=== PATIENT | female | born 1930 | race Caucasian/White ===

== ENCOUNTER 2017-05-24 12:07 | Inpatient (IN) | payer OTHER ==
--- NOTE | 2017-05-24 12:56 | PDOC ---
History of Present Illness - General Chief Complaint: Diarrhea Stated Complaint: Diarrhea Time Seen by Provider: 05/24/17 12:20 - History of Present Illness Initial Comments: 05/24/17 12:54 The patient is an 86 yo f w/ PMH Myesthenia gravis, HTN, DM, HLD who comes into the ER c/o diarrhea for the past 2 weeks. Patient states that the diarrhea started out as loose stool, but eventually progressed to watery stool which started to turn green. The patient states that she uses the bathroom 3 times per day on average. The diarrhea is associated with mild abdominal cramping, decreased appetite and weakness. Patient had a similar episode of these symptoms in late october which resolved after treatment which the patient could not remember. The patient was recently seen at [facility] ER on saturday for these complaints. The patient was diagnosed with a UTI and discharged on cipro which was later changed to amoxicillin/clavulinate as Cipro is contraindicated in myasthenia gravis. Patient denies fevers, chills, sick contacts, recent travel, nausea, vomiting, constipation, chest pain, SOB, chest tightness, blood in stool. Past History - Travel Traveled outside of the country in the last 30 days: No Close contact w/someone who was outside of country & ill: No - Past Medical History Allergies/Adverse Reactions: Allergies Allergy/AdvReac Type Severity Reaction Status Date / Time No Known Allergies Allergy Verified 05/24/17 12:13 Home Medications: Ambulatory Orders Amlodipine Besylate/Benazepril [Lotrel 10-20 mg Capsule] 1 cap PO BID 05/24/17 Amoxicillin/Potassium Clav [Augmentin 875-125 Tablet] 1 each PO DAILY 05/24/17 Fluoxetine HCl 10 mg PO DAILY 05/24/17 Hydralazine HCl 10 mg PO BID 05/24/17 Metformin HCl [Glucophage] 500 mg PO BID 05/24/17 Pantoprazole Sodium 40 mg PO DAILY 05/24/17 Potassium Chloride 10 meq PO DAILY 05/24/17 Pyridostigmine [Mestinon] 60 mg PO TID 05/24/17 Rosuvastatin [Crestor -] 10 mg PO DAILY 05/24/17 COPD: No Diabetes: Yes HTN: Yes Hypercholesterolemia: Yes Other medical history: myesthenia gravis - Surgical History Appendectomy: Yes Cholecystectomy: Yes - Suicide/Smoking/Psychosocial Hx Smoking History: Never smoked Abd/GI Specific PMHX - Complaint Specific PMHX Diverticulitis: No Gall Bladder Disease: Yes Review of Systems - Review of Systems Able to Perform ROS?: Yes Is the patient limited Omani proficient: No Constitutional: Yes: Loss of Appetite, Weakness. No: Chills, Diaphoresis, Fever , Malaise, Night Sweats HEENTM: No: Blurred Vision, Recent change in vision, Double Vision Respiratory: No: Cough, Shortness of Breath Cardiac (ROS): No: Chest Pain, Edema, Lightheadedness, Palpitations, Chest Tightness ABD/GI: Yes: Diarrhea, Poor Fluid Intake, Abdominal cramping. No: Abdominal Distended, Blood Streaked Bowels, Constipated, Rectal Bleeding, Vomiting : Yes: Incontinence (patient incontinent of urine at baseline). No: Burning, Dysuria Integumentary: Yes: Dryness, Pallor. No: Erythema Neurological: No: Headache, Numbness, Tingling Endocrine: No: Excessive Sweating, Intolerance to Cold, Intolerance to Heat *Physical Exam - Vital Signs Last Vital Signs Temp Pulse Resp BP Pulse Ox 97.8 F 76 20 145/69 94 L 05/24/17 12:28 05/24/17 12:28 05/24/17 12:28 05/24/17 12:28 05/24/17 12:28 - Physical Exam General Appearance: Yes: Appropriately Dressed. No: Apparent Distress HEENT: positive: EOMI, BEBE. negative: Scleral Icterus (R), Scleral Icterus (L) Neck: positive: Trachea midline. negative: Tender Respiratory/Chest: positive: Lungs Clear, Normal Breath Sounds. negative: Respiratory Distress, Accessory Muscle Use Cardiovascular: positive: Regular Rhythm, Regular Rate, S1, S2, Murmur ( systolic ejection murmur), Systolic Murmur. negative: Edema, JVD, Gallop/S3, Gallop/S4 Gastrointestinal/Abdominal: positive: Flat, Soft, Increased Bowel Sounds. negative: Tender Musculoskeletal: positive: Normal Inspection Extremity: positive: Normal Inspection Integumentary: positive: Dry, Warm, Pale Neurologic: positive: head of store operations II-XII NML intact, Fully Oriented, Alert, Normal Mood/ Affect, Normal Response, Motor Strength /5 ED Treatment Course - LABORATORY CBC & Chemistry Diagram: 05/24/17 13:12 05/24/17 13:12 Medical Decision Making - Medical Decision Making 05/24/17 13:45 The patient is an 86 yo f w/ PMH Myasthenia gravis, HTN, DM, HLD who comes into the ED c/o watery diarrhea and decreased appetite for the past 2 weeks. Patient was recently seen at [facility], diagnosed with a UTI and sent home on PO ABX which did not help. Patient has also had similar episodes of this diarrhea in the past. -CBC, CMP -Magnesium, Phosphorus -Stool for c.diff, Stool culture, stool for WBCs -IVF 05/24/17 14:11 -patient magnesium 1.1, repleted with 2g iv magnesium -potassium 3.1, repleted with 40meq potassium PO 05/24/17 16:20 -Patient became short of breath shortly after receiving IVF -CXR ordered; read as negative for infiltrate -patient saturating 93% on room air; was saturating 94% on arrival -placed on 2L NC -Patient improved after reassessment 05/24/17 18:45 -patient's SOB continues to improve, though she started to develop nausea; gave reglan -patient and her family member are concerned of her going home as she lives alone and will have difficulty ambulating due to her weakness. -patient's development of SOB and nausea is also concerning; will admit the patient for observation. hospitalist team contacted. 05/24/17 19:16 -hospitalist team aware and will accept the patient *DC/Admit/Observation/Transfer Diagnosis at time of Disposition: Hypokalemia, Shortness of breath Diarrhea Qualifiers: Diarrhea type: unspecified type Qualified Code(s): R19.7 - Diarrhea, unspecified; R19.7 - Diarrhea, unspecified - Discharge Dispostion Condition at time of disposition: Improved Admit: Yes
[2017-05-24 13:28] LABS: BASOPHIL 1.3 % (0-2.0); EOSINOPHIL 1.5 % (0-4.5); MCH 29.7 pg (25.7-33.7); MEAN PLT VOLUME 8.8 fl (7.5-11.1); NEUTROPHILS 58.6 % (42.8-82.8); PLATELET COUNT 296 K/MM3 (134-434); WHITE BLOOD COUNT 11.6 K/mm3 (4.0-10.0)
[2017-05-24] MEDS ORDERED: SODIUM CHLORIDE 500 ML IV STA (13:42)
[2017-05-24 13:57] LABS: ALBUMIN 3.5 g/dl (3.4-5.0); ALK PHOS 94 U/L (45-117); ANION GAP 14 (8-16); BILIRUBIN,TOTAL 0.3 mg/dL (0.2-1.0); CALCIUM 8.9 mg/dL (8.5-10.1); CO2 25 mmol/L (21-32); CREATININE 0.7 mg/dL (0.55-1.02); GLUCOSE,RANDOM 95 mg/dL (74-106); MAGNESIUM 1.1 mg/dL (1.8-2.4); SGOT/AST 26 U/L (15-37); SGPT/ALT 26 U/L (12-78); TOT PROT 6.5 g/dl (6.4-8.2)
--- NOTE | 2017-05-24 14:01 | PDOC ---
Attending Attestation - Resident Resident Name: Hemanth Leyva - ED Attending Attestation I have performed the following: I have examined & evaluated the patient, The case was reviewed & discussed with the resident, I agree w/resident's findings & plan, Exceptions are as noted - HPI HPI: 05/24/17 13:55 86y F hx of myasthemia gravis presens with diarrhea x 2 weeks, w/o associated fever/chills, abd pain, n/v, no complaints of weakness, diplopia, sob, difficulty swallowing or with speech +recent abx usage due to UTI, but the diarrhea precedes the abx usage no recen ttravel on exam the pt appears well abd soft mucus membranes moist cardiac/pulm exam normal - Physicial Exam PE: 05/26/17 14:59 see above - Medical Decision Making 05/24/17 17:24 pts labs revirewed and is unremarkable pt had a epsidoe of sob - after she got some fluids when returning from the bathroom. there was no associated cp, diaphoersis, n/v suspect may possible be due to receiving the fluids too quickly. her lungs were clear w/o and edema cxr shows no pulmonary edema will ambulate the pt, if pt is sob, will observe the pt for her sob and diuresis if she is feeling better, will dc with pm dfu 05/24/17 17:38 pt a bit tachpyneic and hypoxic will obseve the pt will also send a trop/bnp - she did not have any cp pt states she felt naueus and sob when this originally ocurred
[2017-05-24] MEDS ORDERED: MAGNESIUM SULF 50% (8.12 MEQ/2 ML-1 GM VIAL) IVPB ONE (14:06)
[2017-05-24] MEDS ORDERED: POTASSIUM CHLORIDE 20 MEQ PREMIX IVPB 100 ML IVPB ONE (14:06)
[2017-05-24] MEDS ORDERED: POTASSIUM CHLORIDE TABS 20 MEQ TABLET.ER (FP) PO ONE ×2 (14:07→15:12)
[2017-05-24] MEDS ORDERED: MAGNESIUM SULF 50% (8.12 MEQ/2 ML-1 GM VIAL) ONE (15:12)
[2017-05-24] MEDS ORDERED: METOCLOPRAMIDE HCL INJECTION 10 MG/2 ML VIAL IVPUSH ONE (17:20)
[2017-05-24 19:23] LABS: TROPONIN I 0.03 ng/ml (0.00-0.05)
--- NOTE | 2017-05-24 19:32 | HP ---
CHIEF COMPLAINT: Diarrhea PCP: Dr. Micky Perez HISTORY OF PRESENT ILLNESS: Ms. Delacruz is a pleasant 86yo F with PMHx of Myasthenia Gravis (diagnosed 1 yr ago), HTN, HLD who presented w/ diarrhea for 2 weeks. Started off as soft, brown but has changed into a watery green consistency recently. Has had diarrhea in past, seen at [facility] in October 2016, and was given antibiotics (unable to remember name) and improved. 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 She denies abdominal pain, ever having abd pain. Denies intermittent constipation. No fevers, chills, sick contacts, dietary changes. Recently has been on antibiotics for UTI, but diarrhea started prior to abx usage. Denies melena or hematemesis. Denies travel. Diagnosed with almost 1 year ago. Has had 2 crises since then. ER course was notable for: (1) Hemodynamically stable. Given 500cc bolus, caused pt to have SOB and BP 201/ 99 with nausea. CXR negative. Fluids stopped, Zofran given (2) Leukocytosis, Afebrile (3) Trop neg x1 Recent Travel: Denies PAST MEDICAL HISTORY: Myasthenia Gravis, HTN, HLD, NIDDM, MDD PAST SURGICAL HISTORY: Appendectomy, Cholecystectomy Social History: Lives alone, takes medications by herself Smoking: Denies Alcohol: Denies Drugs: Denies Allergies: No Known Allergies Allergy (Verified 05/24/17 12:13) HOME MEDICATIONS: Home Medications Medication Instructions Recorded Amlodipine Besylate/Benazepril 1 cap PO BID 05/24/17 [Lotrel 10-20 mg Capsule] Amoxicillin/Potassium Clav 1 each PO DAILY 05/24/17 [Augmentin 875-125 Tablet] Fluoxetine HCl 10 mg PO DAILY 05/24/17 Hydralazine HCl 10 mg PO BID 05/24/17 Metformin HCl [Glucophage] 500 mg PO BID 05/24/17 Pantoprazole Sodium 40 mg PO DAILY 05/24/17 Potassium Chloride 10 meq PO DAILY 05/24/17 Pyridostigmine [Mestinon] 60 mg PO TID 05/24/17 Rosuvastatin [Crestor -] 10 mg PO DAILY 05/24/17 REVIEW OF SYSTEMS CONSTITUTIONAL: Absent: fever, chills, diaphoresis, generalized weakness, malaise, loss of appetite, weight change HEENT: Absent: rhinorrhea, nasal congestion, throat pain, throat swelling, difficulty swallowing, mouth swelling, ear pain, eye pain, visual changes CARDIOVASCULAR: Absent: chest pain, syncope, palpitations, irregular heart rate, lightheadedness , peripheral edema RESPIRATORY: Absent: cough, shortness of breath, dyspnea with exertion, orthopnea, wheezing, stridor, hemoptysis GASTROINTESTINAL: Absent: abdominal pain, abdominal distension, nausea, vomiting, diarrhea, constipation, melena, hematochezia Present: diarrhea GENITOURINARY: Absent: dysuria, frequency, urgency, hesitancy, hematuria, flank pain, genital pain MUSCULOSKELETAL: Absent: myalgia, arthralgia, joint swelling, back pain, neck pain SKIN: Absent: rash, itching, pallor HEMATOLOGIC/IMMUNOLOGIC: Absent: easy bleeding, easy bruising, lymphadenopathy, frequent infections ENDOCRINE: Absent: unexplained weight gain, unexplained weight loss, heat intolerance, cold intolerance NEUROLOGIC: Absent: headache, focal weakness or paresthesias, dizziness, unsteady gait, seizure, mental status changes, bladder or bowel incontinence PSYCHIATRIC: Absent: anxiety, depression, suicidal or homicidal ideation, hallucinations. PHYSICAL EXAMINATION Vital Signs Temperature 97.8 F 05/24/17 12:28 Pulse Rate 76 05/24/17 16:28 Respiratory Rate 30 H 05/24/17 16:28 Blood Pressure 189/85 05/24/17 16:28 O2 Sat by Pulse Oximetry (%) 97 05/24/17 16:28 GEN: AAOx3, NAD HEENT: PERRLA, EOMi, no ptosis, no cervical LAD CV: S1, S2, RRR, 4/6 systolic murmur LUNG: CTABL ABD: Soft, mildly distended, nontender, hyperactive BS MSK: No edema, no erythema NEURO: Normal sensation, 5/5 strength throughout Laboratory Last Values WBC 11.6 K/mm3 (4.0-10.0) H 05/24/17 13:12 RBC 4.64 M/mm3 (3.60-5.2) 05/24/17 13:12 Hgb 13.8 GM/dL (10.7-15.3) 05/24/17 13:12 Hct 41.7 % (32.4-45.2) 05/24/17 13:12 MCV 90.0 fl (80-96) 05/24/17 13:12 MCH 29.7 pg (25.7-33.7) 05/24/17 13:12 MCHC 33.0 g/dl (32.0-36.0) 05/24/17 13:12 RDW 13.0 % (11.6-15.6) 05/24/17 13:12 Plt Count 296 K/MM3 (134-434) 05/24/17 13:12 MPV 8.8 fl (7.5-11.1) 05/24/17 13:12 Neutrophils % 58.6 % (42.8-82.8) 05/24/17 13:12 Lymphocytes % 30.0 % (8-40) 05/24/17 13:12 Monocytes % 8.6 % (3.8-10.2) 05/24/17 13:12 Eosinophils % 1.5 % (0-4.5) 05/24/17 13:12 Basophils % 1.3 % (0-2.0) 05/24/17 13:12 Sodium 139 mmol/L (136-145) 05/24/17 13:12 Potassium 3.1 mmol/L (3.5-5.1) L 05/24/17 13:12 Chloride 100 mmol/L (98-107) 05/24/17 13:12 Carbon Dioxide 25 mmol/L (21-32) 05/24/17 13:12 Anion Gap 14 (8-16) 05/24/17 13:12 BUN 7 mg/dL (7-18) 05/24/17 13:12 Creatinine 0.7 mg/dL (0.55-1.02) 05/24/17 13:12 Creat Clearance w eGFR > 60 (>60) 05/24/17 13:12 Random Glucose 95 mg/dL (74-106) 05/24/17 13:12 Calcium 8.9 mg/dL (8.5-10.1) 05/24/17 13:12 Phosphorus 3.0 mg/dL (2.5-4.9) 05/24/17 13:12 Magnesium 1.1 mg/dL (1.8-2.4) L 05/24/17 13:12 Total Bilirubin 0.3 mg/dL (0.2-1.0) 05/24/17 13:12 AST 26 U/L (15-37) 05/24/17 13:12 ALT 26 U/L (12-78) 05/24/17 13:12 Alkaline Phosphatase 94 U/L (45-117) 05/24/17 13:12 Creatine Kinase 108 IU/L (26-192) 05/24/17 18:37 Troponin I 0.03 ng/ml (0.00-0.05) 05/24/17 18:37 B-Natriuretic Peptide 655.96 pg/ml (5-450) H 05/24/17 18:37 Total Protein 6.5 g/dl (6.4-8.2) 05/24/17 13:12 Albumin 3.5 g/dl (3.4-5.0) 05/24/17 13:12 Active Medications Generic Name Dose Route Start Last Admin Trade Name Freq PRN Reason Stop Dose Admin Fluoxetine HCl 10 mg 05/25/17 10:00 Prozac - PO DAILY [facility] Heparin Sodium (Porcine) 5,000 unit 05/24/17 22:00 Heparin - SQ BID [facility] Hydralazine HCl 10 mg 05/24/17 23:00 Apresoline - PO BID [facility] Insulin Aspart 1 vial 05/24/17 22:00 Novolog Vial Sliding Scale - SQ ACHS [facility] Protocol Non-Formulary Medication 1 cap 05/24/17 23:00 Amlodipine Besylate/Benazepril [Lotrel 10-20 Mg Capsule] PO BID [facility] Pyridostigmine [place] 60 mg 05/24/17 23:00 Mestinon - PO TID [facility] Rosuvastatin Calcium 10 mg 05/25/17 10:00 Crestor - PO DAILY [facility] ASSESSMENT/PLAN: # Diarrhea - 2 weeks, leukocytosis, prior episodes relieved w/ abx, could be 2/ 2 infection vs sfx of Myasthenia - Start Flagyl/Ceftriaxone (quinolones exacerbate MG), C.diff Ag & Tox, stool studies, contact precautions - Will hold off on imaging due to no abd pain - Pt presented to [facility] in October 2016 w/ diarrhea, had abd CT w/ PO contrast and was given abx, should obtain records in AM - Recheck BP, if SBP >180 will hold fluids, otherwise will start 42cc/hr + clear liquid diet # Hypertensive Urgency - BP increased due to SOB episode in ER, improved w/ home meds, continue Amlodipine/Benazepril + Hydralazine # Hypokalemia/Hypomagnesemia - Replaced w/ IV Mg and PO KCl, likely 2/2 diarrhea , repeat BMP w/ Mg tmrw # NIDDM - ISS + BGMs ACHS, hold oral hypoglycemic agents # MDD - Continue Fluoxetine # HLD - Continue Statin # UTI - Diagnosed w/ UTI recently, was on Augmentin, will be treated with abx given here # FEN - Will recheck BP, if more controlled, will start IVF @ 75cc/hr, clear liquid diet, ADAT # PPx - HSQ BID, no GI ppx needed # Dispo - Admit to observation d/w Dr. Deborah Arteaga MD - PGY1 Internal Medicine Visit type - Emergency Visit Emergency Visit: Yes ED Registration Date: 05/24/17 Care time: The patient presented to the Emergency Department on the above date and was hospitalized for further evaluation of their emergent condition. - New Patient This patient is new to me today: Yes Date on this admission: 05/24/17 - Critical Care Critical Care patient: No
--- NOTE | 2017-05-24 21:30 | PN ---
Teaching Attending Note Name of Resident: Geovany Arteaga ATTENDING PHYSICIAN STATEMENT I saw and evaluated the patient. I reviewed the resident's note and discussed the case with the resident. I agree with the resident's findings and plan as documented. SUBJECTIVE: this is an 86 y/o female with mysthenia gravis, MDD, hypertension and dyslipidemia presented to the hospital with complaints of diarrhea, according to the patient she has had diarrhea for the past 2 wks, she stated that she recently has been on an antibiotic for the management of urinary tract infection. the patient state that she had a change in the color of stools to be green in color. she stated that the patient that she had diarrhea in the past but the color was usually brown. but it is watery as it is today. she has been losing weight, patient stated that is has been due to the lack of eating. she has similar admissions in the past to different hospital where according to the patient she has had a CT abdomen and they found an adrenal mass , she has been following up with an machine welder for the mass which was diagnosed 10/2016. she has no abdominal symptoms at the time of exam. she denied any food intake for outside cv OBJECTIVE: patient is laying comfortably in bed without any issues s1 and S2 RRR, with a systolic murmur heard over the aortic valve lungs CTA bowel sounds hyperactive, distended without any tenderness noted no ext edema patient was noted to be hypertensive at the time of exam she received bolus of fluid in the ER ASSESSMENT AND PLAN: admit this patient for colitis vs c. diff start the patient on metronidazole 500mg BID avoid quinolones due to QT prolongation and possible exacerbation of MS ceftriaxone for urinary symptoms place the patient on contact isolation send stool studies obtain records for abdominal CT scan repeat abdominal CT scan with contrast IV/PO if the patient is having symptoms. electrolyte abnormalities replenishment of Mg replenishment of K+ c/w home medication
[2017-05-24] MEDS: HEPARIN NA (PORCINE) 5,000 UNITS/ML 1ML VIAL SQ SCH (22:37)
[2017-05-24] MEDS ORDERED: PATIENT'S OWN MEDICATION (NON-FORMULARY) (Amlodipine Besylate/Benazepril [Lotrel 10-20 Mg PO SCH (23:00)
[2017-05-24] MEDS: PYRIDOSTIGMINE BROMIDE 60 MG TABLET PO SCH (23:37)
[2017-05-24] MEDS: hydrALAZINE HCL 10 MG TABLET PO SCH (23:37)
[2017-05-24] MEDS: amLODIPine BESYLATE 10 MG TABLET (FP) PO SCH (23:37)
[2017-05-24] MEDS: LISINOPRIL 20 MG TABLET (FP) PO SCH (23:37)
[2017-05-24] MEDS: INSULIN SLIDING SCALE (NOVOLOG) 1 VIAL SQ SCH (23:41)
[2017-05-25 03:51] VITALS: BMI 27.1
[2017-05-25] MEDS: PYRIDOSTIGMINE BROMIDE 60 MG TABLET PO SCH ×3 (06:43→22:50)
[2017-05-25] MEDS: INSULIN SLIDING SCALE (NOVOLOG) 1 VIAL SQ SCH ×4 (06:44→22:50)
[2017-05-25 07:47] LABS: ANION GAP 13 (8-16); CALCIUM 8.4 mg/dL (8.5-10.1); CO2 24 mmol/L (21-32); CREATININE 0.6 mg/dL (0.55-1.02); GLUCOSE,RANDOM 130 mg/dL (74-106); MAGNESIUM 1.4 mg/dL (1.8-2.4)
[2017-05-25 08:11] LABS: MCH 30.2 pg (25.7-33.7); MCHC 33.7 g/dl (32.0-36.0); MEAN CELL VOLUME 89.6 fl (80-96); MEAN PLT VOLUME 9.6 fl (7.5-11.1); PLATELET COUNT 287 K/MM3 (134-434); RDW 13.2 % (11.6-15.6)
[2017-05-25] MEDS: LISINOPRIL 20 MG TABLET (FP) PO SCH (10:28)
[2017-05-25] MEDS: ROSUVASTATIN CA 10 MG TABLET (FP) PO SCH (10:28)
[2017-05-25] MEDS: hydrALAZINE HCL 10 MG TABLET PO SCH ×2 (10:28→22:50)
[2017-05-25] MEDS: FLUoxetine HCL 10 MG CAPSULE (FP) PO SCH (10:28)
[2017-05-25] MEDS: amLODIPine BESYLATE 10 MG TABLET (FP) PO SCH (10:28)
[2017-05-25] MEDS: HEPARIN NA (PORCINE) 5,000 UNITS/ML 1ML VIAL SQ SCH ×2 (10:29→22:50)
[2017-05-25] MEDS ORDERED: POTASSIUM CHLORIDE TABS 20 MEQ TABLET.ER (FP) PO SCH ×2 (11:15→13:00)
[2017-05-25] MEDS ORDERED: MAGNESIUM SULF 50% (8.12 MEQ/2 ML-1 GM VIAL) IVPB ONE (12:00)
[2017-05-25] MEDS: POTASSIUM CHLORIDE ORAL LIQUID 20 MEQ/15 ML PO SCH ×2 (12:38→22:50)
[2017-05-25] MEDS: metroNIDAZOLE 250 MG TABLET PO SCH ×2 (15:08→22:50)
--- NOTE | 2017-05-25 16:11 | PN ---
Physical Exam: SUBJECTIVE: Patient seen and examined oob to chair. Nephew who is HCP present. Difficulty swallowing, choked on some liquid earlier, still coughing. HPI additional history: Patient was in [facility] a week ago for a UTI. She was discharged on antibiotics but only took 2 out of 7 doses because she could not swallow the pills. She has had difficulty swallowing x 2 weeks. Patient's neurologist, Dr. Urrutia, at [facility], has been planning on starting patient on IVIG. Her last acute exacerbation of myasthenia gravis was in August 2016 exhibited as difficulty swallowing. OBJECTIVE: Vital Signs Period Temp Pulse Resp BP Sys/Coulter Pulse Ox Last 24 Hr 97.2 F-98.2 F 66-90 18-20 141-160/59-79 96-97 GENERAL: The patient is awake, alert, and fully oriented, in mild distress secondary to coughing LUNGS: Weak inspiratory effort, no wheezes, no crackles, no accessory muscle use. Weak cough, not clearing secretions. HEART: Regular rate and rhythm, S1, S2, + murmur ABDOMEN: Soft, nontender, nondistended EXTREMITIES: 2+ pulses, warm, well-perfused, no edema. NEUROLOGICAL: Bilateral lid drooping Laboratory Results - last 24 hr 05/24/17 05/25/17 05/25/17 23:40 06:20 06:20 WBC 10.0 RBC 4.55 Hgb 13.7 Hct 40.7 MCV 89.6 MCH 30.2 MCHC 33.7 RDW 13.2 Plt Count 287 MPV 9.6 Puncture Site ABG pH ABG pCO2 at Pt Temp ABG pO2 at Pt Temp ABG HCO3 ABG O2 Sat (Measured) ABG O2 Content ABG Base Excess Vasyl Test O2 Delivery Device Oxygen Flow Rate PEEP Sodium 139 Potassium 3.2 L Chloride 102 Carbon Dioxide 24 Anion Gap 13 BUN 8 Creatinine 0.6 POC Glucometer 118 Random Glucose 130 H D Calcium 8.4 L Magnesium 1.4 L D 05/25/17 05/25/17 05/25/17 06:42 11:18 16:35 WBC RBC Hgb Hct MCV MCH MCHC RDW Plt Count MPV Puncture Site Left radial ABG pH 7.35 ABG pCO2 at Pt Temp 48.0 H ABG pO2 at Pt Temp 127.0 H ABG HCO3 25.8 ABG O2 Sat (Measured) 98.3 ABG O2 Content 19.3 ABG Base Excess 0.1 Vasyl Test Positive O2 Delivery Device Nasal Oxygen Flow Rate 2 PEEP 0.0 Sodium Potassium Chloride Carbon Dioxide Anion Gap BUN Creatinine POC Glucometer 132 130 Random Glucose Calcium Magnesium 05/25/17 17:07 WBC RBC Hgb Hct MCV MCH MCHC RDW Plt Count MPV Puncture Site ABG pH ABG pCO2 at Pt Temp ABG pO2 at Pt Temp ABG HCO3 ABG O2 Sat (Measured) ABG O2 Content ABG Base Excess Vasyl Test O2 Delivery Device Oxygen Flow Rate PEEP Sodium Potassium Chloride Carbon Dioxide Anion Gap BUN Creatinine POC Glucometer 165 Random Glucose Calcium Magnesium Active Medications Generic Name Dose Route Start Last Admin Trade Name Freq PRN Reason Stop Dose Admin Amlodipine Besylate 10 mg 05/24/17 23:30 05/25/17 10:28 Norvasc - PO 10 mg DAILY THANH Administration Fluoxetine HCl 10 mg 05/25/17 10:00 05/25/17 10:28 Prozac - PO 10 mg DAILY [facility] Administration Heparin Sodium (Porcine) 5,000 unit 05/24/17 22:00 05/25/17 10:29 Heparin - SQ Not Given BID [facility] Hydralazine HCl 10 mg 05/24/17 23:00 05/25/17 10:28 Apresoline - PO 10 mg BID [facility]AN[facility] Administration Insulin Aspart 1 vial 05/24/17 22:00 05/25/17 11:20 Novolog Vial Sliding Scale - SQ Not Given ACHS [facility] Protocol Lisinopril 20 mg 05/24/17 23:30 05/25/17 10:28 Prinivil PO 20 mg DAILY THANH Administration Metronidazole 500 mg 05/25/17 14:00 05/25/17 15:08 Flagyl - PO Not Given TID THANH Potassium Chloride 40 meq 05/25/17 12:30 05/25/17 12:38 Potassium Chloride Oral Liquid PO 05/25/17 22:01 40 meq BID THANH Administration Pyridostigmine [place] 60 mg 05/24/17 23:00 05/25/17 15:09 Mestinon - PO Not Given TID [facility]ANH Rosuvastatin Calcium 10 mg 05/25/17 10:00 05/25/17 10:28 Crestor - PO 10 mg DAILY THANH Administration ASSESSMENT/PLAN 86 year-old female with a PMH significant for HTN, HLD, NIDDM, and myasthenia gravis x 1 year. Presented with primary complaint of diarrhea x 2 weeks. Exhibits signs and symptoms of myasthenia gravis exacerbation with hypercapnic respiratory distress. Converted to inpatient status. Myasthenia gravis exacerbation Hypercapnic respiratory distress --inability to swallow, keep NPO --bulbar symptoms: lid lag --PaCO2 48 --per patient and HCP, neurologist has been planning on starting IVIG --neuro consult requested Systolic heart murmur possibly secondary to aortic stenosis --murmur on exam, together with spike in BP following 500cc bolus of IV fluids in ED, concern for aortic stenosis --echo ordered --very gentle IV fluids while NPO Diarrhea --monitor and correct electrolytes --no fever, no leukocytosis, c.diff neg; stop metronidazole F/E/N Fluids: NS @ 42mL/hr Electrolytes: replete as indicated Nutrition: NPO; swallow evaluation DVT prophylaxis: subq heparin Dispo: requires inpatient care. Full Code. Visit type - Emergency Visit Emergency Visit: Yes ED Registration Date: 05/24/17 Care time: The patient presented to the Emergency Department on the above date and was hospitalized for further evaluation of their emergent condition. - New Patient This patient is new to me today: Yes Date on this admission: 05/25/17 - Critical Care Critical Care patient: No
[2017-05-25 17:41] LABS: ARTERIAL BLD GAS O2 SATURATION 98.3 % (90-98.9); ARTERIAL BLOOD GAS BASE EXCESS 0.1 meq/l (-2-2); ARTERIAL BLOOD GAS HCO3 25.8 meq/L (22-26); ARTERIAL BLOOD GAS pH 7.35 (7.35-7.45)
[2017-05-25 17:43] LABS: ALLENS TEST POSITIVE; ART PUNCT SITE LEFT RADIAL; LPM/O2% 2; PT. ON O2? YES; TYPE OF O2 NASAL
[2017-05-25] MEDS ORDERED: PT OWN MED DRAWER 7, Y5N ONE (21:33)
[2017-05-25] MEDS ORDERED: SODIUM CHLORIDE 1,000 ML IV SCH (22:15)
[2017-05-26 01:47] LABS: URINE APPEARANCE CLEAR; URINE BILIRUBIN NEGATIVE (NEGATIVE); URINE BLOOD NEGATIVE (NEGATIVE); URINE COLOR YELLOW; URINE GLUCOSE (UA) 1+ (NEGATIVE); URINE KETONE 1+ (NEGATIVE); URINE NITRITE NEGATIVE (NEGATIVE); URINE UROBILINOGEN NEGATIVE mg/dL (0.2-1.0)
[2017-05-26 01:48] LABS: URINE PROTEIN 1+ (NEGATIVE)
[2017-05-26 01:50] LABS: URINE HYALINE CAST 12 /lpf; URINE MUCUS RARE; URINE RBC 4; URINE WBC 15
[2017-05-26] MEDS: PYRIDOSTIGMINE BROMIDE 60 MG TABLET PO SCH ×3 (06:41→22:05)
[2017-05-26] MEDS: INSULIN SLIDING SCALE (NOVOLOG) 1 VIAL SQ SCH ×4 (06:41→21:33)
[2017-05-26] MEDS ORDERED: METOPROLOL TARTRATE 5 MG/5 ML VIAL ONE (09:16)
[2017-05-26] MEDS ORDERED: METOPROLOL TARTRATE 5 MG/5 ML VIAL IVPUSH ONE (09:32)
[2017-05-26] MEDS ORDERED: dilTIAZem HCL 50 MG/10 ML - 10 ML VIAL IVPUSH ONE (09:33)
--- NOTE | 2017-05-26 09:40 | PN ---
Progress Note (short form) - Note Progress Note: Subjective: feels palpitations , has no CP , has no fever or chills. slightly short of breath . no cough . Objective: Vital Signs: Last Vital Signs Temp Pulse Resp BP Pulse Ox 97.6 F 109 H 20 156/80 96 05/26/17 06:00 05/26/17 06:00 05/26/17 06:00 05/26/17 06:00 05/25/17 21:00 Laboratory Results - last 24 hr 05/25/17 05/25/17 05/25/17 11:18 16:35 17:07 Puncture Site Left radial ABG pH 7.35 ABG pCO2 at Pt Temp 48.0 H ABG pO2 at Pt Temp 127.0 H ABG HCO3 25.8 ABG O2 Sat (Measured) 98.3 ABG O2 Content 19.3 ABG Base Excess 0.1 Vasyl Test Positive O2 Delivery Device Nasal Oxygen Flow Rate 2 PEEP 0.0 POC Glucometer 130 165 Urine Color Urine Appearance Urine pH Ur Specific [place] Urine Protein Urine Glucose (UA) Urine Ketones Urine Blood Urine Nitrite Urine Bilirubin Urine Urobilinogen Urine RBC Urine WBC Ur Epithelial Cells Hyaline Casts Urine Mucus 05/25/17 05/25/17 05/26/17 19:15 22:48 06:52 Puncture Site ABG pH ABG pCO2 at Pt Temp ABG pO2 at Pt Temp ABG HCO3 ABG O2 Sat (Measured) ABG O2 Content ABG Base Excess Vasyl Test O2 Delivery Device Oxygen Flow Rate PEEP POC Glucometer 125 200 Urine Color Yellow Urine Appearance Clear Urine pH 5.0 Ur Specific [place] 1.015 Urine Protein 1+ H Urine Glucose (UA) 1+ H Urine Ketones 1+ H Urine Blood Negative Urine Nitrite Negative Urine Bilirubin Negative Urine Urobilinogen Negative Urine RBC 4 Urine WBC 15 Ur Epithelial Cells Rare Hyaline Casts 12 Urine Mucus Rare Physical Exam: AN ,awake , alert and cooperative. CV: irreg irreg , 3/6 SM at base and LLSB,also heard fainter in apex. no radiation to carotids Lungs : CTAB , decreased breath sounds at bases Abd: soft, NT, ND , NL BS Ext: no edema . feet with no signs of fugal infection . DP 2+ b/l neuro: EOMI, round equal pupils, no facial droop, tongue at mid line . strength 55 in upper and lower extremities proximallya nd distally. sensation tolight touch NL. relfexes 2+ knee jerk and biceps bl Assessment/Plan: 86 y/o lady with h/o HTN, DM , recent diagnosis of MG, and hyperlipidemia who presented with difficulty swallowing and SOB . Now with irregular heart rate 1- New onset AFib : no clear trigger. has no signs of infection , ( asympromatic pyuria, urine cx pending ) . a murmur heard on exam ? aortic steossi and possible MS. PE is unlikely , sat O2 97 %, no CP - Gave 5 mg of lopressor IV, Hr improved form 157 to 130 . BP 119/70 - Will give 5 of cardisem - Transfer to tele and place on cardizem gtt if needed. - CHADSVASC score of 5. High risk for stroke. Risk of stroke without AC and the risk of bleed with AC were d/w her nephew Erickson ( she elected to defer to him). She had hematuria with sq heparin in a NH before,but no other bleed. Nephew decided to accept the risk of bleed with heparin gtt . - will start heparin gtt. if she bleeds will stop - decision on long term acute care registered nurse AC agent is to be determined if she does not bleed - Echo - follow urine cx - nO signs of heart failure now, will stop IVF while in RVR - consult card 2- Difficulty swallowing with h/o MG: need to r/o MG flare - follow neurology recs. will call - NPO - speech eval 3- h/o HTN: hold off PO meds due to difficulty swallowing pills. -PRN BB if needed 4- h/o HLP: resume statin when able to take PO DVT PX : heaprin gtt Code status d/w her , deferred to nephew. DNR. and will decide on DNI later today CCT 45 min tx to tele Visit type - Emergency Visit Emergency Visit: Yes ED Registration Date: 05/24/17 Care time: The patient presented to the Emergency Department on the above date and was hospitalized for further evaluation of their emergent condition. - New Patient This patient is new to me today: Yes Date on this admission: 05/26/17 - Critical Care Critical Care patient: No
[2017-05-26] MEDS: HEPARIN NA (PORCINE) 5,000 UNITS/ML 1ML VIAL SQ SCH (09:51)
[2017-05-26] MEDS: ROSUVASTATIN CA 10 MG TABLET (FP) PO SCH (09:51)
[2017-05-26] MEDS: FLUoxetine HCL 10 MG CAPSULE (FP) PO SCH (09:51)
[2017-05-26] MEDS ORDERED: HEPARIN NA (PORCINE) 5,000 UNITS/ML 1ML VIAL IVPUSH PRN ×4 (10:04→10:30)
[2017-05-26] MEDS ORDERED: dilTIAZem HCL 50 MG/10 ML - 10 ML VIAL ONE (10:15)
[2017-05-26] MEDS ORDERED: HEPARIN - 25,000 UNIT in SODIUM CHLORIDE 495 ML IV SCH (10:15)
[2017-05-26 10:59] LABS: BASOPHIL 0.5 % (0-2.0); MCH 29.4 pg (25.7-33.7); MCHC 32.4 g/dl (32.0-36.0); MEAN PLT VOLUME 8.7 fl (7.5-11.1); PLATELET COUNT 344 K/MM3 (134-434); RDW 13.1 % (11.6-15.6); WHITE BLOOD COUNT 14.2 K/mm3 (4.0-10.0)
[2017-05-26 11:15] LABS: INR 0.88 (0.82-1.09); PROTHROMBIN TIME (PATIENT) 9.9 SEC (9.98-11.88)
[2017-05-26] MEDS ORDERED: HEPARIN NA (PORCINE) 5,000 UNITS/ML 1ML VIAL IVPUSH ONE (11:15)
[2017-05-26] MEDS ORDERED: DILTIAZEM INJECTION 125 MG in DEXTROSE 5%-WATER - 100 ML IVPB SCH (11:15)
[2017-05-26 11:18] LABS: URINE LEUK ESTERASE Negative (NEGATIVE)
[2017-05-26 11:24] LABS: ANION GAP 10 (8-16); CO2 27 mmol/L (21-32); CREATININE 0.9 mg/dL (0.55-1.02); GLUCOSE,RANDOM 187 mg/dL (74-106); MAGNESIUM 1.9 mg/dL (1.8-2.4); PHOSPHOROUS 3.8 mg/dL (2.5-4.9)
[2017-05-26 11:26] LABS: CPK 70 IU/L (26-192); TROPONIN I 0.04 ng/ml (0.00-0.05)
[2017-05-26] MEDS: HEPARIN - 25,000 UNIT in SODIUM CHLORIDE 495 ML IV SCH (11:30)
--- NOTE | 2017-05-26 11:59 | CON.CARD ---
Consult Consult Specialty:: Cardiology Referred by:: francia Cabrera Reason for Consultation:: Afib - History of Present Illness Chief Complaint: SOB History of Present Illness: 86 year old female with myasthenia gravis, MDD, htn, and hld presented with diarrhea for 2 weeks. +weight loss. Reports adrenal mass on ct abd in past. Was transferred to MICU for sob and myasthenia. Noted to be in new afib with RVR. No chest pain or palpitations but does report sob. No signs of chf on exam. - History Source History Provided By: Patient, Medical Record - Smoking History Smoking history: Never smoked Home Medications - Allergies Allergies/Adverse Reactions: Allergies Allergy/AdvReac Type Severity Reaction Status Date / Time No Known Allergies Allergy Verified 05/24/17 12:13 - Home Medications Home Medications: Ambulatory Orders Amlodipine Besylate/Benazepril [Lotrel 10-20 mg Capsule] 1 cap PO BID 05/24/17 Amoxicillin/Potassium Clav [Augmentin 875-125 Tablet] 1 each PO DAILY 05/24/17 Fluoxetine HCl 10 mg PO DAILY 05/24/17 Hydralazine HCl 10 mg PO BID 05/24/17 Metformin HCl [Glucophage] 500 mg PO BID 05/24/17 Pantoprazole Sodium 40 mg PO DAILY 05/24/17 Potassium Chloride 10 meq PO DAILY 05/24/17 Pyridostigmine [Mestinon] 60 mg PO TID 05/24/17 Rosuvastatin [Crestor -] 10 mg PO DAILY 05/24/17 Vital Signs: Vital Signs Temperature 97.5 F L 05/26/17 10:49 Pulse Rate 134 H 05/26/17 10:49 Respiratory Rate 22 05/26/17 10:49 Blood Pressure 126/55 05/26/17 10:49 O2 Sat by Pulse Oximetry (%) 98 05/26/17 10:37 Constitutional: Yes: Mild Distress Neck: Yes: Trachea Midline Respiratory: Yes: CTA Bilaterally Gastrointestinal: Yes: Soft Cardiovascular: Yes: Tachycardia, Pulse Irregular JVD: No Carotid Bruit: No Heart Sounds: Yes: S1, S2 Murmur: No: Systolic Murmur Edema: No - Other Data Labs, Other Data: CBC, BMP 05/26/17 10:35 05/26/17 10:35 INR, PTT INR 0.88 (0.82-1.09) 05/26/17 10:35 Troponin, BNP 05/26/17 05/26/17 10:35 10:35 Troponin I 0.04 Cancelled Troponin, BNP 05/26/17 05/26/17 10:35 10:35 Troponin I 0.04 Cancelled Imaging - Results Chest X-ray: Report Reviewed Assessment/Plan 86 year old female with myasthenia gravis, MDD, htn, and hld presented with diarrhea for 2 weeks. +weight loss. Reports adrenal mass on ct abd in past. Was transferred to MICU for sob and myasthenia. Noted to be in new afib with RVR. No chest pain or palpitations but does report sob. No signs of chf on exam. 1) Afib Patient is npo and cannot tolerate PO Started on diltiazem. Would further uptitrate for better rate control. Meets criteria for anticoaglation if no contraindication Plan for echocardiogram to evaluate LVEF and valve anatomy and if no plan for interventions and no valve disease than can change to NOAC. Continue to monitor on crop picker samuel
--- NOTE | 2017-05-26 13:13 | CON.NEURO ---
Consult Consult Specialty:: NEUROLOGY-CLEMENTE TREVIÑO Reason for Consultation:: Myasthenia Gravis - History of Present Illness Chief Complaint: Hx. of MG History of Present Illness: Ms. Delacruz is a pleasant 86yo F with PMHx of Myasthenia Gravis (diagnosed 1 yr ago), HTN, HLD who presented w/ diarrhea for 2 weeks. Started off as soft, brown but has changed into a watery green consistency recently. Has had diarrhea in past, seen at [facility] in October 2016, and was given antibiotics (unable to remember name) and improved. 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 She denies abdominal pain, ever having abd pain. Denies intermittent constipation. No fevers, chills, sick contacts, dietary changes. Recently has been on antibiotics for UTI, but diarrhea started prior to abx usage. Denies melena or hematemesis. Denies travel. Diagnosed with almost 1 year ago. Has had 2 crises since then. ER course was notable for: (1) Hemodynamically stable. Given 500cc bolus, caused pt to have SOB and BP 201/ 99 with nausea. CXR negative. Fluids stopped, Zofran given (2) Leukocytosis, Afebrile (3) Trop neg x1 Hx. obtained from patients son- she was dx. with MG last year presenting with diplopia/ocular muscle palsies, was placed on Mestinon, is being treated by a neurologist at [facility]. She had a myasthenic crisis in 10/05 with again diplopia and in 02/04 with dysphagia, neck muscle weakness and both times was treated succesfully with IVIG, has been on current Mestinon dose x months and was doing well until 2 weeks ago when she began to have diarrhoea and anorexia-she was placed on Cipro which was switched to Amoxicillin at some point this past week. Pt. reports she does not have double vision nor peripheral muscle weakness, as per son she has some difficulty swallowing but is able to take her pills and soft foods. Pt. denies lacrimation and all other neurologic symptoms. She c/o shortness of breath and dizziness/lightheadedness. - History Source History Provided By: Patient, Family Member - Smoking History Smoking history: Never smoked Home Medications - Allergies Allergies/Adverse Reactions: Allergies Allergy/AdvReac Type Severity Reaction Status Date / Time No Known Allergies Allergy Verified 05/24/17 12:13 - Home Medications Home Medications: Ambulatory Orders Amlodipine Besylate/Benazepril [Lotrel 10-20 mg Capsule] 1 cap PO BID 05/24/17 Amoxicillin/Potassium Clav [Augmentin 875-125 Tablet] 1 each PO DAILY 05/24/17 Fluoxetine HCl 10 mg PO DAILY 05/24/17 Hydralazine HCl 10 mg PO BID 05/24/17 Metformin HCl [Glucophage] 500 mg PO BID 05/24/17 Pantoprazole Sodium 40 mg PO DAILY 05/24/17 Potassium Chloride 10 meq PO DAILY 05/24/17 Pyridostigmine [Mestinon] 60 mg PO TID 05/24/17 Rosuvastatin [Crestor -] 10 mg PO DAILY 05/24/17 Physical Exam-Neuro Vital Signs: Vital Signs Temperature 97.5 F L 05/26/17 10:49 Pulse Rate 123 H 05/26/17 12:05 Respiratory Rate 26 H 05/26/17 12:00 Blood Pressure 141/89 05/26/17 12:05 O2 Sat by Pulse Oximetry (%) 98 05/26/17 10:37 Labs: CBC, BMP 05/26/17 10:35 05/26/17 10:35 INR, PTT INR 0.88 (0.82-1.09) 05/26/17 10:35 - Neuro Exam Level Of Consciousness: Yes: Alert, Oriented to Person, Oriented to Place, Oriented to Time Eyes: Yes: BEBE (Somewhat hypophonic) Dominant Hand: Right Mini Mental Exam: Awake, alert, follows all commands, Cranial Nerves II-XII Intact: Yes (Nio facial muscle weakness noted.) Gag: Present DTR's: 0 Left Achilles, 0 Right Achilles, 1+ Left Bicep, 1+ Right Bicep, 1+ Left Tricep, 1+ Right Tricep, 1+ Left Brachioradialis, 1+ Right Brachioradialis Babinski: Absent Response to light touch: Normal Response to pain prick: Normal Response to vibration: Normal Motor Strength: 5/5: Left Arm, Right Arm, Left Leg, Right Leg ( No cervical muscle weakness noted.) Gait: Deferred Assessment/Plan Pt. with hx. of MG x1, stable on Mestinon 60mg tid since her last Myasthenic crisis in 02/04. She now presents with diarrhoea x 2 weeks. O2 sat-96%.She does not appear to be in a myasthenic crisis nor in a cholinergic crisis. Ms. Delacruz has new onset Afib, placed on diltiazem. The sob appears to be related to afib, she is thought not to be in cardiac failure as per cardiology. Suggest: 1) Cont. Mestinon 60mg tid. 2) Swallowing evaluation tomorrow. 3) Pls. ask resp. therapy to measure FEV1 and NIF-after she has received her dose of Lasix 4) If possible switch amoxicillin to another abx. and diltiazem to another anti arrhythmic-diltiazem/amoxicillin- can sometimes precipitate a myasthenic crisis particularly in the elderly. 5) Will monitor pt. closely. Thank you, Racquel Gilliam MD
[2017-05-26 13:22] LABS: ARTERIAL BLD GAS O2 SATURATION 95.9 % (90-98.9); ARTERIAL BLOOD GAS BASE EXCESS -3.5 meq/l (-2-2); ARTERIAL BLOOD GAS PO2 97.3 mmHg (68-100)
[2017-05-26 13:28] LABS: ARTERIAL BLOOD GAS pH 7.15 (7.35-7.45)
[2017-05-26 13:29] LABS: ALLENS TEST POSITIVE; ART PUNCT SITE RIGHT RADIAL; LPM/O2% 50; PT. ON O2? YES; TYPE OF O2 VENT
[2017-05-26] MEDS ORDERED: FUROSEMIDE 40 MG/4 ML INJECTABLE VIAL IVPUSH ONE (14:10)
--- NOTE | 2017-05-26 14:19 | HOSP ---
Subjective - Review of Symptoms Events since last encounter: called by RN, pt does not feel good. pt seen , feels tiered and sleepy. no cp cont to feel SOB on exam , HR 67, BP 139/70 , SAt 95 on face mask . lungs , poor air movement . minimal crackles at R base - AGB obtained indicating resp acidosis - will obtain cxray - give 20 of IV lasix - Decrease cardizem rate from 7 to 5 /hr , try to taper off - Not on any B lactams . will hold off abx until urine cx come back due to risk of worsening muscle weakness - will call Dr. Gilliam to discuss, whether IvIG needs to be given - NPO for now - code status d/w nephew again. she is DNR only. Can be intubated if needed CCT 30 min Physical Examination Vital Signs: Vital Signs Temperature 97.5 F L 05/26/17 10:49 Pulse Rate 123 H 05/26/17 12:05 Respiratory Rate 26 H 05/26/17 12:00 Blood Pressure 141/89 05/26/17 12:05 O2 Sat by Pulse Oximetry (%) 96 05/26/17 12:15 Labs: CBC, BMP 05/26/17 10:35 05/26/17 10:35
[2017-05-26] MEDS ORDERED: DIGOXIN 0.5 MG/2 ML AMPUL ONE (14:30)
--- NOTE | 2017-05-26 14:53 | PN ---
Progress Note, DRIER TAKE OFF TENDER - Note Progress Note: 86 y/o lady with h/o HTN, DM ,diagnosis of MG, and hyperlipidemia who presented with difficulty swallowing and SOB ,irregular heart rate,diarrhea, New onset AFib Chart reviewed. Case discussed with PMD/Nursing. Per neurology:Pt. with hx. of MG x1, stable on Mestinon 60mg tid since her last Myasthenic crisis in 02/04. She now presents with diarrhoea x 2 weeks. O2 sat-96% .She does not appear to be in a myasthenic crisis nor in a cholinergic crisis. Ms. Delacruz has new onset Afib, placed on diltiazem. The sob appears to be related to afib, she is thought not to be in cardiac failure as per cardiology. Speech/swallowing evaluation deferred per Dr. Abdullahi, as pt now on BIPAP. Pt NPO except for medication.
[2017-05-26] MEDS ORDERED: DIGOXIN 0.5 MG/2 ML AMPUL IVPUSH ONE (15:00)
[2017-05-26 16:54] LABS: TROPONIN I 0.06 ng/ml (0.00-0.05)
[2017-05-26] MEDS ORDERED: INSULIN (NOVOLOG) ASPART 100 UNITS/ML 10ML VIAL ONE (17:30)
[2017-05-26] MEDS ORDERED: ASPIRIN COATED 81 MG TABLET.EC PO ONE (18:16)
[2017-05-26 18:43] LABS: ARTERIAL BLD GAS O2 SATURATION 98.9 % (90-98.9); ARTERIAL BLOOD GAS BASE EXCESS 3.3 meq/l (-2-2); ARTERIAL BLOOD GAS HCO3 28.2 meq/L (22-26)
[2017-05-26 18:45] LABS: ALLENS TEST POSITIVE; ART PUNCT SITE RIGHT RADIAL; LPM/O2% 40; PT. ON O2? YES; TYPE OF O2 OTHER
[2017-05-26 18:46] LABS: VENT RATE 14
[2017-05-26] MEDS: DIGOXIN 0.5 MG/2 ML AMPUL IVPUSH SCH (21:10)
[2017-05-26 21:53] LABS: TROPONIN I 0.11 ng/ml (0.00-0.05)
[2017-05-26] MEDS ORDERED: ROSUVASTATIN CA 10 MG TABLET (FP) PO SCH (22:00)
--- NOTE | 2017-05-26 22:04 | CONSULT ---
Consult Consult Specialty:: PULM/CCM Referred by:: Dr. Marycruz Abdullahi Reason for Consultation:: HYPERCARBIC RESP INSUFF - History of Present Illness Chief Complaint: Lethargy History of Present Illness: Ms. Delacruz is an 86 y/o woman w/ Myesthenia gravis pt of Dr. Urrutia @ [facility] [Hx/o acute exacerb/o myasthenia gravis (last time was in August 2016 & it started w/ difficulty swallowing], HTN, DM, & HLD who originally presented to [facility] ER on Sunday 05/20 c/o fever/chills, abd pain , & N/V/D x 2 wks [employer]. The pt was wrkd up & D/c'ed --> home w/ Cipro for a UTI. Of note, the Cipro was later changed to amoxicillin/clavulinate (as Cipro is contraindicated in myasthenia gravis). The pt re-presents here to [facility] ED on 05/24 c/o of same. The pt denies sick contacts, recent travel, constipation, chest pain, SOB, chest tightness, or blood in stool. Initially, the pt was convalescing well on the floor. Soon the pt was noticed to be lethargic and the pt was moved to tele w/ c/f exacerb/o Myesthenia gravis. ABG = 7.15//97 on NC and so this PULM Consult was initiated. - History Source History Provided By: Patient, Family Member, Medical Record Limitations to Obtaining History: Physical Impairment - Past Medical History TOUCH UP CARVER: Yes: Other (MG) Cardio/Vascular: Yes: HTN Pulmonary: Yes: Other (MG) Hepatobiliary: No: Cirrhosis Renal/: Yes: UTI. No: Hematuria Heme/Onc: No: Cancer Psych: No: Addictions Musculoskeletal: Yes: Other (MG) Endocrine: Yes: Diabetes Mellitus - Smoking History Smoking history: Never smoked - Social History History of Recent Travel: No Home Medications - Allergies Allergies/Adverse Reactions: Allergies Allergy/AdvReac Type Severity Reaction Status Date / Time No Known Allergies Allergy Verified 05/24/17 12:13 - Home Medications Home Medications: Ambulatory Orders Amlodipine Besylate/Benazepril [Lotrel 10-20 mg Capsule] 1 cap PO BID 05/24/17 Amoxicillin/Potassium Clav [Augmentin 875-125 Tablet] 1 each PO DAILY 05/24/17 Fluoxetine HCl 10 mg PO DAILY 05/24/17 Hydralazine HCl 10 mg PO BID 05/24/17 Metformin HCl [Glucophage] 500 mg PO BID 05/24/17 Pantoprazole Sodium 40 mg PO DAILY 05/24/17 Potassium Chloride 10 meq PO DAILY 05/24/17 Pyridostigmine [Mestinon] 60 mg PO TID 05/24/17 Rosuvastatin [Crestor -] 10 mg PO DAILY 05/24/17 Family Disease History - Family Disease History Family History: Unremarkable Review of Systems - Review of Systems Constitutional: reports: Chills, Fever, Lethargy, Malaise, Weakness Eyes: reports: No Symptoms HENT: reports: No Symptoms Neck: reports: No Symptoms Cardiovascular: reports: No Symptoms Respiratory: reports: SOB on Exertion Gastrointestinal: reports: Dysphagia Genitourinary: reports: No Symptoms Breasts: reports: No Symptoms Reported Musculoskeletal: reports: Muscle Weakness Integumentary: reports: No Symptoms Neurological: reports: Weakness Endocrine: reports: No Symptoms Hematology/Lymphatic: reports: No Symptoms Psychiatric: reports: No Symptoms Pain Intensity: 0 Physical Exam Vital Signs: Vital Signs Temperature 98 F 05/26/17 19:00 Pulse Rate 69 05/26/17 21:10 Respiratory Rate 22 05/26/17 19:00 Blood Pressure 140/60 05/26/17 19:00 O2 Sat by Pulse Oximetry (%) 100 05/26/17 19:47 Constitutional: Yes: Well Nourished, No Distress, Calm Eyes: Yes: WNL, Conjunctiva Clear, EOM Intact HENT: Yes: WNL, Atraumatic, Normocephalic Neck: Yes: WNL, Supple, Trachea Midline Cardiovascular: Yes: WNL, Pulse Irregular, Murmur Respiratory: Yes: WNL, Regular, CTA Bilaterally, Diminished, Dullness Gastrointestinal: Yes: Hypoactive Bowel Sounds ...Rectal Exam: Yes: Deferred Renal/: Yes: WNL Breast(s): Yes: WNL Musculoskeletal: Yes: WNL Extremities: Yes: WNL Edema: No Peripheral Pulses WNL: Yes Neurological: Yes: WNL, Alert, Oriented ...Motor Strength: WNL Psychiatric: Yes: WNL, Alert, Oriented Labs: CBC, BMP 05/26/17 10:35 05/26/17 10:35 Imaging - Results X-ray: Image Reviewed (05/26: Poor Inspiration, otherwise clear (MY READ).) EKG: Image Reviewed (05/26: RSR in the 60's w/o ectopy, flipped T's in I, II, aVL , V5, & V6, qu'ed out in III, poor R-wave progression, LVH, QTc = 416ms, no acute processes (MY READ).) Problem List - Problems (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 PLAN: -Start Mestinon 60mg PO TID -Bi-Level 04/25 40% -Re-check ABG -Check FEV1 -Check NIFs -Start Steroids a/p NIFs -Consider IVIG -Dig for A-Fib w/ RVR NOT Cardizem -TTE -Statin -Gentle Diuresis -D/c Amox -S & S -NEURO consult -SQH -PPI -PULM will Follow Thank you for this interesting Consult RIGO MACIAS-BC [id number] PULM / CCM
[2017-05-27] MEDS: DIGOXIN 0.5 MG/2 ML AMPUL IVPUSH SCH ×2 (02:29→09:27)
[2017-05-27] MEDS: INSULIN SLIDING SCALE (NOVOLOG) 1 VIAL SQ SCH ×2 (02:45→18:34)
[2017-05-27 06:19] LABS: MCH 29.8 pg (25.7-33.7); MCHC 32.7 g/dl (32.0-36.0); MEAN CELL VOLUME 91.2 fl (80-96); MEAN PLT VOLUME 9.6 fl (7.5-11.1); PLATELET COUNT 274 K/MM3 (134-434); RDW 13.3 % (11.6-15.6); WHITE BLOOD COUNT 20.3 K/mm3 (4.0-10.0)
[2017-05-27] MEDS: PYRIDOSTIGMINE BROMIDE 60 MG TABLET PO SCH ×3 (06:27→21:15)
[2017-05-27 07:34] LABS: ANION GAP 14 (8-16); CALCIUM 9.1 mg/dL (8.5-10.1); CO2 25 mmol/L (21-32); CREATININE 1.2 mg/dL (0.55-1.02); GLUCOSE,RANDOM 121 mg/dL (74-106); MAGNESIUM 1.8 mg/dL (1.8-2.4); PHOSPHOROUS 2.3 mg/dL (2.5-4.9)
[2017-05-27 07:50] LABS: TROPONIN I 0.11 ng/ml (0.00-0.05)
[2017-05-27] MEDS ORDERED: NAPH,MB-DB/K PH,MBDB POWDER PACKET PO ONE (09:00)
[2017-05-27 09:03] LABS: PLATELET ESTIMATE ADEQUATE (NORMAL); TOTAL CELLS COUNTED 100
[2017-05-27] MEDS ORDERED: PROMETHAZINE HCL 25 MG/1 ML VIAL IVPB PRN ×2 (10:00→14:11)
[2017-05-27] MEDS: HEPARIN - 25,000 UNIT in SODIUM CHLORIDE 495 ML IV SCH (10:34)
--- NOTE | 2017-05-27 10:43 | PN ---
Progress Note, Physician History of Present Illness: pulmonary alert on bipap,-resp distress,+nausea,diarrhea - Current Medication List Current Medications: Active Medications Digoxin (Lanoxin Injection -) 0.25 mg IVPUSH Q6H-IV THANH Last Admin: 05/27/17 09:27 Dose: 0.25 mg Fluoxetine HCl (Prozac -) 10 mg PO DAILY THANH Heparin Sodium (Porcine) (Heparin -) 1,000 unit IVPUSH PRN PRN PRN Reason: Heparin Heparin Sodium (Porcine) (Heparin -) 3,500 unit IVPUSH PRN PRN PRN Reason: Heparin Heparin Sodium (Porcine) 25, (000 unit/ Sodium Chloride) 500 mls @ 16 mls/hr IV TITR THANH; 800 UNIT/HR PRN Reason: Protocol Last Titration: 05/26/17 19:15 Dose: 700 unit/hr Diltiazem HCl 125 mg/ Dextrose 125 mls @ 5 mls/hr IVPB TITR THANH; 5 MG/HR PRN Reason: Protocol Last Titration: 05/26/17 18:00 Dose: 0 mg/hr Insulin Aspart (Novolog Vial Sliding Scale -) 1 vial SQ Q6HPO THANH PRN Reason: Protocol Promethazine HCl (Phenergan Injection -) 12.5 mg IVPB Q6H PRN PRN Reason: NAUSEA AND/OR VOMITING Last Admin: 05/27/17 10:29 Dose: 12.5 mg Pyridostigmine [place] (Mestinon -) 60 mg PO TID [facility] Last Admin: 05/27/17 06:27 Dose: 60 mg Rosuvastatin Calcium (Crestor -) 10 mg PO HS [facility] Last Admin: 05/26/17 22:05 Dose: 10 mg - Objective Vital Signs: Vital Signs Temperature 98.8 F 05/27/17 10:25 Pulse Rate 60 05/27/17 10:25 Respiratory Rate 20 05/27/17 10:25 Blood Pressure 137/57 05/27/17 10:25 O2 Sat by Pulse Oximetry (%) 98 05/27/17 10:23 Constitutional: Yes: Calm, Thin Eyes: Yes: WNL HENT: Yes: WNL Neck: Yes: WNL Cardiovascular: Yes: Pulse Irregular, S1, S2 Respiratory: Yes: Diminished Gastrointestinal: Yes: Normal Bowel Sounds, Soft Extremities: Yes: WNL Edema: No Labs: CBC, BMP 05/27/17 06:10 05/27/17 06:10 INR, PTT INR 0.88 (0.82-1.09) 05/26/17 10:35 Assessment/Plan Problem List - Problems (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 - CONGENITAL AND DEVELOPMENTAL MYASTHENIA (2) Diarrhea Code(s): R19.7 - DIARRHEA, UNSPECIFIED Qualifiers: Diarrhea type: unspecified type Qualified Code(s): R19.7 - Diarrhea, unspecified; R19.7 - Diarrhea, unspecified Assessment/Plan Acute hypecapneic respiratory failure secondary to Myasthenia gravis improving Myesthenia gravis exacerbation likely secondary to viral illness Afib HTN DM, HLD PLAN: - Mestinon 60mg PO TID - continue Bi-Level 04/25 40% -f/u ABG -monitor FEV1,NIFs,VC -Start Steroids a/p NIFs -Consider IVIG -Dig for A-Fib w/ RVR NOT Cardizem -TTE -Statin -Gentle Diuresis -D/c Amox -S & S -SQH -PPI DR SCOTT
[2017-05-27 10:49] LABS: ARTERIAL BLD GAS O2 SATURATION 98.3 % (90-98.9); ARTERIAL BLOOD GAS BASE EXCESS -1.7 meq/l (-2-2); ARTERIAL BLOOD GAS pH 7.37 (7.35-7.45)
[2017-05-27 10:51] LABS: ALLENS TEST POSITIVE; ART PUNCT SITE RIGHT RADIAL; LPM/O2% 40%; PT. ON O2? YES; TYPE OF O2 BIPAP
[2017-05-27 10:52] LABS: VENT RATE 14
[2017-05-27] MEDS ORDERED: INSULIN SLIDING SCALE (NOVOLOG) 1 VIAL SQ SCH (12:00)
--- NOTE | 2017-05-27 12:42 | PN ---
Teaching Attending Note Name of Resident: Addie Caro ATTENDING PHYSICIAN STATEMENT I saw and evaluated the patient. I reviewed the resident's note and discussed the case with the resident. I agree with the resident's findings and plan as documented. SUBJECTIVE: Feels better , slightly nauseous . no abd pain. has no SOB , and no fever has palpitations OBJECTIVE: NAD ,awake , alert and cooperative. BIPAP mask on CV: irreg irreg , 3/6 SM at base and LLSB,also heard fainter in apex. no radiation to carotids Lungs: CTAB , decreased breath sounds at bases . improved air entry comopared to yesterday's evening Abd: soft, NT, ND, NL BS Ext: trace edema . DP 2+ b/l Assessment/Plan: 86 y/o lady with h/o HTN, DM , recent diagnosis of MG, and hyperlipidemia who presented with difficulty swallowing and SOB . Now with irregular heart rate 1- New onset AFib: responded to cardizem gtt then digoxin load. Hr is still above gall . had evidence of heart failure - will avoid continuation of digoxin due to age and renal function . - acvoid cardizem due to MG - will start po metoprolol 25 BID , might increase to TID. per my research, no effect on MG. Ok to use per dr. Simons - [id number] sore of 5, cont heparin gtrt - Echo pendinmg - Check TSH - follow cx 2- Acute heart failure : likely systolic in the setting of RVR. Lung exam is much better. received 20 of IV lasix yesterday. Cr increased. BNP elevated compared to before. - Echo - hold off diuresis today and follow renal function, if it worsens despite holding diuresis , will start lasix again 3- elevated trop: with new TWI in lateral leads. was tachy yesterday , possinle demand . trop with slight bump and stable now - repeat trop - repeat EKG with stable TWI - on heparin gtt any way. - Furhter Recs per card 4-ACute hypoxic hypercapnic resp failure could be due to CHF vs MG crisis. - cont BIPAP . - ABG with improved PH and CO2 - treat undelying condition 5- h/o MG , not clear if Crisis . - Await NIF and FEV1 - cont pyridostigmin - Furhter Recs per Neuro 6- HTN: hold off home meds pending control in her HR 7- leukocytosis : has a recent UTI which was partially treated. - check c diff - follow urine cx. - repeat CBC this evening. if increase will start ceftriaxon - send blood cx 8- HLOC . declined for ICU
[2017-05-27] MEDS ORDERED: INSULIN REGULAR HUMAN 100 UNITS/ML *VIAL SQ SCH (14:00)
[2017-05-27 14:03] LABS: MCH 29.1 pg (25.7-33.7); MCHC 32.2 g/dl (32.0-36.0); MEAN CELL VOLUME 90.4 fl (80-96); PLATELET COUNT 241 K/MM3 (134-434); RDW 13.1 % (11.6-15.6); WHITE BLOOD COUNT 23.8 K/mm3 (4.0-10.0)
[2017-05-27] MEDS ORDERED: PT OWN MED DRAWER 7, Y5N ONE (14:31)
[2017-05-27] MEDS: METOPROLOL TARTRATE 25 MG TABLET (FP) PO SCH ×2 (14:33→21:36)
[2017-05-27] MEDS: FLUoxetine HCL 10 MG CAPSULE (FP) PO SCH (14:33)
[2017-05-27 14:57] LABS: TROPONIN I 0.5 ng/ml (0.00-0.05)
[2017-05-27] MEDS ORDERED: METRONIDAZOLE 500 MG PREMIXED 100 ML IVPB SCH (15:00)
--- NOTE | 2017-05-27 16:03 | PN ---
Physical Exam: SUBJECTIVE: Patient seen and examined. Pt denies fever, chills, sob, abdominal pain. Pt with new onset afib overnight. OBJECTIVE: Vital Signs Period Temp Pulse Resp BP Sys/Coulter Pulse Ox Last 24 Hr 97.6 F-99.8 F 60-120 20-26 121-177/48-77 98-100 GENERAL: The patient is awake, alert, and fully oriented, in no acute distress. Bipap mask in place. HEAD: Normal with no signs of trauma. EYES: PERRL, extraocular movements intact, sclera anicteric, conjunctiva clear. No ptosis. NECK: Trachea midline, supple. LUNGS: Breath sounds equal, clear to auscultation bilaterally, no wheezes, no crackles, no accessory muscle use. HEART: irregularly irregular, 3/6 systolic murmur heard best at Left lower sternal border. ABDOMEN: Soft, nontender, nondistended, normoactive bowel sounds. EXTREMITIES: Warm, well-perfused, no edema. PSYCH: Normal mood, normal affect. SKIN: Warm, dry, normal turgor, no rashes or lesions noted Laboratory Results - last 24 hr 05/26/17 05/26/17 05/26/17 10:44 16:00 16:48 WBC RBC Hgb Hct MCV MCH MCHC RDW Plt Count MPV Total Counted Neutrophils % Neutrophils % (Manual) Lymphocytes % Lymphocytes % (Manual) Monocytes % (Manual) Platelet Estimate PTT (Actin FS) 89.4 H Puncture Site ABG pH ABG pCO2 at Pt Temp ABG pO2 at Pt Temp ABG HCO3 ABG O2 Sat (Measured) ABG O2 Content ABG Base Excess Vasyl Test O2 Delivery Device Oxygen Flow Rate Vent Mode Vent Rate Mechanical Rate PEEP Pressure Support Vent Sodium Potassium Chloride Carbon Dioxide Anion Gap BUN Creatinine POC Glucometer 192.66862 Random Glucose Calcium Phosphorus Magnesium Creatine Kinase 73 Troponin I 0.06 H B-Natriuretic Peptide TSH 05/26/17 05/26/17 05/26/17 16:52 17:14 21:10 WBC RBC Hgb Hct MCV MCH MCHC RDW Plt Count MPV Total Counted Neutrophils % Neutrophils % (Manual) Lymphocytes % Lymphocytes % (Manual) Monocytes % (Manual) Platelet Estimate PTT (Actin FS) Puncture Site Right radial ABG pH 7.40 D ABG pCO2 at Pt Temp 46.5 H D ABG pO2 at Pt Temp 106.0 H ABG HCO3 28.2 H ABG O2 Sat (Measured) 98.9 ABG O2 Content 17.5 ABG Base Excess 3.3 H Vasyl Test Positive O2 Delivery Device Other Oxygen Flow Rate 40 Vent Mode S/t Vent Rate 14 Mechanical Rate B. pap PEEP 0.0 Pressure Support Vent 10/5 Sodium Potassium Chloride Carbon Dioxide Anion Gap BUN Creatinine POC Glucometer 204.43368 Random Glucose Calcium Phosphorus Magnesium Creatine Kinase 55 Troponin I 0.11 H B-Natriuretic Peptide TSH 05/27/17 05/27/17 05/27/17 01:00 06:10 06:10 WBC 20.3 H D RBC 4.29 Hgb 12.8 Hct 39.1 MCV 91.2 MCH 29.8 MCHC 32.7 RDW 13.3 Plt Count 274 D MPV 9.6 D Total Counted 100 Neutrophils % No Result Required. Neutrophils % (Manual) 79 Lymphocytes % No Result Required. Lymphocytes % (Manual) 15 Monocytes % (Manual) 6 Platelet Estimate Adequate PTT (Actin FS) 62.0 H D Puncture Site ABG pH ABG pCO2 at Pt Temp ABG pO2 at Pt Temp ABG HCO3 ABG O2 Sat (Measured) ABG O2 Content ABG Base Excess Vasyl Test O2 Delivery Device Oxygen Flow Rate Vent Mode Vent Rate Mechanical Rate PEEP Pressure Support Vent Sodium 145 Potassium 3.7 Chloride 106 Carbon Dioxide 25 Anion Gap 14 BUN 20 H D Creatinine 1.2 H D POC Glucometer Random Glucose 121 H D Calcium 9.1 Phosphorus 2.3 L D Magnesium 1.8 Creatine Kinase Troponin I B-Natriuretic Peptide TSH 05/27/17 05/27/17 05/27/17 06:10 09:45 09:45 WBC RBC Hgb Hct MCV MCH MCHC RDW Plt Count MPV Total Counted Neutrophils % Neutrophils % (Manual) Lymphocytes % Lymphocytes % (Manual) Monocytes % (Manual) Platelet Estimate PTT (Actin FS) Puncture Site ABG pH ABG pCO2 at Pt Temp ABG pO2 at Pt Temp ABG HCO3 ABG O2 Sat (Measured) ABG O2 Content ABG Base Excess Vasyl Test O2 Delivery Device Oxygen Flow Rate Vent Mode Vent Rate Mechanical Rate PEEP Pressure Support Vent Sodium Potassium Chloride Carbon Dioxide Anion Gap BUN Creatinine POC Glucometer Random Glucose Calcium Phosphorus Magnesium Creatine Kinase 62 Troponin I 0.11 H B-Natriuretic Peptide 1445.67 H TSH 1.23 05/27/17 05/27/17 05/27/17 09:48 13:45 13:45 WBC 23.8 H RBC 4.43 Hgb 12.9 Hct 40.1 MCV 90.4 MCH 29.1 MCHC 32.2 RDW 13.1 Plt Count 241 MPV 9.0 Total Counted Neutrophils % Neutrophils % (Manual) Lymphocytes % Lymphocytes % (Manual) Monocytes % (Manual) Platelet Estimate PTT (Actin FS) Puncture Site Right radial ABG pH 7.37 ABG pCO2 at Pt Temp 41.1 ABG pO2 at Pt Temp 100.0 ABG HCO3 23.0 ABG O2 Sat (Measured) 98.3 ABG O2 Content 17.6 ABG Base Excess -1.7 Vasyl Test Positive O2 Delivery Device Bipap Oxygen Flow Rate 40% Vent Mode S/i Vent Rate 14 Mechanical Rate PEEP Pressure Support Vent 10/5 Sodium Potassium Chloride Carbon Dioxide Anion Gap BUN Creatinine POC Glucometer Random Glucose Calcium Phosphorus Magnesium Creatine Kinase 90 Troponin I 0.50 H B-Natriuretic Peptide TSH Active Medications Generic Name Dose Route Start Last Admin Trade Name Amy PRN Reason Stop Dose Admin Fluoxetine HCl 10 mg 05/27/17 10:00 05/27/17 14:33 Prozac - PO 10 mg DAILY THANH Administration Heparin Sodium (Porcine) 1,000 unit 05/26/17 10:04 Heparin - IVPUSH PRN PRN Heparin Heparin Sodium (Porcine) 3,500 unit 05/26/17 10:30 Heparin - IVPUSH PRN PRN Heparin Heparin Sodium (Porcine) 25, 500 mls @ 16 mls/hr 05/26/17 11:30 05/27/17 10:34 000 unit/ Sodium Chloride IV 14 mls/hr TITR THANH Administration Protocol 800 UNIT/HR CEFTRIAXONE 1 G/50 ML PREMIX 50 mls @ 100 mls/hr 05/27/17 15:00 Ceftriaxone 1 Gm-D5w Bag IVPB DAILY THANH Metronidazole 100 mls @ 100 mls/hr 05/27/17 15:00 Flagyl 500mg Premixed Ivpb - IVPB Q8H-IV THANH Insulin Aspart 1 vial 05/27/17 18:00 Novolog Vial Sliding Scale - SQ Q6HPO THANH Protocol Metoprolol Tartrate 25 mg 05/27/17 13:00 05/27/17 14:33 Lopressor - PO 25 mg BID THANH Administration Pyridostigmine [place] 60 mg 05/26/17 14:00 05/27/17 14:34 Mestinon - PO 60 mg TID THANH Administration Rosuvastatin Calcium 10 mg 05/26/17 22:00 05/26/17 22:05 Crestor - PO 10 mg HS THANH Administration ASSESSMENT/PLAN: 86yo F with PMH of myesthenia gravis, DM, htn, hld, presents with diarrhea x 2 weeks, found to have new onset afib. 1) new onset afib - pt received loading dose of Digoxin, now 0.125mg po daily ordered - heart rate now controlled - avoid Cardizem 2/2 myesthenia gravis - Metoprolol 25mg po BID added -> can increase to TID if needed - [id number] score: 6 - continue Heparin drip - TSH wnl - Cardiology following 2) acute heart failure, in the setting of afib with RVR - f/u echo - consider Lasix depending on renal function - elevated bnp noted 3) hypoxic hypercapnic respiratory failure - continue bipap prn - ABG reveals improved CO2 and bicarb 4) hypertroponinemia - possibly 2/2 demand ischemia related to tachycardia yesterday - trop trending up, 0.5 most recently up from 0.11 - continue to monitor 5) Myesthenia Gravis - continue Pyridostigmine - Neurology following - f/u NIF and FEV1 to assess if MG Crisis 6) leukocytosis - trending up - known recent partially treated UTI, although UA (-) here - stool cultures, c-diff, urine culture all (-) - f/u blood culture - Cetriaxone 1g IVPB daily initiated - Flagyl 500mg IVPB daily initiated 7) htn - consider continuing home med of Norvasc - continue to monitor 8) hld - continue Crestor 9) DM - Novolog SSI - BGMs 10) hypophosphatemia - repleted with Phos-NaK 1 packet po - continue to monitor 11) FEN - Fluids: D5W @ 83 ml/hr - Electrolytes: hypomagnesemia resolved, hypophosphatemia noted, continue to monitor - Nutrition: pending Speech Eval 12) DVT prophylaxis - Heparin drip Pt is DNR. Visit type - Emergency Visit Emergency Visit: Yes ED Registration Date: 05/24/17 Care time: The patient presented to the Emergency Department on the above date and was hospitalized for further evaluation of their emergent condition. - New Patient This patient is new to me today: Yes Date on this admission: 05/27/17 - Critical Care Critical Care patient: No
[2017-05-27] MEDS ORDERED: amLODIPine BESYLATE 10 MG TABLET (FP) PO ONE (16:49)
--- NOTE | 2017-05-27 17:44 | CONSULT ---
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 No: Hematuria Heme/Onc: No: Cancer Psych: No: Addictions Musculoskeletal: Yes: Other (MG) Endocrine: Yes: Diabetes Mellitus - Smoking History Smoking history: Never smoked - Social History History of Recent Travel: No History - Admission Reason For Visit: SOB, DIARRHEA, HYPOKALEMIA - Hearing Hearing: Normal Hearing Aide: No Speech Evaluation - Communication Communication: Yes: Within Normal Limits Oral Expression Ability: Yes: No Impairment - Speech Production Apraxia: No Able to Make Needs Known: Yes: WNL Intelligibility: Yes: WNL - Speech Characteristics Voice Loudness: Normal Voice Pitch: Yes: Normal Voice Phonatory-based Quality: Yes: Tremor Speech Pattern: Normal Nasal Resonance: Normal Articulation: Yes: Precise Dysfluency: Yes: Tonic Rate of Speech: Intact - Language/Auditory Comprehension Follows: Yes: 1 Stage Simple Commands, 2 Stage Simple Commands Observation: Able to respond to yes/no queries: Yes, Yes/No Confusion: No, Comprehends Conversational Speech: Yes, Benefits from Slow Speech: No, Benefits from Repetiton: No - Language/Verbal Expression Able to Respond to Simple Queries: Yes: WNL Able to Communicate Wants and Needs: Yes: WNL Functional Communication Status: Yes: WNL Aware of Errors: Yes Attempts to Correct Errors: Yes Use of Gestures: No Written Expression: Not examined Oral Expression: WFL Reading Comprehension: Not examined Calculations: Not examined Attention: Yes: Intact - Memory/Perception skilled nursing Memory: Yes: Mildly Impaired Short Term Memory: Yes: WNL - Swallow Evaluation/Bedside Assessment Current Nutritional Intake: NPO Oral Secretions: Yes: WFL Tracheostomy Present: No Patient on Ventilator: Yes Dentition: Yes: Adequate (condition:fair but within functional limits for speech and swallowing.) Facial Symmetry at Rest: Symmetrical Facial Symmetry on Retraction: Symmetrical Facial Movement: Controlled Sensation: Normal Facial Comment: QFL for speech and swallowing purposes. Pucker Lips: Normal Smile: Normal Lips, Comment: QFL for speech and swallowing purposes. Lingual Movement: Normal Lingual Speed of Movement: Normal Lingual Movement Strgth Against Opposition: Normal Lingual Movement Characteristics: Normal Lingual Comment: QFL for speech and swallowing purposes. Soft Palate Description: Normal Color Hard Palate Description: Normal Color Gag Reflex: Strong Bite Reflex: Present Velopharyngeal Movement: Normal Laryngeal Elevation: WFL Laryngeal Movement: Able to Palpate Needs Assistance: Yes Rate of Intake: WFL Bolus Size: WFL Labial Seal: WFL Chewing: WFL Oral Prep Time: WFL A-P Transit: WFL Timing of Swallow: WFL Coughing/Throat Clear: No Change in Voice: No Other Findings/Remarks: 86 yo female seen at bedside for swallow eval to r/o dysphagia. Pt is verbal, A &Ox3 cooperative. Pt presents with new onset A-fib and SOB, respiratory distress. Currently on BIPAP. PMHX includes Myesthenia Gravis, HTN,HLD,and DM. Adequate vocal quality and airway protection. Pt given po trials of puree with assistance revealed good acceptance, adequate bolus control and transport. Pharyngeal swallow appears timely with no cough or changes in voicing. Pt given po trials of thicken and thin liquids via cup with assistance revealed good acceptance, adequate bolus containment and transport. Pharyngeal swallow appears timely with occasional weak cough with thin liquids or changes in voicing. Recommendations - Speech Evaluation, Impression/Plan Impression: 86 yo female is able to tolerate purees and nectar thicken without s /s of aspiration at this time. Thin liquid trials via cup reveal occassional cough after pharyngeal swallow. Cover Seamer Goals: tolerate the least restrictive diet without s/s of aspiration. Short Term Goals: tolerate purees and nectar thicken liquids without s/s of aspiration. - Dysphagia Impressions/Plan Swallowing Skills: Impaired (secondary to cough with thin liquids.) Dysphagia Impressions: Mild Impairment, Risk of Aspiration *Silent aspiration: cannot be R/O at bedside Dysphagia Treatment Plan: Small Bites, Safe Rate, 1/2 tsp. at a time, Elevate HOB during feed Dysphagia Evaluation Summary: Trial purees, nectar thicken liquids and small ice chips for hydration as tolerated. Observe standard aspiration precautions. Crush meds in purees or applesauce. Results given verbally to extension service specialist in charge Beena and to pcp via chart. K 9 HANDLER/ DEPUTY to follow up for diet tolerance and possible upgrade if warranted. - Recommendations Diet Consistency: Dysphagia Pureed Medication Administration: Crushed with applesauce Liquids: [place] Thick
--- NOTE | 2017-05-27 17:55 | PN ---
Progress Note, Physician Chief Complaint: Patient is with BiPAP. She complains of weakness and fatigue. No palpitation or chest pain. No SOB while on BiPAP. Tele shows atrial fibrillation with improved VR control. History of Present Illness: 86 year old woman with a PMHx of myasthenia gravis, MDD, HTN, and hyperlipidemia presented with diarrhea for 2 weeks with weight loss. Reports adrenal mass on ct abd in past. Was transferred to MICU for dyspnea and myasthenia. Noted to be in new afib with RVR. No chest pain or palpitations but dyspnea worsening after receiving diltiazem. She received digoxin IV loading and metoprolol. VR control improved. Her troponin is trending up, likely secondary to demand ischemia. Echocardiogram 05/27/2017: Normal LV systolic function. No regional wall motion abnormalities. Normal RV. No significant valvular abnormalities. - Current Medication List Current Medications: Active Medications Amlodipine Besylate (Norvasc -) 10 mg PO DAILY [facility] Digoxin (Lanoxin -) 0.125 mg PO DAILY [facility] Fluoxetine HCl (Prozac -) 10 mg PO DAILY [facility] Last Admin: 05/27/17 14:33 Dose: 10 mg Heparin Sodium (Porcine) (Heparin -) 1,000 unit IVPUSH PRN PRN PRN Reason: Heparin Heparin Sodium (Porcine) (Heparin -) 3,500 unit IVPUSH PRN PRN PRN Reason: Heparin Heparin Sodium (Porcine) 25, (000 unit/ Sodium Chloride) 500 mls @ 16 mls/hr IV TITR THANH; 800 UNIT/HR PRN Reason: Protocol Last Admin: 05/27/17 10:34 Dose: 14 mls/hr CEFTRIAXONE 1 G/50 ML PREMIX (Ceftriaxone 1 Gm-D5w Bag) 50 mls @ 100 mls/hr IVPB DAILY [facility] Insulin Aspart (Novolog Vial Sliding Scale -) 1 vial SQ Q6HPO [facility] PRN Reason: Protocol Metoprolol Tartrate (Lopressor -) 25 mg PO BID [facility] Last Admin: 05/27/17 14:33 Dose: 25 mg Pyridostigmine [place] (Mestinon -) 60 mg PO TID [facility] Last Admin: 05/27/17 14:34 Dose: 60 mg Rosuvastatin Calcium (Crestor -) 10 mg PO HS [facility] Last Admin: 05/26/17 22:05 Dose: 10 mg - Objective Vital Signs: Vital Signs Temperature 98.6 F 05/27/17 14:00 Pulse Rate 75 05/27/17 14:00 Respiratory Rate 20 05/27/17 14:00 Blood Pressure 177/48 05/27/17 14:00 O2 Sat by Pulse Oximetry (%) 98 05/27/17 10:23 Constitutional: Yes: Calm, Mild Distress Eyes: Yes: Conjunctiva Clear, EOM Intact HENT: Yes: Atraumatic, Normocephalic Neck: Yes: Supple, Trachea Midline Cardiovascular: Yes: Tachycardia, Pulse Irregular Respiratory: Yes: Regular, Rales Gastrointestinal: Yes: Normal Bowel Sounds, Soft ...Rectal Exam: Yes: Deferred Genitourinary: Yes: WNL Musculoskeletal: Yes: Muscle Weakness Extremities: Yes: WNL Edema: No Peripheral Pulses WNL: Yes Labs: CBC, BMP 05/27/17 13:45 05/27/17 06:10 INR, PTT INR 0.88 (0.82-1.09) 05/26/17 10:35 Assessment/Plan 86 year old woman with a PMHx of myasthenia gravis, MDD, HTN, and hyperlipidemia presented with diarrhea for 2 weeks with weight loss. Reports adrenal mass on ct abd in past. Was transferred to MICU for dyspnea and myasthenia. Noted to be in new afib with RVR. No chest pain or palpitations but dyspnea worsening after receiving diltiazem. She received digoxin IV loading and metoprolol. VR control improved. Her troponin is trending up, likely secondary to demand ischemia. Echocardiogram 05/27/2017: Normal LV systolic function. No regional wall motion abnormalities. Normal RV. No significant valvular abnormalities. 1) Atrial fibrillation: VR control improved after digoxin IV loading. Continue oral digoxin 0.125 mg daily and metoprolol 25 mg BID for VR control. Consider AC with NOAC: Eliquis 5 mg BID for CVA prevention ([id number] Score = 3). Continue cardiac monitor. 2) NSTEMI: Troponin is trending up, likely secondary to demand ischemia. No regional wall motion abnormalities and preserved LV systolic function support the diagnosis. VR control as above.
[2017-05-27] MEDS: CEFTRIAXONE 1 G/50 ML PREMIX 50 ML IVPB SCH (18:24)
[2017-05-27] MEDS ORDERED: INSULIN (NOVOLOG) ASPART 100 UNITS/ML 10ML VIAL ONE (18:29)
--- NOTE | 2017-05-27 19:00 | PN ---
Progress Note (short form) - Note Progress Note: 86yo F with PMHx of Myasthenia Gravis (diagnosed 1 yr ago), HTN, HLD who presented w/ diarrhea for 2 weeks. Started off as soft, brown but has changed into a watery green consistency recently. Has had diarrhea in past, seen at [facility] in October 2016, and was given antibiotics (unable to remember name) and improved. 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 She denies abdominal pain, ever having abd pain. Denies intermittent constipation. No fevers, chills, sick contacts, dietary changes. Recently has been on antibiotics for UTI, but diarrhea started prior to abx usage. Denies melena or hematemesis. Denies travel. Diagnosed with almost 1 year ago. Has had 2 crises since then. FU : HX of MG dx 2015, Hx of IVIG last yr January 2016 --diplopia at that time ; now with difficult keeping her head up, SOB seen by neuro as outpt earlier in the week, --RX not adjusted, told to have UTI Diarhea +--was prior tob starting mestinon - History Source History Provided By: Patient, Family Member - Smoking History Smoking history: Never smoked Home Medications - Allergies Allergies/Adverse Reactions: Allergies Allergy/AdvReac Type Severity Reaction Status Date / Time No Known Allergies Allergy Verified 05/24/17 12:13 - Home Medications Home Medications: Ambulatory Orders Amlodipine Besylate/Benazepril [Lotrel 10-20 mg Capsule] 1 cap PO BID 05/24/17 Amoxicillin/Potassium Clav [Augmentin 875-125 Tablet] 1 each PO DAILY 05/24/17 Fluoxetine HCl 10 mg PO DAILY 05/24/17 Hydralazine HCl 10 mg PO BID 05/24/17 Metformin HCl [Glucophage] 500 mg PO BID 05/24/17 Pantoprazole Sodium 40 mg PO DAILY 05/24/17 Potassium Chloride 10 meq PO DAILY 05/24/17 Pyridostigmine [Mestinon] 60 mg PO TID 05/24/17 Rosuvastatin [Crestor -] 10 mg PO DAILY 05/24/17 Physical Exam-Neuro Vital Signs: Vital Signs Temperature 98.6 F 05/27/17 14:00 Pulse Rate 75 05/27/17 14:00 Respiratory Rate 20 05/27/17 14:00 Blood Pressure 177/48 05/27/17 14:00 O2 Sat by Pulse Oximetry (%) 98 05/27/17 10:23 Labs: CBCD WBC 23.8 K/mm3 (4.0-10.0) H 05/27/17 13:45 RBC 4.43 M/mm3 (3.60-5.2) 05/27/17 13:45 Hgb 12.9 GM/dL (10.7-15.3) 05/27/17 13:45 Hct 40.1 % (32.4-45.2) 05/27/17 13:45 MCV 90.4 fl (80-96) 05/27/17 13:45 MCHC 32.2 g/dl (32.0-36.0) 05/27/17 13:45 RDW 13.1 % (11.6-15.6) 05/27/17 13:45 Plt Count 241 K/MM3 (134-434) 05/27/17 13:45 MPV 9.0 fl (7.5-11.1) 05/27/17 13:45 CMP Sodium 145 mmol/L (136-145) 05/27/17 06:10 Potassium 3.7 mmol/L (3.5-5.1) 05/27/17 06:10 Chloride 106 mmol/L (98-107) 05/27/17 06:10 Carbon Dioxide 25 mmol/L (21-32) 05/27/17 06:10 Anion Gap 14 (8-16) 05/27/17 06:10 BUN 20 mg/dL (7-18) H D 05/27/17 06:10 Creatinine 1.2 mg/dL (0.55-1.02) H D 05/27/17 06:10 Creat Clearance w eGFR > 60 (>60) 05/24/17 13:12 Calcium 9.1 mg/dL (8.5-10.1) 05/27/17 06:10 Total Bilirubin 0.3 mg/dL (0.2-1.0) 05/24/17 13:12 AST 26 U/L (15-37) 05/24/17 13:12 ALT 26 U/L (12-78) 05/24/17 13:12 Alkaline Phosphatase 94 U/L (45-117) 05/24/17 13:12 Total Protein 6.5 g/dl (6.4-8.2) 05/24/17 13:12 Albumin 3.5 g/dl (3.4-5.0) 05/24/17 13:12 - Neuro Exam Level Of Consciousness: Yes: Alert, Oriented to Person, Oriented to Place, Oriented to Time Eyes: Yes: BEBE (Somewhat hypophonic) Dominant Hand: Right Mini Mental Exam: Awake, alert, follows all commands, Cranial Nerves II-XII Intact: slight dysconjugate gaze though EOMI, slight head drop, Gag: Present DTR's: 0 Left Achilles, 0 Right Achilles, 1+ Left Bicep, 1+ Right Bicep, 1+ Left Tricep, 1+ Right Tricep, 1+ Left Brachioradialis, 1+ Right Brachioradialis Babinski: Absent Response to light touch: Normal Response to pain prick: Normal Response to vibration: Normal Motor Strength: 5/5:weakness deltoid R >L 4/5 , TR R 4+/5, L 5/5, LE 5/5 Gait: Deferred Assessment/Plan Pt. with hx. of MG x1, stable on Mestinon 60mg tid since her last Myasthenic crisis in 02/04. She now presents with diarrhoea x 2 weeks-though she states may have started even bf being on mestinon new onset Afib appears to have MG exacerbation , more bulbar ; ? related to underlying infection start IVIG 2GM /KG total dose over 5 days (she has had this in past and done well) cont mestinon diarhea ? mestinon induced, check c dif etc can use BB drew if required for rate control ID [email or web address] --to review ABX that can be used relatively safer in MG check VQ/NIF q8 spoke to team Dr Simons
[2017-05-27 20:57] LABS: TROPONIN I 0.51 ng/ml (0.00-0.05)
[2017-05-27] MEDS: IMMUNE GLOBULIN (IgG) 20 GM VIAL IVPB SCH (21:16)
[2017-05-27] MEDS ORDERED: LORazepam 2 MG/ML SDV VIAL ONE (23:26)
--- NOTE | 2017-05-27 23:30 | PN ---
Progress Note (short form) - Note Progress Note: ID Consult dictated Leukocytosis R/O sepsis Myasthenia gravis Gastroenteritis Await cultures Continue ceftriaxone
[2017-05-28] MEDS: INSULIN SLIDING SCALE (NOVOLOG) 1 VIAL SQ SCH ×4 (04:34→17:45)
[2017-05-28] MEDS: PYRIDOSTIGMINE BROMIDE 60 MG TABLET PO SCH ×4 (05:47→22:16)
--- NOTE | 2017-05-28 07:29 | EKG ---
Test Reason : Blood Pressure : / mmHG Vent. Rate : 105 BPM Atrial Rate : 210 BPM P-R Int : 000 ms QRS Dur : 086 ms QT Int : 256 ms P-R-T Axes : -39 -08 251 degrees QTc Int : 338 ms UNCLEAR RHYTHM, POSSIBLE ATRIAL ARRHYTHMIA, POSSIBLE ECTOPIC LEFT VENTRICULAR HYPERTROPHY WITH REPOLARIZATION ABNORMALITY ABNORMAL ECG WHEN COMPARED WITH ECG OF 27-MAY-2017 05:13, POSSIBLE RHYTHM CHANGE CLINICAL CORRELATION IS RECOMMENDED Confirmed by FABIANO TREVIÑO, CLAYTON ([id number]) on 05/28/2017 7:29:06 AM Referred By: Confirmed By:CLAYTON MARIO MD
[2017-05-28 07:31] LABS: MCH 29.5 pg (25.7-33.7); MEAN CELL VOLUME 89.6 fl (80-96); MEAN PLT VOLUME 9.9 fl (7.5-11.1); PLATELET COUNT 227 K/MM3 (134-434); WHITE BLOOD COUNT 21.3 K/mm3 (4.0-10.0)
[2017-05-28 07:52] LABS: ART PUNCT SITE RIGHT BRACHIAL; ARTERIAL BLOOD GAS HCO3 29.2 meq/L (22-26); PT. ON O2? YES
[2017-05-28 07:53] LABS: LPM/O2% 3L; TYPE OF O2 NASAL 02
[2017-05-28 07:55] LABS: ANION GAP 8 (8-16); CALCIUM 8.4 mg/dL (8.5-10.1); CO2 30 mmol/L (21-32); CREATININE 0.7 mg/dL (0.55-1.02); GLUCOSE,RANDOM 124 mg/dL (74-106); MAGNESIUM 1.6 mg/dL (1.8-2.4); PHOSPHOROUS 1.8 mg/dL (2.5-4.9)
[2017-05-28] MEDS: HEPARIN - 25,000 UNIT in SODIUM CHLORIDE 495 ML IV SCH ×2 (08:54→17:47)
[2017-05-28] MEDS: CEFTRIAXONE 1 G/50 ML PREMIX 50 ML IVPB SCH (09:14)
--- NOTE | 2017-05-28 09:14 | EKG ---
Test Reason : Blood Pressure : / mmHG Vent. Rate : 083 BPM Atrial Rate : 083 BPM P-R Int : 146 ms QRS Dur : 088 ms QT Int : 400 ms P-R-T Axes : 025 006 087 degrees QTc Int : 470 ms NORMAL SINUS RHYTHM MODERATE VOLTAGE CRITERIA FOR LVH, MAY BE NORMAL VARIANT NONSPECIFIC ST AND T WAVE ABNORMALITY PROLONGED QT ABNORMAL ECG NO PREVIOUS ECGS AVAILABLE Confirmed by CHARLOTTE TREVIÑO, ([id number]) on 05/28/2017 9:14:34 AM Referred By: Confirmed By:SARA PORTER MD
[2017-05-28] MEDS ORDERED: MAGNESIUM SULF 50% (8.12 MEQ/2 ML-1 GM VIAL) IVPB ONE (09:15)
--- NOTE | 2017-05-28 09:22 | PN ---
Progress Note, Physician History of Present Illness: Await, alert C/O loose stool. Staff reports soft stools Afebrile WBC remains elevated Cultures pending - Current Medication List Current Medications: Active Medications Amlodipine Besylate (Norvasc -) 10 mg PO DAILY [facility] Digoxin (Lanoxin -) 0.125 mg PO DAILY [facility] Fluoxetine HCl (Prozac -) 10 mg PO DAILY [facility] Last Admin: 05/27/17 14:33 Dose: 10 mg Heparin Sodium (Porcine) (Heparin -) 1,000 unit IVPUSH PRN PRN PRN Reason: Heparin Last Admin: 05/28/17 09:15 Dose: 1,000 unit Heparin Sodium (Porcine) (Heparin -) 3,500 unit IVPUSH PRN PRN PRN Reason: Heparin Heparin Sodium (Porcine) 25, (000 unit/ Sodium Chloride) 500 mls @ 16 mls/hr IV TITR THANH; 800 UNIT/HR PRN Reason: Protocol Last Admin: 05/28/17 08:54 Dose: 16 mls/hr CEFTRIAXONE 1 G/50 ML PREMIX (Ceftriaxone 1 Gm-D5w Bag) 50 mls @ 100 mls/hr IVPB DAILY [facility] Last Admin: 05/28/17 09:14 Dose: 100 mls/hr Potassium Phosphate 30 mm/ (Sodium Chloride) 510 mls @ 85 mls/hr IVPB ONCE ONE Stop: 05/28/17 15:59 Immune Globulin (Gamunex-C) 25 gm IVPB Q24H [facility] Stop: 05/31/17 20:01 Last Admin: 05/27/17 21:16 Dose: 25 gm Insulin Aspart (Novolog Vial Sliding Scale -) 1 vial SQ Q6HPO [facility] PRN Reason: Protocol Last Admin: 05/28/17 06:12 Dose: Not Given Metoprolol Tartrate (Lopressor -) 25 mg PO BID [facility] Last Admin: 05/27/17 21:36 Dose: 25 mg Pyridostigmine [place] (Mestinon -) 60 mg PO TID [facility] Last Admin: 05/28/17 05:47 Dose: 60 mg - Objective Vital Signs: Vital Signs Temperature 98.5 F 05/28/17 04:00 Pulse Rate 80 05/28/17 04:00 Respiratory Rate 20 05/28/17 06:00 Blood Pressure 156/57 05/28/17 06:00 O2 Sat by Pulse Oximetry (%) 97 05/28/17 03:12 Constitutional: Yes: No Distress Eyes: Yes: Conjunctiva Clear Cardiovascular: Yes: Regular Rate and Rhythm, S1, S2 Respiratory: Yes: CTA Bilaterally Gastrointestinal: Yes: Normal Bowel Sounds, Soft. No: Tenderness Edema: No Labs: CBC, BMP 05/28/17 05:28 05/28/17 05:28 INR, PTT INR 0.88 (0.82-1.09) 05/26/17 10:35 Assessment/Plan Acute exacerbation, Myasthenia Gravis ? Secondary to infection ( gastroenteritis) Acute gastroenteritis Leukocytosis Await cultures Continue empiric ceftriaxone
[2017-05-28] MEDS: DIGOXIN 0.125 MG TABLET (FP) PO SCH (09:37)
[2017-05-28] MEDS: FLUoxetine HCL 10 MG CAPSULE (FP) PO SCH (09:38)
[2017-05-28] MEDS: amLODIPine BESYLATE 10 MG TABLET (FP) PO SCH (09:38)
[2017-05-28] MEDS ORDERED: POTASSIUM PHOSPHATE 30 MM in SODIUM CHLORIDE 500 ML IVPB ONE (10:00)
--- NOTE | 2017-05-28 10:05 | PN ---
Progress Note, Physician History of Present Illness: PULMONARY ALERT,LESS DYSPNEIC CURRENTLY ON BIPAP WAS ON NASAL CANNULA ALL NIGHT TOLERATED WELL. PT STARTED ON IVIG LAST NIGHT BY NEUROLOGY - Current Medication List Current Medications: Active Medications Amlodipine Besylate (Norvasc -) 10 mg PO DAILY [facility] Last Admin: 05/28/17 09:38 Dose: 10 mg Digoxin (Lanoxin -) 0.125 mg PO DAILY [facility] Last Admin: 05/28/17 09:37 Dose: 0.125 mg Fluoxetine HCl (Prozac -) 10 mg PO DAILY [facility] Last Admin: 05/28/17 09:38 Dose: 10 mg Heparin Sodium (Porcine) (Heparin -) 1,000 unit IVPUSH PRN PRN PRN Reason: Heparin Last Admin: 05/28/17 09:15 Dose: 1,000 unit Heparin Sodium (Porcine) (Heparin -) 3,500 unit IVPUSH PRN PRN PRN Reason: Heparin Heparin Sodium (Porcine) 25, (000 unit/ Sodium Chloride) 500 mls @ 16 mls/hr IV TITR THANH; 800 UNIT/HR PRN Reason: Protocol Last Admin: 05/28/17 08:54 Dose: 16 mls/hr CEFTRIAXONE 1 G/50 ML PREMIX (Ceftriaxone 1 Gm-D5w Bag) 50 mls @ 100 mls/hr IVPB DAILY [facility] Last Admin: 05/28/17 09:14 Dose: 100 mls/hr Potassium Phosphate 30 mm/ (Sodium Chloride) 510 mls @ 85 mls/hr IVPB ONCE ONE Stop: 05/28/17 15:59 Immune Globulin (Gamunex-C) 25 gm IVPB Q24H [facility] Stop: 05/31/17 20:01 Last Admin: 05/27/17 21:16 Dose: 25 gm Insulin Aspart (Novolog Vial Sliding Scale -) 1 vial SQ Q6HPO [facility] PRN Reason: Protocol Last Admin: 05/28/17 06:12 Dose: Not Given Metoprolol Tartrate (Lopressor -) 25 mg PO BID [facility] Last Admin: 05/27/17 21:36 Dose: 25 mg Pyridostigmine [place] (Mestinon -) 60 mg PO TID [facility] Last Admin: 05/28/17 05:47 Dose: 60 mg - Objective Vital Signs: Vital Signs Temperature 98.5 F 05/28/17 04:00 Pulse Rate 71 05/28/17 09:37 Respiratory Rate 20 05/28/17 06:00 Blood Pressure 156/57 05/28/17 06:00 O2 Sat by Pulse Oximetry (%) 100 05/28/17 09:54 Constitutional: Yes: Well Nourished, Calm Eyes: Yes: WNL HENT: Yes: WNL Neck: Yes: WNL Cardiovascular: Yes: Pulse Irregular, S1, S2 Respiratory: Yes: Diminished Gastrointestinal: Yes: Normal Bowel Sounds, Soft Extremities: Yes: WNL Edema: No Labs: CBC, BMP 05/28/17 05:28 05/28/17 05:28 INR, PTT INR 0.88 (0.82-1.09) 05/26/17 10:35 Problem List - Problems (1) Shortness of breath Code(s): R06.02 - SHORTNESS OF BREATH (2) Acute hypercapnic respiratory failure Code(s): J96.02 - ACUTE RESPIRATORY FAILURE WITH HYPERCAPNIA Assessment/Plan Problem List - Problems (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
[2017-05-28] MEDS: METOPROLOL TARTRATE 25 MG TABLET (FP) PO SCH ×3 (10:32→22:10)
--- NOTE | 2017-05-28 11:48 | CONS ---
DATE OF CONSULTATION: DATE OF DICTATION: 05/28/2017 HISTORY OF PRESENT ILLNESS: The patient is an 86-year-old female with a history of myasthenia gravis evaluated for leukocytosis. The patient was admitted to the hospital on May 24, 2017, with an at least 2-week history of diarrhea and anorexia. Patient reports recently being treated for urinary tract infection. She reports having diarrhea for at least the past 2 weeks. It is described as watery and brown without associated blood. She has some crampy abdominal pain, but no vomiting or diarrhea. In addition, she reported difficulty swallowing. She was diagnosed with an acute exacerbation of myasthenia gravis. She was treated with Mestinon. Her course was complicated by new onset atrial fibrillation and congestive heart failure. She is now noted to have a markedly elevated white blood cell count of 23,000. The patient is awake and alert. Her main concern is loose bowel movements. She denies any severe abdominal pain. No associated fever or chills. She denies any chest pain, shortness of breath, cough, or sputum production. No complaints of dysuria or hematuria. Stools for C. difficile and culture and sensitivity were obtained and are negative. She was empirically treated with ceftriaxone. PAST MEDICAL HISTORY: Positive for myasthenia gravis. She was diagnosed approximately 1 year ago. She has had 2 episodes of acute exacerbations. History of hypertension, hyperlipidemia, diabetes mellitus. ALLERGIES: No known allergies. MEDICATIONS: Include heparin, Prozac, Lopressor, Lanoxin, ceftriaxone, Norvasc, NovoLog, Mestinon, and now . SOCIAL HISTORY: She lives at home with family members, is a nonsmoker / nondrinker. SYSTEMS REVIEW: Neurologic: As per HPI. Cardiac: Positive for new onset atrial fibrillation. Respiratory: Negative for cough or sputum production. Gastrointestinal: Negative for nausea and vomiting. Positive for diarrhea. Genitourinary: Negative for urinary tract infection. LABORATORY DATA: White count 23.8, hematocrit 40.1, platelet count 241. BUN 20, creatinine 1.2, total bilirubin 0.3, alkaline phosphatase 94, AST 26. Blood and urine cultures preliminarily negative. Stool culture negative. C. difficile negative. Urinalysis 15 white cells. Chest x-ray congestive changes bilaterally. PHYSICAL EXAMINATION: General: She is awake and alert. She is in no acute distress. Vital signs: Temperature 98.6, blood pressure 177/48, pulse 75 and regular, respirations 20 per minute. HEENT: Sclerae anicteric. Heart: Heart sounds S1, S2. Lungs: Diminished breath sounds at the bases bilaterally. Abdomen: Soft. No tenderness elicited. No mass, rebound, or rigidity. Extremities: Negative for edema. IMPRESSION: 1. Leukocytosis, possible sepsis. 2. Acute exacerbation myasthenia gravis. 3. Acute gastroenteritis. Possible acute exacerbation of myasthenia gravis secondary to gastroenteritis. Await cultures, obtain stool culture, blood cultures. Continue empiric ceftriaxone. Cephalosporins considered safe in myasthenia, although ampicillin has been anecdotally associated with respiratory depression. Drugs to avoid that may impair neuromuscular junction transmission and increase weakness include aminoglycosides, fluoroquinolones, tetracycline, clindamycin, and macrolide. Will obtain stool for ovum parasite, continue treatment for myasthenia gravis. Will follow. Thank you for the kind referral. HALINA SHAH M.D. [id number]
--- NOTE | 2017-05-28 13:53 | PN ---
Progress Note, Physician Chief Complaint: Patient is still with BiPAP. She complains of weakness and fatigue. No palpitation or chest pain. No SOB while on BiPAP. She was spontaneously cardioverted to sinus rhythm today. Tele shows sinus rhythm in 60's BPM. History of Present Illness: 86 year old woman with a PMHx of myasthenia gravis, MDD, HTN, and hyperlipidemia presented with diarrhea for 2 weeks with weight loss. Reports adrenal mass on ct abd in past. Was transferred to MICU for dyspnea and myasthenia. Noted to be in new afib with RVR. No chest pain or palpitations but dyspnea worsening after receiving diltiazem. She received digoxin IV loading and metoprolol. VR control improved. Her troponin is trending up, likely secondary to demand ischemia. She was spontaneously cardioverted to sinus rhythm today. Echocardiogram 05/27/2017: Normal LV systolic function. No regional wall motion abnormalities. Normal RV. No significant valvular abnormalities. - Current Medication List Current Medications: Active Medications Amlodipine Besylate (Norvasc -) 10 mg PO DAILY [facility] Last Admin: 05/28/17 09:38 Dose: 10 mg Digoxin (Lanoxin -) 0.125 mg PO DAILY [facility] Last Admin: 05/28/17 09:37 Dose: 0.125 mg Fluoxetine HCl (Prozac -) 10 mg PO DAILY [facility] Last Admin: 05/28/17 09:38 Dose: 10 mg Heparin Sodium (Porcine) (Heparin -) 1,000 unit IVPUSH PRN PRN PRN Reason: Heparin Last Admin: 05/28/17 09:15 Dose: 1,000 unit Heparin Sodium (Porcine) (Heparin -) 3,500 unit IVPUSH PRN PRN PRN Reason: Heparin Heparin Sodium (Porcine) 25, (000 unit/ Sodium Chloride) 500 mls @ 16 mls/hr IV TITR THANH; 800 UNIT/HR PRN Reason: Protocol Last Admin: 05/28/17 08:54 Dose: 16 mls/hr CEFTRIAXONE 1 G/50 ML PREMIX (Ceftriaxone 1 Gm-D5w Bag) 50 mls @ 100 mls/hr IVPB DAILY [facility] Last Admin: 05/28/17 09:14 Dose: 100 mls/hr Potassium Phosphate 30 mm/ (Sodium Chloride) 510 mls @ 85 mls/hr IVPB ONCE ONE Stop: 05/28/17 15:59 Last Admin: 05/28/17 10:32 Dose: 85 mls/hr Immune Globulin (Gamunex-C) 25 gm IVPB Q24H [facility] Stop: 05/31/17 20:01 Last Admin: 05/27/17 21:16 Dose: 25 gm Insulin Aspart (Novolog Vial Sliding Scale -) 1 vial SQ Q6HPO [facility] PRN Reason: Protocol Last Admin: 05/28/17 11:54 Dose: Not Given Metoprolol Tartrate (Lopressor -) 25 mg PO BID [facility] Last Admin: 05/28/17 10:32 Dose: 25 mg Pyridostigmine [place] (Mestinon -) 60 mg PO TID [facility] Last Admin: 05/28/17 05:47 Dose: 60 mg - Objective Vital Signs: Vital Signs Temperature 98.6 F 05/28/17 10:00 Pulse Rate 85 05/28/17 10:00 Respiratory Rate 20 05/28/17 10:00 Blood Pressure 166/69 05/28/17 10:00 O2 Sat by Pulse Oximetry (%) 100 05/28/17 09:54 Constitutional: Yes: Well Nourished, No Distress, Calm Eyes: Yes: Conjunctiva Clear, EOM Intact HENT: Yes: Atraumatic, Normocephalic Neck: Yes: Supple, Trachea Midline Cardiovascular: Yes: Regular Rate and Rhythm Respiratory: Yes: Regular, CTA Bilaterally, On Venti-Mask, Poor Air Entry Gastrointestinal: Yes: Normal Bowel Sounds, Soft ...Rectal Exam: Yes: Deferred Edema: No Peripheral Pulses WNL: Yes Labs: CBC, BMP 05/28/17 05:28 05/28/17 05:28 INR, PTT INR 0.88 (0.82-1.09) 05/26/17 10:35 Assessment/Plan 86 year old woman with a PMHx of myasthenia gravis, MDD, HTN, and hyperlipidemia presented with diarrhea for 2 weeks with weight loss. Reports adrenal mass on ct abd in past. Was transferred to MICU for dyspnea and myasthenia. Noted to be in new afib with RVR. No chest pain or palpitations but dyspnea worsening after receiving diltiazem. She received digoxin IV loading and metoprolol. VR control improved. Her troponin is trending up, likely secondary to demand ischemia. She was spontaneously cardioverted to sinus rhythm today. Seen by Neurology, Dr. Simons. IVIG recommended. Echocardiogram 05/27/2017: Normal LV systolic function. No regional wall motion abnormalities. Normal RV. No significant valvular abnormalities. 1) Atrial fibrillation: Spontaneously cardioverted to sinus rhythm today. Continue oral digoxin 0.125 mg daily and metoprolol 25 mg BID for VR control. Consider AC with NOAC: Eliquis 5 mg BID for CVA prevention ([id number] Score = 3). 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 2) NSTEMI secondary to demand ischemia: No chest pain. Troponin is trending down now. No regional wall motion abnormalities and preserved LV systolic function support the diagnosis. Please call us for reconsult as needed.
--- NOTE | 2017-05-28 14:29 | PN ---
Progress Note, [employer]LECT[employer] - Note Progress Note: Pt is verbal, oriented. Voice is hypophonic, dysphonic. Pt reports speech is less precise and weaker than baseline.She has a limited appetite, accepting just a few tsp of pureed fruit. Swallow is delayed and reduced in rate of laryngeal excursion, with a responsive cough with 1 of 3 trials of thin water. Silent aspiration can not be r/o at bedside. On bipap intermittently. Pt may benefit from MBS before diet is upgraded. Intermittent aspiration suspected on thin liquid. Selected Entries 05/26/17 05/26/17 05/26/17 06:00 09:10 10:49 Breakfast Supper Temperature 97.6 F 98.2 F 97.5 F L 05/26/17 05/26/17 05/26/17 15:59 19:00 21:00 Breakfast Supper Temperature 97.6 F 98 F 99.8 F H 05/27/17 05/27/17 05/27/17 01:00 10:25 14:00 Breakfast Supper Temperature 99.3 F 98.8 F 98.6 F 05/27/17 05/27/17 05/27/17 18:00 21:00 22:00 Breakfast Supper Temperature 98.3 F 99.2 F 98.8 F 05/27/17 05/28/17 05/28/17 23:43 02:00 04:00 Breakfast Supper NPO Temperature 98.5 F 98.5 F 05/28/17 05/28/17 10:00 13:59 Breakfast 0 Supper Temperature 98.6 F 97.6 F Laboratory Tests 05/26/17 05/28/17 10:35 05:28 WBC 14.2 H D 21.3 H rec; Continue dysphagia puree and nectar thick liquid. RD consult regarding supplements- Pt is a diabetic. Glucerna is too thin. Consider Magic cup/Ensure compat if blood sugar is under control.
--- NOTE | 2017-05-28 15:00 | PN ---
Addendum entered and electronically signed by Addie Caro, JESUS 05/28/17 18: 03: phos and mg wnl this afternoon. K+ 3.4 -> K-dur 20meq po once added. Ensure TID with meals added. Addendum entered and electronically signed by Addie Caro, JESUS 05/28/17 16: 38: goal PTT = 50-70. On exam, oscar CVA (-) and JVD (-). Original Note: Physical Exam: SUBJECTIVE: Patient seen and examined. Pt reports nausea and 1 episode of diarrhea this morning. Pt denies fever, chills. Pt requesting bipap this morning. No events overnight. OBJECTIVE: Vital Signs Period Temp Pulse Resp BP Sys/Coulter Pulse Ox Last 24 Hr 97.6 F-99.2 F 65-105 18-20 127-166/53-76 97-100 GENERAL: The patient is awake, alert, and fully oriented, in no acute distress. Bipap mask re-applied per pt request. LUNGS: Breath sounds equal, clear to auscultation bilaterally, no wheezes, no crackles, no accessory muscle use. HEART: 3/6 holosystolic murmur at Left upper sternal border appreciated. Regular rate and rhythm. ABDOMEN: Soft, nontender, nondistended, normoactive bowel sounds. EXTREMITIES: Warm, well-perfused, no edema. NEUROLOGICAL: Cranial nerves II through XII grossly intact. Muscle strength 5/ 5 throughout, except for Right UE (4/5). Sensation intact and symmetric throughout. Reflexes 2/4 x 4 extremities. PSYCH: Normal mood, normal affect. SKIN: Warm, dry, normal turgor, no rashes or lesions noted Laboratory Results - last 24 hr 05/27/17 05/27/17 05/28/17 13:45 19:45 01:20 WBC RBC Hgb Hct MCV MCH MCHC RDW Plt Count MPV PTT (Actin FS) Anticoagulation Therapy Puncture Site ABG pH ABG pCO2 at Pt Temp ABG pO2 at Pt Temp ABG HCO3 ABG O2 Sat (Measured) ABG O2 Content ABG Base Excess Vasyl Test O2 Delivery Device Oxygen Flow Rate Vent Mode Vent Rate Mechanical Rate Pressure Support Vent Sodium Potassium Chloride Carbon Dioxide Anion Gap BUN Creatinine Random Glucose Calcium Phosphorus Magnesium Creatine Kinase 90 98 Troponin I 0.50 H 0.51 H 0.43 H 05/28/17 05/28/17 05/28/17 05:28 05:28 05:28 WBC 21.3 H RBC 4.54 Hgb 13.4 Hct 40.7 MCV 89.6 MCH 29.5 MCHC 33.0 RDW 13.0 Plt Count 227 MPV 9.9 PTT (Actin FS) 45.0 H Anticoagulation Therapy Puncture Site ABG pH ABG pCO2 at Pt Temp ABG pO2 at Pt Temp ABG HCO3 ABG O2 Sat (Measured) ABG O2 Content ABG Base Excess Vasyl Test O2 Delivery Device Oxygen Flow Rate Vent Mode Vent Rate Mechanical Rate Pressure Support Vent Sodium 145 Potassium 3.0 L Chloride 107 Carbon Dioxide 30 Anion Gap 8 BUN 17 Creatinine 0.7 D Random Glucose 124 H Calcium 8.4 L Phosphorus 1.8 L D Magnesium 1.6 L Creatine Kinase Troponin I 05/28/17 07:13 WBC RBC Hgb Hct MCV MCH MCHC RDW Plt Count MPV PTT (Actin FS) Anticoagulation Therapy Y Puncture Site Right brachial ABG pH 7.30 L ABG pCO2 at Pt Temp 53.5 H D ABG pO2 at Pt Temp 138.0 H D ABG HCO3 29.2 H ABG O2 Sat (Measured) Y ABG O2 Content 19.5 ABG Base Excess 3.0 H Vasyl Test Not applicable O2 Delivery Device Nasal 02 Oxygen Flow Rate 3l Vent Mode Y Vent Rate Y Mechanical Rate Y Pressure Support Vent Y Sodium Potassium Chloride Carbon Dioxide Anion Gap BUN Creatinine Random Glucose Calcium Phosphorus Magnesium Creatine Kinase Troponin I Active Medications Generic Name Dose Route Start Last Admin Trade Name Freq PRN Reason Stop Dose Admin Amlodipine Besylate 10 mg 05/28/17 10:00 05/28/17 09:38 Norvasc - PO 10 mg DAILY [facility] Administration Digoxin 0.125 mg 05/28/17 10:00 05/28/17 09:37 Lanoxin - PO 0.125 mg DAILY [facility] Administration Fluoxetine HCl 10 mg 05/27/17 10:00 05/28/17 09:38 Prozac - PO 10 mg DAILY [facility] Administration Heparin Sodium (Porcine) 1,000 unit 05/26/17 10:04 05/28/17 09:15 Heparin - IVPUSH 1,000 unit PRN PRN Administration Heparin Heparin Sodium (Porcine) 3,500 unit 05/26/17 10:30 Heparin - IVPUSH PRN PRN Heparin Heparin Sodium (Porcine) 25, 500 mls @ 16 mls/hr 05/26/17 11:30 05/28/17 08:54 000 unit/ Sodium Chloride IV 16 mls/hr TITR [facility]AN[facility] Administration Protocol 800 UNIT/HR CEFTRIAXONE 1 G/50 ML PREMIX 50 mls @ 100 mls/hr 05/27/17 15:00 05/28/17 09:14 Ceftriaxone 1 Gm-D5w Bag IVPB 100 mls/hr DAILY [facility] Administration Potassium Phosphate 30 mm/ 510 mls @ 85 mls/hr 05/28/17 10:00 05/28/17 10:32 Sodium Chloride IVPB 05/28/17 15:59 85 mls/hr ONCE ONE Administration Immune Globulin 25 gm 05/27/17 20:00 05/27/17 21:16 Gamunex-C IVPB 05/31/17 20:01 25 gm Q24H [facility] Administration Insulin Aspart 1 vial 05/27/17 18:00 05/28/17 11:54 Novolog Vial Sliding Scale - SQ Not Given Q6HPO [facility] Protocol Metoprolol Tartrate 25 mg 05/27/17 13:00 05/28/17 10:32 Lopressor - PO 25 mg BID [facility] Administration Pyridostigmine [place] 60 mg 05/26/17 14:00 05/28/17 05:47 Mestinon - PO 60 mg TID [facility] Administration IMAGIN05/27/17 echo -> normal Left ventricular size and function 05/27/17 renal US -> no hydronephrosis, normal size kidneys. ASSESSMENT/PLAN: 86yo F with PMH of myesthenia gravis, DM, htn, hld, presents with diarrhea x 2 weeks, found to have new onset afib. 1) new onset afib - possibly 2/2 myesthenia crisis - continue Digoxin 0.125mg po daily - heart rate now controlled - avoid Cardizem 2/2 myesthenia gravis - Metoprolol 25mg po BID added -> can increase to TID if needed - continue Heparin drip - most recent EKG shows First degree AV block and inverted T waves in inferolateral leads - Cardiology following - per Cardio consider converting anticoagulation from Heparin drip to Eliquis 5mg po BID 2) acute heart failure, in the setting of afib with RVR - Cr improved - continue to hold diuretic and IVFs - daily wts - strict I&O's - watch for volume depletion 3) hypoxic hypercapnic respiratory failure - likely 2/2 CHF - continue bipap prn - ABG reveals improved CO2 and bicarb 4) hypertroponinemia - possibly 2/2 demand ischemia related to tachycardia yesterday - trop trending down - no chest pain 5) Myesthenia Gravis - continue Pyridostigmine - IVIG 2g/kg x 5 days added per Neurology - Neurology following 6) leukocytosis - trending up - blood culture (-) x 24 hrs - Day 2 of IV Cetriaxone - ID following 7) htn - consider continuing home med of Norvasc - continue Lopressor, if BP remains high can increase to TID 8) DM - Novolog SSI - BGMs 10) hypokalemia, hypomagnesemia and hypophosphatemia - repleted with KPhos IVPB 30mm and Mg Sulfate 2g IVPB - continue to monitor 11) FEN - Fluids: encouraged po intake of thickened liquids - Electrolytes: hypomagnesemia resolved, hypophosphatemia noted, continue to monitor - Nutrition: puree with [place] Thick Liquids per Speech Therapy rec 12) Prophylaxis - DVT ppx with Heparin drip-> monitor for hematuria (hx of bleeding with Heparin) - deconditioning ppx with PT Consult Pt is DNR. Visit type - Emergency Visit Emergency Visit: Yes ED Registration Date: 05/24/17 Care time: The patient presented to the Emergency Department on the above date and was hospitalized for further evaluation of their emergent condition. - New Patient This patient is new to me today: No - Critical Care Critical Care patient: Yes Total Critical Care Time (in minutes): 40 Critical Care Statement: The care of this patient involved high complexity decision making to prevent further life threatening deterioration of the patient 's condition and/or to evaluate & treat vital organ system(s) failure or risk of failure.
[2017-05-28] MEDS ORDERED: HEPARIN - 25,000 UNIT in SODIUM CHLORIDE 495 ML IV SCH (16:24)
[2017-05-28 17:43] LABS: MAGNESIUM 2.3 mg/dL (1.8-2.4); PHOSPHOROUS 4.2 mg/dL (2.5-4.9)
[2017-05-28] MEDS ORDERED: POTASSIUM CHLORIDE TABS 20 MEQ TABLET.ER (FP) PO ONE (18:01)
--- NOTE | 2017-05-28 18:20 | PN ---
Teaching Attending Note Name of Resident: Addie Caro ATTENDING PHYSICIAN STATEMENT I saw and evaluated the patient. I reviewed the resident's note and discussed the case with the resident. I agree with the resident's findings and plan as documented. SUBJECTIVE: seen at 9:30 am no fever , did not use BIPAP over night , but in AM felt SOB OBJECTIVE: NAD ,awake , alert and cooperative. BIPAP mask on CV: irreg irreg , 3/6 SM at base and LLSB,also heard fainter in apex. no radiation to carotids. No JVD Lungs: CTAB , decreased breath sounds at bases . poor air entry Abd: soft, NT, ND, NL BS Ext: trace edema . DP 2+ b/l Assessment/Plan: 86 y/o lady with h/o HTN, DM , recent diagnosis of MG, and hyperlipidemia who presented with difficulty swallowing and SOB . Now with irregular heart rate 1- New onset AFib: rate controlled , converted to sinus . - cont BB and dig - monitor for signs of dig toxicity in this elderly patient especially if renal function worsens - [id number] sore of 5, cont heparin gtt. had hematuria in past with sq heparin , so will monitor on gtt for a couple days before starting eliquis - Echo reviewed. 2- Acute heart failure : due to RVR. Looks euvolemic today. No need to diuress further for now monitor fro volume depletion in setting of poor po intake 3- NSTEMI due to demand ischemia in the setting of rapid A fib . trop trended down . stable ST changes 4-Acute hypoxic hypercapnic resp failure due to MG crisis - cont BIPAP . - cont IVIG 5- Myasthenia gravis in Crisis - cont pyridostigmin - cont IVIG daily for 5 days ( first dose yesterday evenign ) 6- HTN: increase BB to 37.5 BID . if needed can resusme home hydralazin 7- Leukocytosis : has a recent UTI which was partially treated as out pt . Neg C diff follow urine and blood cx cont empiric CTX 8- HLOC . tele
--- NOTE | 2017-05-28 18:49 | PN ---
Progress Note (short form) - Note Progress Note: Pt. reports she is able to swallow, denies neck weakness. She describes abdominal dyscomfort when she eats, : i gave her ice cream and pudding able to swallow both without difficulty. evel Of Consciousness: Yes: Alert, Oriented to Person, Oriented to Place, Oriented to Time Eyes: Yes: BEBE (Somewhat hypophonic) Dominant Hand: Right Mini Mental Exam: Awake, alert, follows all commands, Cranial Nerves II-XII Intact: slight dysconjugate gaze though EOMI, slight head drop, Gag: Present DTR's: 0 Left Achilles, 0 Right Achilles, 1+ Left Bicep, 1+ Right Bicep, 1+ Left Tricep, 1+ Right Tricep, 1+ Left Brachioradialis, 1+ Right Brachioradialis Babinski: Absent Response to light touch: Normal Response to pain prick: Normal Response to vibration: Normal Motor Strength: 5/5:weakness deltoid R >L 4/5 , TR R 4+/5, L 5/5, LE 5/5 Gait: Deferred Assessment/Plan Pt. with hx. of MG x1 byear, stable on Mestinon 60mg tid since her last Myasthenic crisis in 02/04. She now presents with diarrhoea x 2 weeks-though she states may have started even bf being on mestinon new onset Afib appears to have MG exacerbation , more bulbar ; ? related to underlying infection On IVIG day #2.-Would cont. PLanLCont. IVIG, she does not appear worsened than yesterday.
--- NOTE | 2017-05-28 19:08 | EKG ---
Test Reason : Blood Pressure : / mmHG Vent. Rate : 079 BPM Atrial Rate : 079 BPM P-R Int : 164 ms QRS Dur : 092 ms QT Int : 348 ms P-R-T Axes : 018 007 223 degrees QTc Int : 399 ms NORMAL SINUS RHYTHM LEFT VENTRICULAR HYPERTROPHY WITH REPOLARIZATION ABNORMALITY ST SEGMENT DEPRESSIONS IN V5-V6 ABNORMAL ECG WHEN COMPARED WITH ECG OF 27-MAY-2017 20:36, IA INTERVAL HAS DECREASED OTHER CHANGES MENTIONED ABOVE Confirmed by NAKIA GRACIA MD ([id number]) on 05/28/2017 7:08:20 PM Referred By: RAIN SANTOS DR Confirmed By:NAKIA GRACIA MD
[2017-05-28] MEDS ORDERED: PT OWN MED DRAWER 7, Y5N ONE (19:44)
[2017-05-28] MEDS: IMMUNE GLOBULIN (IgG) 20 GM VIAL IVPB SCH (23:07)
[2017-05-29] MEDS: INSULIN SLIDING SCALE (NOVOLOG) 1 VIAL SQ SCH ×4 (00:31→23:47)
--- NOTE | 2017-05-29 06:32 | EKG ---
Test Reason : Blood Pressure : / mmHG Vent. Rate : 157 BPM Atrial Rate : 366 BPM P-R Int : 000 ms QRS Dur : 086 ms QT Int : 312 ms P-R-T Axes : 000 021 189 degrees QTc Int : 504 ms ATRIAL FIBRILLATION vs. ATRIAL FLUTTER WITH VARIABLE A-V BLOCK LEFT VENTRICULAR HYPERTROPHY WITH REPOLARIZATION ABNORMALITY ST DEPRESSION IN LATERAL LEADS POSSIBLE ST ELEVATION IN INFERIOR LEADS ABNORMAL ECG WHEN COMPARED WITH ECG OF 24-MAY-2017 19:12, ATRIAL FLUTTER HAS REPLACED SINUS RHYTHM VENT. RATE HAS INCREASED BY [address] MORE DEPRESSED LATERAL LEADS PATIENT SITTING IN CHAIR DURING EKG Confirmed by SARA PORTER MD ([id number]) on 05/29/2017 6:32:37 AM Referred By: Yael DE JESUS Confirmed By:SARA PORTER MD
[2017-05-29 08:00] LABS: MCH 29.7 pg (25.7-33.7); MCHC 33.1 g/dl (32.0-36.0); MEAN CELL VOLUME 89.6 fl (80-96); MEAN PLT VOLUME 9.5 fl (7.5-11.1); PLATELET COUNT 206 K/MM3 (134-434); RDW 13.1 % (11.6-15.6); WHITE BLOOD COUNT 13.7 K/mm3 (4.0-10.0)
[2017-05-29] MEDS ORDERED: ONDANSETRON 8 MG TABLET (FP) PO PRN (08:09)
[2017-05-29] MEDS: HEPARIN - 25,000 UNIT in SODIUM CHLORIDE 495 ML IV SCH ×2 (08:34→17:00)
[2017-05-29] MEDS ORDERED: PT OWN MED DRAWER 7, Y5N ONE ×2 (08:40→18:25)
[2017-05-29] MEDS ORDERED: ONDANSETRON 4 MG TABLET PO ONE (08:40)
--- NOTE | 2017-05-29 09:12 | PN ---
Progress Note (short form) - Note Progress Note: FU : day 3 IVIG feels weaker today , though denies SOB, focal weakness +nausea, feels food may get stuck in bottom of throat evel Of Consciousness: Yes: Alert, Oriented to Person, Oriented to Place, Oriented to Time Eyes: Yes: BEBE (Somewhat hypophonic) Dominant Hand: Right Mini Mental Exam: Awake, alert, follows all commands, Cranial Nerves II-XII Intact: slight dysconjugate gaze though EOMI, slight head drop, Gag: Present DTR's: 0 Left Achilles, 0 Right Achilles, 1+ Left Bicep, 1+ Right Bicep, 1+ Left Tricep, 1+ Right Tricep, 1+ Left Brachioradialis, 1+ Right Brachioradialis Babinski: Absent Response to light touch: Normal Response to pain prick: Normal Response to vibration: Normal Motor Strength: 5/5:weakness deltoid R >L 4/5 , TR R 4+/5, L 5/5, LE 5/5 Gait: Deferred Vital Signs Temperature 97.5 F L 05/29/17 01:45 Pulse Rate 60 05/29/17 02:45 Respiratory Rate 18 05/29/17 02:45 Blood Pressure 158/72 05/29/17 02:45 O2 Sat by Pulse Oximetry (%) 98 05/29/17 02:37 Assessment/Plan Pt. with hx. of MG x1 year, stable on Mestinon 60mg tid since her last Myasthenic crisis in 02/04. She now presents with diarrhea x 2 weeks-though she states may have started even bf being on mestinon( willc onsider tapering dose when she is more stable) new onset Afib appears to have MG exacerbation , more bulbar ; ? related to underlying infection On IVIG day #3.-Would cont. add on prednisone 40mg poqd ( DM , watch sugars) consider GI consult for diarhea, ? esophageal issue beyond MG Dr Simons
--- NOTE | 2017-05-29 09:33 | PN ---
Teaching Attending Note Name of Resident: Addie Caro ATTENDING PHYSICIAN STATEMENT I saw and evaluated the patient. I reviewed the resident's note and discussed the case with the resident. I agree with the resident's findings and plan as documented. SUBJECTIVE: Patient is c/o having nausea, denies any chest pain, no shortness of breath, stated that she does not feel well today. OBJECTIVE: Vital Signs Temperature 97.5 F L 05/29/17 01:45 Pulse Rate 60 05/29/17 02:45 Respiratory Rate 18 05/29/17 02:45 Blood Pressure 158/72 05/29/17 02:45 O2 Sat by Pulse Oximetry (%) 98 05/29/17 02:37 CBCD WBC 13.7 K/mm3 (4.0-10.0) H D 05/29/17 05:20 RBC 4.51 M/mm3 (3.60-5.2) 05/29/17 05:20 Hgb 13.4 GM/dL (10.7-15.3) 05/29/17 05:20 Hct 40.4 % (32.4-45.2) 05/29/17 05:20 MCV 89.6 fl (80-96) 05/29/17 05:20 MCHC 33.1 g/dl (32.0-36.0) 05/29/17 05:20 RDW 13.1 % (11.6-15.6) 05/29/17 05:20 Plt Count 206 K/MM3 (134-434) 05/29/17 05:20 MPV 9.5 fl (7.5-11.1) 05/29/17 05:20 CMP Sodium 145 mmol/L (136-145) 05/28/17 05:28 Potassium 3.4 mmol/L (3.5-5.1) L 05/28/17 16:05 Chloride 107 mmol/L (98-107) 05/28/17 05:28 Carbon Dioxide 30 mmol/L (21-32) 05/28/17 05:28 Anion Gap 8 (8-16) 05/28/17 05:28 BUN 17 mg/dL (7-18) 05/28/17 05:28 Creatinine 0.7 mg/dL (0.55-1.02) D 05/28/17 05:28 Creat Clearance w eGFR > 60 (>60) 05/24/17 13:12 Random Glucose 124 mg/dL (74-106) H 05/28/17 05:28 Calcium 8.4 mg/dL (8.5-10.1) L 05/28/17 05:28 Total Bilirubin 0.3 mg/dL (0.2-1.0) 05/24/17 13:12 AST 26 U/L (15-37) 05/24/17 13:12 ALT 26 U/L (12-78) 05/24/17 13:12 Alkaline Phosphatase 94 U/L (45-117) 05/24/17 13:12 Total Protein 6.5 g/dl (6.4-8.2) 05/24/17 13:12 Albumin 3.5 g/dl (3.4-5.0) 05/24/17 13:12 CARDIAC ENZYMES Creatine Kinase 98 IU/L (26-192) 05/27/17 19:45 Troponin I 0.43 ng/ml (0.00-0.05) H 05/28/17 01:20 Current Medications Generic Name Dose Route Start Last Admin Trade Name Freq PRN Reason Stop Dose Admin Amlodipine Besylate 10 mg 05/28/17 10:00 05/28/17 09:38 Norvasc - PO 10 mg DAILY THANH Administration Digoxin 0.125 mg 05/28/17 10:00 05/28/17 09:37 Lanoxin - PO 0.125 mg DAILY THANH Administration Fluoxetine HCl 10 mg 05/27/17 10:00 05/28/17 09:38 Prozac - PO 10 mg DAILY THANH Administration Heparin Sodium (Porcine) 1,000 unit 05/26/17 10:04 05/28/17 09:15 Heparin - IVPUSH 1,000 unit PRN PRN Administration Heparin Heparin Sodium (Porcine) 3,500 unit 05/26/17 10:30 Heparin - IVPUSH PRN PRN Heparin CEFTRIAXONE 1 G/50 ML PREMIX 50 mls @ 100 mls/hr 05/27/17 15:00 05/28/17 09: 14 Ceftriaxone 1 Gm-D5w Bag IVPB 100 mls/hr DAILY THANH Administration Heparin Sodium (Porcine) 25, 500 mls @ 16 mls/hr 05/28/17 16:35 05/29/17 08: 34 000 unit/ Sodium Chloride IV 800 unit/hr TITR THANH 16 mls/hr Protocol Administration 800 UNIT/HR Immune Globulin 25 gm 05/27/17 20:00 05/28/17 23:07 Gamunex-C IVPB 05/31/17 20:01 25 gm Q24H [facility] Administration Insulin Aspart 1 vial 05/27/17 18:00 05/29/17 00:31 Novolog Vial Sliding Scale - SQ Not Given Q6HPO [facility] Protocol Metoprolol Tartrate 37.5 mg 05/28/17 18:20 05/28/17 22:10 Lopressor - PO Not Given BID [facility] Ondansetron HCl 8 mg 05/29/17 08:09 05/29/17 08:44 Zofran - PO 8 mg Q8H PRN Administration NAUSEA Pyridostigmine Orient 60 mg 05/26/17 14:00 05/28/17 22:16 Mestinon - PO Not Given TID [facility] Home Medications Medication Instructions Recorded Amlodipine Besylate/Benazepril 1 cap PO BID 05/24/17 [Lotrel 10-20 mg Capsule] Amoxicillin/Potassium Clav 1 each PO DAILY 05/24/17 [Augmentin 875-125 Tablet] Fluoxetine HCl 10 mg PO DAILY 05/24/17 Hydralazine HCl 10 mg PO BID 05/24/17 Metformin HCl [Glucophage] 500 mg PO BID 05/24/17 Pantoprazole Sodium 40 mg PO DAILY 05/24/17 Potassium Chloride 10 meq PO DAILY 05/24/17 Pyridostigmine [Mestinon] 60 mg PO TID 05/24/17 Rosuvastatin [Crestor -] 10 mg PO DAILY 05/24/17 PE: Generally comfortable, with no acute distress. Rest of PE per Resident's note ASSESSMENT AND PLAN: Patient is a 86 y/o lady with h/o HTN, DM , recent diagnosis of Myasthenia Gravis , hyperlipidemia who presented with difficulty swallowing and SOB . Now with irregular heart rate # New onset AFib: rate controlled, back to sinus now, continue BB and digoxin as per cardiology for VR control. [id number] sore of 5, cont heparin gtt. No hematuria, cleared up for now, continue heparin gtt , Eliquis 5mg po bid prior to discharge as per cardio.for CVA prevention . Spontaneously cardioverted to sinus rhythm. # Acute heart failure : due to RVR. , ECHo withion NL limit . No need to diuress further, patient is Euvolemic. Echocardiogram 05/27/2017: Normal LV systolic function. No regional wall motion abnormalities. Normal RV. No significant valvular abnormalities. # NSTEMI due to demand ischemia in the setting of rapid A fib . No ST changes. Troponin is slightly elevated today. # s/p Acute hypoxic hypercapnic respiratory failure due to MG crisis on Bipap prn. On IVIG continue # Acute Myasthenia gravis Crisis on pyridostigmin , on IVIG daily x 5 days, added Prednisone per [facility]. # HTN Uncontrolled on BB to 37.5 BID, will monitor , will resume her home hydralazine # Leukocytosis : has a recent UTI which was partially treated as out pt . On IV antibiotic continue, Neg C diff, so culture is negative , cont empiric CTX # Difficulty with swallowing , will get Dagn speech therapist to evaluate the patient. DVT Px: Heparin drip
[2017-05-29] MEDS: DIGOXIN 0.125 MG TABLET (FP) PO SCH (09:42)
[2017-05-29] MEDS: CEFTRIAXONE 1 G/50 ML PREMIX 50 ML IVPB SCH (09:42)
[2017-05-29] MEDS: METOPROLOL TARTRATE 25 MG TABLET (FP) PO SCH ×2 (09:43→22:02)
[2017-05-29] MEDS: FLUoxetine HCL 10 MG CAPSULE (FP) PO SCH (09:46)
[2017-05-29] MEDS: amLODIPine BESYLATE 10 MG TABLET (FP) PO SCH (09:46)
[2017-05-29 10:06] LABS: ANION GAP 9 (8-16); CO2 30 mmol/L (21-32); CREATININE 0.6 mg/dL (0.55-1.02); GLUCOSE,RANDOM 136 mg/dL (74-106); PHOSPHOROUS 2.3 mg/dL (2.5-4.9)
[2017-05-29] MEDS ORDERED: POTASSIUM CHLORIDE TABS 20 MEQ TABLET.ER (FP) PO SCH (10:15)
--- NOTE | 2017-05-29 11:05 | PN ---
Progress Note, Physician History of Present Illness: PULMONARY ALERT,NAD,ON NASAL CANNULA,FEEL WEAK - Current Medication List Current Medications: Active Medications Amlodipine Besylate (Norvasc -) 10 mg PO DAILY [facility] Last Admin: 05/29/17 09:46 Dose: 10 mg Digoxin (Lanoxin -) 0.125 mg PO DAILY [facility] Last Admin: 05/29/17 09:42 Dose: 0.125 mg Fluoxetine HCl (Prozac -) 10 mg PO DAILY [facility] Last Admin: 05/29/17 09:46 Dose: 10 mg Heparin Sodium (Porcine) (Heparin -) 1,000 unit IVPUSH PRN PRN PRN Reason: Heparin Last Admin: 05/28/17 09:15 Dose: 1,000 unit Heparin Sodium (Porcine) (Heparin -) 3,500 unit IVPUSH PRN PRN PRN Reason: Heparin CEFTRIAXONE 1 G/50 ML PREMIX (Ceftriaxone 1 Gm-D5w Bag) 50 mls @ 100 mls/hr IVPB DAILY [facility] Last Admin: 05/29/17 09:42 Dose: 100 mls/hr Heparin Sodium (Porcine) 25, (000 unit/ Sodium Chloride) 500 mls @ 16 mls/hr IV TITR THANH; 800 UNIT/HR PRN Reason: Protocol Last Admin: 05/29/17 08:34 Dose: 800 unit/hr, 16 mls/hr Immune Globulin (Gamunex-C) 25 gm IVPB Q24H [facility] Stop: 05/31/17 20:01 Last Admin: 05/28/17 23:07 Dose: 25 gm Insulin Aspart (Novolog Vial Sliding Scale -) 1 vial SQ Q6HPO THANH PRN Reason: Protocol Last Admin: 05/29/17 00:31 Dose: Not Given Metoprolol Tartrate (Lopressor -) 37.5 mg PO BID [facility] Last Admin: 05/29/17 09:43 Dose: 37.5 mg Ondansetron HCl (Zofran -) 8 mg PO Q8H PRN PRN Reason: NAUSEA Last Admin: 05/29/17 08:44 Dose: 8 mg Potassium Chloride (K-Dur -) 20 meq PO BID [facility] Stop: 05/30/17 10:01 Pyridostigmine [place] (Mestinon -) 60 mg PO TID [facility] Last Admin: 05/28/17 22:16 Dose: Not Given - Objective Vital Signs: Vital Signs Temperature 97.5 F L 05/29/17 01:45 Pulse Rate 69 05/29/17 09:42 Respiratory Rate 18 05/29/17 02:45 Blood Pressure 158/72 05/29/17 02:45 O2 Sat by Pulse Oximetry (%) 98 05/29/17 02:37 Constitutional: Yes: Well Nourished, Calm Eyes: Yes: WNL HENT: Yes: WNL Neck: Yes: WNL Cardiovascular: Yes: Pulse Irregular, S1, S2 Respiratory: Yes: CTA Bilaterally Gastrointestinal: Yes: Normal Bowel Sounds, Soft Extremities: Yes: WNL Edema: No Labs: CBC, BMP 05/29/17 05:20 05/29/17 05:20 INR, PTT INR 0.88 (0.82-1.09) 05/26/17 10:35 Problem List - Problems (1) Shortness of breath Code(s): R06.02 - SHORTNESS OF BREATH (2) Acute hypercapnic respiratory failure Code(s): J96.02 - ACUTE RESPIRATORY FAILURE WITH HYPERCAPNIA Assessment/Plan Problem List - Problems (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
--- NOTE | 2017-05-29 12:21 | PN ---
Progress Note, Physician History of Present Illness: More awake and alert Complains of nausea No fever/ chills Denies dyspnea/ chest pain/ cough WBC trending downward - Current Medication List Current Medications: Active Medications Amlodipine Besylate (Norvasc -) 10 mg PO DAILY [facility] Last Admin: 05/29/17 09:46 Dose: 10 mg Digoxin (Lanoxin -) 0.125 mg PO DAILY [facility] Last Admin: 05/29/17 09:42 Dose: 0.125 mg Fluoxetine HCl (Prozac -) 10 mg PO DAILY [facility] Last Admin: 05/29/17 09:46 Dose: 10 mg Heparin Sodium (Porcine) (Heparin -) 1,000 unit IVPUSH PRN PRN PRN Reason: Heparin Last Admin: 05/28/17 09:15 Dose: 1,000 unit Heparin Sodium (Porcine) (Heparin -) 3,500 unit IVPUSH PRN PRN PRN Reason: Heparin CEFTRIAXONE 1 G/50 ML PREMIX (Ceftriaxone 1 Gm-D5w Bag) 50 mls @ 100 mls/hr IVPB DAILY [facility] Last Admin: 05/29/17 09:42 Dose: 100 mls/hr Heparin Sodium (Porcine) 25, (000 unit/ Sodium Chloride) 500 mls @ 16 mls/hr IV TITR THANH; 800 UNIT/HR PRN Reason: Protocol Last Admin: 05/29/17 08:34 Dose: 800 unit/hr, 16 mls/hr Immune Globulin (Gamunex-C) 25 gm IVPB Q24H [facility] Stop: 05/31/17 20:01 Last Admin: 05/28/17 23:07 Dose: 25 gm Insulin Aspart (Novolog Vial Sliding Scale -) 1 vial SQ Q6HPO THANH PRN Reason: Protocol Last Admin: 05/29/17 11:36 Dose: Not Given Metoprolol Tartrate (Lopressor -) 37.5 mg PO BID [facility] Last Admin: 05/29/17 09:43 Dose: 37.5 mg Ondansetron HCl (Zofran -) 8 mg PO Q8H PRN PRN Reason: NAUSEA Last Admin: 05/29/17 08:44 Dose: 8 mg Potassium Chloride (K-Dur -) 20 meq PO BID [facility] Stop: 05/30/17 10:01 Last Admin: 05/29/17 11:31 Dose: 20 meq Pyridostigmine [place] (Mestinon -) 60 mg PO TID [facility] Last Admin: 05/28/17 22:16 Dose: Not Given - Objective Vital Signs: Vital Signs Temperature 98.2 F 05/29/17 09:00 Pulse Rate 69 05/29/17 09:42 Respiratory Rate 18 05/29/17 09:00 Blood Pressure 171/70 05/29/17 09:00 O2 Sat by Pulse Oximetry (%) 99 05/29/17 09:00 Constitutional: Yes: No Distress Cardiovascular: Yes: Regular Rate and Rhythm, S1, S2 Respiratory: Yes: Diminished Gastrointestinal: Yes: Normal Bowel Sounds, Soft Labs: CBC, BMP 05/29/17 05:20 05/29/17 05:20 INR, PTT INR 0.88 (0.82-1.09) 05/26/17 10:35 Assessment/Plan Acute exacerbation, Myasthenia Gravis ? Secondary to infection ( gastroenteritis) Acute gastroenteritis Leukocytosis improved Continue empiric ceftriaxone
[2017-05-29 13:02] LABS: CPK 77 IU/L (26-192); TROPONIN I 0.32 ng/ml (0.00-0.05)
[2017-05-29] MEDS: predniSONE 20 MG TABLET (UD) PO SCH (13:41)
[2017-05-29 14:00] LABS: TROPONIN I 0.35 ng/ml (0.00-0.05)
[2017-05-29] MEDS: PYRIDOSTIGMINE BROMIDE 60 MG TABLET PO SCH ×2 (14:32→22:01)
--- NOTE | 2017-05-29 14:38 | EKG ---
Test Reason : Blood Pressure : / mmHG Vent. Rate : 107 BPM Atrial Rate : 096 BPM P-R Int : 000 ms QRS Dur : 086 ms QT Int : 340 ms P-R-T Axes : 000 006 223 degrees QTc Int : 453 ms ATRIAL FIBRILLATION WITH RAPID VENTRICULAR RESPONSE MODERATE VOLTAGE CRITERIA FOR LVH, MAY BE NORMAL VARIANT MARKED ST ABNORMALITY, POSSIBLE LATERAL SUBENDOCARDIAL INJURY ABNORMAL ECG WHEN COMPARED WITH ECG OF 26-MAY-2017 17:28, ATRIAL FIBRILLATION HAS REPLACED SINUS RHYTHM VENT. RATE HAS INCREASED BY 40 BPM Confirmed by CHARLOTTE TREVIÑO, ([id number]) on 05/29/2017 2:37:36 PM Referred By: Confirmed By:SARA PORTER MD
--- NOTE | 2017-05-29 15:38 | PN ---
Progress Note, [employer] - Note Progress Note: Selected Entries 05/28/17 05/28/17 05/28/17 02:00 04:00 10:00 Breakfast Lunch Temperature 98.5 F 98.5 F 98.6 F 05/28/17 05/28/17 05/28/17 13:59 18:00 21:00 Breakfast Lunch Temperature 97.6 F 98.5 F 97.5 F L 05/28/17 05/28/17 05/29/17 23:00 23:30 01:00 Breakfast Lunch Temperature 98.1 F 97.3 F L 97.2 F L 05/29/17 05/29/17 05/29/17 01:45 09:00 11:16 Breakfast 25% Lunch Temperature 97.5 F L 98.2 F 05/29/17 05/29/17 05/29/17 13:00 13:08 14:30 Breakfast Lunch 25% Temperature 98.6 F 98.8 F Accepting some Ensure (regular vs compact whih is nectar thick) Having ice chips, with occasional cough after intake. Responsive cough with sip of thin joon jayro. Tongue with thick coating. c/o belching Suggest scrupulous mouth care/ r/o candidiasis rec: mouth care R/o candidiasis Continue dysphagia puree and nectar thick liquid. Consider Magic cup/Ensure compact MBS to r/o aspiration and upgrade diet to most liberal diet pt can tolerate. If thrush, medical mgmt and defer MBS until treated
[2017-05-29] MEDS ORDERED: POTASSIUM PHOSPHATE 30 MM in SODIUM CHLORIDE 250 ML IVPB ONE (18:08)
--- NOTE | 2017-05-29 18:11 | PN ---
Physical Exam: SUBJECTIVE: Patient seen and examined. Pt c/o feeling weak, nauseous, with continued diarrhea. Pt denies fever, chills, sob. No events overnight. OBJECTIVE: Vital Signs Period Temp Pulse Resp BP Sys/Coulter Pulse Ox Last 24 Hr 97.2 F-98.8 F 50-80 18-20 133-173/57-72 95-99 GENERAL: The patient is awake, alert, and fully oriented, in no acute distress. On nasal cannula with 3L O2. LUNGS: Breath sounds equal, clear to auscultation bilaterally, weaker inspiration than yesterday noted. HEART: 2/6 holosystolic murmur at Left upper sternal border appreciated. Regular rate and rhythm. EXTREMITIES: Warm, well-perfused, no edema. PSYCH: Normal mood, normal affect. SKIN: Warm, dry, normal turgor, no rashes or lesions noted Laboratory Results - last 24 hr 05/26/17 05/27/17 05/27/17 22:20 03:44 12:55 WBC RBC Hgb Hct MCV MCH MCHC RDW Plt Count MPV PTT (Actin FS) Sodium Potassium Chloride Carbon Dioxide Anion Gap BUN Creatinine POC Glucometer 91.50958 127.88927 218.02065 Random Glucose Calcium Phosphorus Magnesium Creatine Kinase Troponin I 05/27/17 05/27/17 05/28/17 19:12 20:56 12:52 WBC RBC Hgb Hct MCV MCH MCHC RDW Plt Count MPV PTT (Actin FS) Sodium Potassium Chloride Carbon Dioxide Anion Gap BUN Creatinine POC Glucometer 172.88708 168.86875 [phone] Random Glucose Calcium Phosphorus Magnesium Creatine Kinase Troponin I 05/28/17 05/28/17 05/28/17 16:05 16:05 18:42 WBC RBC Hgb Hct MCV MCH MCHC RDW Plt Count MPV PTT (Actin FS) Sodium Potassium 3.4 L Chloride Carbon Dioxide Anion Gap BUN Creatinine POC Glucometer 84.32730 Random Glucose Calcium Phosphorus 4.2 D Magnesium 2.3 D Creatine Kinase Troponin I 05/29/17 05/29/17 05/29/17 00:27 05:20 05:20 WBC 13.7 H D RBC 4.51 Hgb 13.4 Hct 40.4 MCV 89.6 MCH 29.7 MCHC 33.1 RDW 13.1 Plt Count 206 MPV 9.5 PTT (Actin FS) 78.0 H D Sodium Potassium Chloride Carbon Dioxide Anion Gap BUN Creatinine POC Glucometer 199 Random Glucose Calcium Phosphorus Magnesium Creatine Kinase Troponin I 05/29/17 05/29/17 05/29/17 05:20 05:55 11:35 WBC RBC Hgb Hct MCV MCH MCHC RDW Plt Count MPV PTT (Actin FS) Sodium 146 H Potassium 3.4 L Chloride 107 Carbon Dioxide 30 Anion Gap 9 BUN 13 D Creatinine 0.6 POC Glucometer 133 155 Random Glucose 136 H Calcium 8.0 L Phosphorus 2.3 L D Magnesium 2.0 Creatine Kinase 77 Troponin I 0.32 H 05/29/17 05/29/17 12:15 16:50 WBC RBC Hgb Hct MCV MCH MCHC RDW Plt Count MPV PTT (Actin FS) Sodium Potassium Chloride Carbon Dioxide Anion Gap BUN Creatinine POC Glucometer 167 Random Glucose Calcium Phosphorus Magnesium Creatine Kinase 67 Troponin I 0.35 H Active Medications Generic Name Dose Route Start Last Admin Trade Name Freq PRN Reason Stop Dose Admin Amlodipine Besylate 10 mg 05/28/17 10:00 05/29/17 09:46 Norvasc - PO 10 mg DAILY THANH Administration Digoxin 0.125 mg 05/28/17 10:00 05/29/17 09:42 Lanoxin - PO 0.125 mg DAILY THANH Administration Fluoxetine HCl 10 mg 05/27/17 10:00 05/29/17 09:46 Prozac - PO 10 mg DAILY THANH Administration Heparin Sodium (Porcine) 1,000 unit 05/26/17 10:04 05/28/17 09:15 Heparin - IVPUSH 1,000 unit PRN PRN Administration Heparin Heparin Sodium (Porcine) 3,500 unit 05/26/17 10:30 Heparin - IVPUSH PRN PRN Heparin CEFTRIAXONE 1 G/50 ML PREMIX 50 mls @ 100 mls/hr 05/27/17 15:00 05/29/17 09: 42 Ceftriaxone 1 Gm-D5w Bag IVPB 100 mls/hr DAILY THANH Administration Heparin Sodium (Porcine) 25, 500 mls @ 16 mls/hr 05/28/17 16:35 05/29/17 17: 00 000 unit/ Sodium Chloride IV 750 unit/hr TITR THANH 15 mls/hr Protocol Administration 800 UNIT/HR Immune Globulin 25 gm 05/27/17 20:00 05/28/17 23:07 Gamunex-C IVPB 05/31/17 20:01 25 gm Q24H THANH Administration Insulin Aspart 1 vial 05/27/17 18:00 05/29/17 11:36 Novolog Vial Sliding Scale - SQ Not Given Q6HPO [facility] Protocol Metoprolol Tartrate 37.5 mg 05/28/17 18:20 05/29/17 09:43 Lopressor - PO 37.5 mg BID THANH Administration Ondansetron HCl 8 mg 05/29/17 08:09 05/29/17 08:44 Zofran - PO 8 mg Q8H PRN Administration NAUSEA Potassium Chloride 20 meq 05/29/17 10:15 05/29/17 11:31 K-Dur - PO 05/30/17 10:01 20 meq BID THANH Administration Prednisone 40 mg 05/29/17 12:45 05/29/17 13:41 Deltasone - PO 40 mg DAILY THANH Administration Pyridostigmine [place] 60 mg 05/26/17 14:00 05/29/17 14:32 Mestinon - PO 60 mg TID THANH Administration IMAGIN05/29/17 CXR -> no acute chest process ASSESSMENT/PLAN: 86yo F with PMH of myesthenia gravis, DM, htn, hld, presents with diarrhea x 2 weeks, found to have new onset afib. 1) new onset afib possibly 2/2 myesthenia crisis - heart rate now controlled - continue Digoxin 0.125mg po daily - avoid Cardizem 2/2 myesthenia gravis - Metoprolol 25mg po BID added -> can increase to TID if needed - continue Heparin drip -> goal PTT = 50-70. - Cardiology following -> consider converting anticoagulation from Heparin drip to Eliquis 5mg po BID 2) acute heart failure, in the setting of afib with RVR - no need to diurese further as pt is euvolemic - daily wts - strict I&O's - watch for volume depletion 3) hypoxic hypercapnic respiratory failure likely 2/2 myesthenia crisis - continue bipap prn, pt uses bipap at night and 3L O2 via nasal cannula during the day 4) hypertroponinemia - trop slightly increased today, continue to trend - no chest pain 5) Myesthenia Gravis - continue Pyridostigmine - Day 3 of IVIG, 3/5 doses - Prednisone 40mg po daily added per Neurology - Neurology following 6) leukocytosis - trending down - blood culture (-) x 48 hrs - Day 3 of IV Cetriaxone for acute gastroenteritis per ID 7) difficulty swallowing - new onset thrush to tongue -> Nystatin swish and swallow added, has to be thickened to nectar consistency - seen by Speech Therapy -> rec continue puree diet with nectar thick liquids -> rec re-eval with MBS after thrush is treated to upgrade diet as tolerated 8) nausea - Zofran prn added 9) htn - continue Norvasc - continue Lopressor, if BP remains high can increase to TID - consider resuming home med of Hydralazine 10) DM - Novolog SSI - BGMs 11) hypokalemia and hypophosphatemia - repleted with KPhos IVPB 30mm - continue to monitor 12) FEN - Fluids: encouraged po intake of thickened liquids - Electrolytes: hypomagnesemia resolved, hypophosphatemia noted, continue to monitor - Nutrition: puree with [place] Thick Liquids per Speech Therapy rec 13) Prophylaxis - DVT ppx with Heparin drip -> monitor for hematuria (hx of bleeding with Heparin) - deconditioning ppx with PT Consult Visit type - Emergency Visit Emergency Visit: Yes ED Registration Date: 05/24/17 Care time: The patient presented to the Emergency Department on the above date and was hospitalized for further evaluation of their emergent condition. - New Patient This patient is new to me today: No - Critical Care Critical Care patient: No
[2017-05-29] MEDS ORDERED: POTASSIUM PHOSPHATE 30 MM in SODIUM CHLORIDE 500 ML IVPB ONE (18:15)
[2017-05-29] MEDS: NYSTATIN 500,000 UNITS/5 ML SUSPENSION PO SCH ×2 (18:53→23:46)
[2017-05-29] MEDS: IMMUNE GLOBULIN (IgG) 20 GM VIAL IVPB SCH (21:15)
[2017-05-30] MEDS: NYSTATIN 500,000 UNITS/5 ML SUSPENSION PO SCH ×4 (06:12→23:58)
[2017-05-30] MEDS: INSULIN SLIDING SCALE (NOVOLOG) 1 VIAL SQ SCH ×3 (06:13→17:14)
[2017-05-30] MEDS: PYRIDOSTIGMINE BROMIDE 60 MG TABLET PO SCH ×4 (06:13→23:06)
--- NOTE | 2017-05-30 07:13 | PN ---
Physical Exam: SUBJECTIVE: Patient seen and examined. Did not use bipap last night. C/o sob after standing to get weighed this morning. Reports swallowing better. Pt denies fever, chills, chest pain, abdominal pain. No events overnight. OBJECTIVE: Vital Signs Period Temp Pulse Resp BP Sys/Coulter Pulse Ox Last 24 Hr 98.2 F-98.8 F 51-82 18-20 133-171/58-80 95-99 GENERAL: The patient is awake, alert, and fully oriented, in no acute distress. On nasal cannula with 3L O2. HEAD: Normal with no signs of trauma. EYES: Extraocular movements intact, sclera anicteric, conjunctiva clear. No ptosis. ENT: Thrush on tongue, moist mucous membranes. NECK: Trachea midline, supple. LUNGS: Breath sounds equal, clear to auscultation bilaterally, no wheezes, no crackles, no accessory muscle use. HEART: 2/6 holosystolic murmur at Left upper sternal border appreciated. Regular rate and rhythm. ABDOMEN: Soft, nontender, nondistended, normoactive bowel sounds, no guarding, no rebound. EXTREMITIES: Warm, well-perfused, no edema. PSYCH: Normal mood, normal affect. SKIN: Warm, dry, normal turgor, no rashes or lesions noted Laboratory Results - last 24 hr 05/26/17 05/27/17 05/27/17 22:20 03:44 12:55 WBC RBC Hgb Hct MCV MCH MCHC RDW Plt Count MPV PTT (Actin FS) Sodium Potassium Chloride Carbon Dioxide Anion Gap BUN Creatinine POC Glucometer 91.00363 127.51527 218.66086 Random Glucose Calcium Phosphorus Magnesium Creatine Kinase Troponin I 05/27/17 05/27/17 05/28/17 19:12 20:56 12:52 WBC RBC Hgb Hct MCV MCH MCHC RDW Plt Count MPV PTT (Actin FS) Sodium Potassium Chloride Carbon Dioxide Anion Gap BUN Creatinine POC Glucometer 172.84533 168.55773 117.24133 Random Glucose Calcium Phosphorus Magnesium Creatine Kinase Troponin I 05/28/17 05/29/17 05/29/17 18:42 05:20 05:20 WBC 13.7 H D RBC 4.51 Hgb 13.4 Hct 40.4 MCV 89.6 MCH 29.7 MCHC 33.1 RDW 13.1 Plt Count 206 MPV 9.5 PTT (Actin FS) 78.0 H D Sodium Potassium Chloride Carbon Dioxide Anion Gap BUN Creatinine POC Glucometer 84.00367 Random Glucose Calcium Phosphorus Magnesium Creatine Kinase Troponin I 05/29/17 05/29/17 05/29/17 05:20 05:55 11:35 WBC RBC Hgb Hct MCV MCH MCHC RDW Plt Count MPV PTT (Actin FS) Sodium 146 H Potassium 3.4 L Chloride 107 Carbon Dioxide 30 Anion Gap 9 BUN 13 D Creatinine 0.6 POC Glucometer 133 155 Random Glucose 136 H Calcium 8.0 L Phosphorus 2.3 L D Magnesium 2.0 Creatine Kinase 77 Troponin I 0.32 H 05/29/17 05/29/17 05/29/17 12:15 16:50 18:52 WBC RBC Hgb Hct MCV MCH MCHC RDW Plt Count MPV PTT (Actin FS) Sodium Potassium Chloride Carbon Dioxide Anion Gap BUN Creatinine POC Glucometer 167 273 Random Glucose Calcium Phosphorus Magnesium Creatine Kinase 67 Troponin I 0.35 H 05/29/17 05/29/17 05/29/17 19:10 19:10 23:45 WBC RBC Hgb Hct MCV MCH MCHC RDW Plt Count MPV PTT (Actin FS) 88.8 H Sodium Potassium Chloride Carbon Dioxide Anion Gap BUN Creatinine POC Glucometer 163 Random Glucose Calcium Phosphorus Magnesium Creatine Kinase Troponin I 0.33 H 05/30/17 05:43 WBC RBC Hgb Hct MCV MCH MCHC RDW Plt Count MPV PTT (Actin FS) Sodium Potassium Chloride Carbon Dioxide Anion Gap BUN Creatinine POC Glucometer 139 Random Glucose Calcium Phosphorus Magnesium Creatine Kinase Troponin I Active Medications Generic Name Dose Route Start Last Admin Trade Name Amy PRN Reason Stop Dose Admin Amlodipine Besylate 10 mg 05/28/17 10:00 05/29/17 09:46 Norvasc - PO 10 mg DAILY THANH Administration Digoxin 0.125 mg 05/28/17 10:00 05/29/17 09:42 Lanoxin - PO 0.125 mg DAILY THANH Administration Fluoxetine HCl 10 mg 05/27/17 10:00 05/29/17 09:46 Prozac - PO 10 mg DAILY THANH Administration Heparin Sodium (Porcine) 1,000 unit 05/26/17 10:04 05/28/17 09:15 Heparin - IVPUSH 1,000 unit PRN PRN Administration Heparin Heparin Sodium (Porcine) 3,500 unit 05/26/17 10:30 Heparin - IVPUSH PRN PRN Heparin CEFTRIAXONE 1 G/50 ML PREMIX 50 mls @ 100 mls/hr 05/27/17 15:00 05/29/17 09: 42 Ceftriaxone 1 Gm-D5w Bag IVPB 100 mls/hr DAILY THANH Administration Heparin Sodium (Porcine) 25, 500 mls @ 16 mls/hr 05/28/17 16:35 05/29/17 17: 00 000 unit/ Sodium Chloride IV 750 unit/hr TITR THANH 15 mls/hr Protocol Administration 800 UNIT/HR Immune Globulin 25 gm 05/27/17 20:00 05/29/17 21:15 Gamunex-C IVPB 05/31/17 20:01 25 gm Q24H THANH Administration Insulin Aspart 1 vial 05/27/17 18:00 05/30/17 06:13 Novolog Vial Sliding Scale - SQ Not Given Q6HPO [facility] Protocol Metoprolol Tartrate 37.5 mg 05/28/17 18:20 05/29/17 22:02 Lopressor - PO 37.5 mg BID THANH Administration Nystatin 500,000 units 05/29/17 18:00 05/30/17 06:12 Nystatin Oral Suspension - PO 500,000 units Q6HPO THANH Administration Ondansetron HCl 8 mg 05/29/17 08:09 05/29/17 08:44 Zofran - PO 8 mg Q8H PRN Administration NAUSEA Prednisone 40 mg 05/29/17 12:45 05/29/17 13:41 Deltasone - PO 40 mg DAILY THANH Administration Pyridostigmine [place] 60 mg 05/26/17 14:00 05/30/17 06:13 Mestinon - PO 60 mg TID THANH Administration ASSESSMENT/PLAN: 86yo F with PMH of myesthenia gravis, DM, htn, hld, presents with diarrhea x 2 weeks, found to have new onset afib. 1) new onset afib possibly 2/2 myesthenia crisis - heart rate now controlled - continue Digoxin and Metoprolol - avoid Cardizem 2/2 myesthenia gravis - continue Heparin drip D/Ronni -> Eliquis 5mg po BID started - Cardiology following -> consider converting anticoagulation from Heparin drip to Eliquis 5mg po BID 2) acute heart failure, in the setting of afib with RVR - no need to diurese further as pt is euvolemic - daily wts - strict I&O's - watch for volume depletion 3) hypoxic hypercapnic respiratory failure likely 2/2 myesthenia crisis - continue bipap prn, pt did not use bipap last night, pt using nasal cannula with 3L O2 4) hypertroponinemia - trop trending down - no chest pain 5) Myesthenia Gravis - continue Pyridostigmine and Prednisone - Day 4 of IVIG, 4/5 doses - Neurology following 6) leukocytosis - stable - blood culture (-) x 72 hrs - Day 4 of IV Cetriaxone for acute gastroenteritis per ID 7) difficulty swallowing - improved - oral thrush -> continue Nystatin swish and swallow - seen by Speech Therapy -> rec continue puree diet with nectar thick liquids -> rec re-eval with MBS after thrush is treated to upgrade diet as tolerated 8) nausea - Zofran prn added 9) htn - continue Norvasc and Lopressor - home med of Hydralazine resumed 10) DM - Novolog SSI - BGMs 11) FEN - Fluids: encouraged po intake of thickened liquids - Electrolytes: hypophosphatemia noted, continue to monitor - Nutrition: puree with [place] Thick Liquids per Speech Therapy rec 12) Prophylaxis - DVT ppx with Heparin drip -> monitor for hematuria (hx of bleeding with Heparin) - deconditioning ppx with PT Consult Visit type - Emergency Visit Emergency Visit: Yes ED Registration Date: 05/24/17 Care time: The patient presented to the Emergency Department on the above date and was hospitalized for further evaluation of their emergent condition. - New Patient This patient is new to me today: No - Critical Care Critical Care patient: No
[2017-05-30 07:57] LABS: MCH 29.7 pg (25.7-33.7); MCHC 33.1 g/dl (32.0-36.0); MEAN CELL VOLUME 89.7 fl (80-96); MEAN PLT VOLUME 9.1 fl (7.5-11.1); PLATELET COUNT 217 K/MM3 (134-434); WHITE BLOOD COUNT 13.7 K/mm3 (4.0-10.0)
[2017-05-30] MEDS ORDERED: PT OWN MED DRAWER 7, Y5N ONE ×3 (09:24→15:19)
[2017-05-30] MEDS: HEPARIN - 25,000 UNIT in SODIUM CHLORIDE 495 ML IV SCH (09:44)
[2017-05-30] MEDS: CEFTRIAXONE 1 G/50 ML PREMIX 50 ML IVPB SCH (10:01)
[2017-05-30] MEDS: predniSONE 20 MG TABLET (UD) PO SCH (10:01)
[2017-05-30] MEDS: DIGOXIN 0.125 MG TABLET (FP) PO SCH (10:02)
[2017-05-30] MEDS: METOPROLOL TARTRATE 25 MG TABLET (FP) PO SCH ×2 (10:02→22:00)
[2017-05-30] MEDS: amLODIPine BESYLATE 10 MG TABLET (FP) PO SCH (10:03)
[2017-05-30] MEDS: FLUoxetine HCL 10 MG CAPSULE (FP) PO SCH (10:03)
[2017-05-30 11:09] LABS: ALBUMIN 2.9 g/dl (3.4-5.0); ANION GAP 7 (8-16); BILIRUBIN,TOTAL 0.2 mg/dL (0.2-1.0); CALCIUM 8.1 mg/dL (8.5-10.1); CO2 33 mmol/L (21-32); CREATININE 0.7 mg/dL (0.55-1.02); GLUCOSE,RANDOM 142 mg/dL (74-106); MAGNESIUM 1.9 mg/dL (1.8-2.4); PHOSPHOROUS 3.3 mg/dL (2.5-4.9); SGOT/AST 46 U/L (15-37); SGPT/ALT 49 U/L (12-78); TOT PROT 8.2 g/dl (6.4-8.2)
[2017-05-30 11:10] LABS: ALK PHOS 108 U/L (45-117)
--- NOTE | 2017-05-30 11:52 | PN ---
Progress Note, CLINICAL SUPPORT TECH - Note Progress Note: Selected Entries 05/29/17 05/29/17 05/29/17 01:00 01:45 09:00 Breakfast Lunch Supper Temperature 97.2 F L 97.5 F L 98.2 F 05/29/17 05/29/17 05/29/17 11:16 13:00 13:08 Breakfast 25% Lunch 25% Supper Temperature 98.6 F 05/29/17 05/29/17 05/29/17 14:30 18:00 19:34 Breakfast Lunch Supper 25% Temperature 98.8 F 98.5 F 05/29/17 05/29/17 05/29/17 21:15 21:35 22:11 Breakfast Lunch Supper Temperature 98.5 F 98.8 F 98.6 F 05/29/17 05/30/17 05/30/17 23:00 01:00 05:00 Breakfast Lunch Supper Temperature 98.6 F 98.3 F 98.5 F 05/30/17 10:41 Breakfast 25% Lunch Supper Temperature Laboratory Tests 05/28/17 05/29/17 05/30/17 05:28 05:20 06:00 WBC 21.3 H 13.7 H D 13.7 H Looking better. Speech more precise. OOB. Eating a little more. Nystatin started 05/29. For MBS on 05/30.
[2017-05-30] MEDS: hydrALAZINE HCL 10 MG TABLET PO SCH ×3 (11:55→21:58)
[2017-05-30] MEDS ORDERED: INSULIN (NOVOLOG) ASPART 100 UNITS/ML 10ML VIAL ONE (12:00)
[2017-05-30] MEDS: NYSTATIN POWDER 100,000 UNITS/GM - 15 GM TOPICAL POWDER TP SCH (13:22)
--- NOTE | 2017-05-30 14:22 | PN ---
Progress Note (short form) - Note Progress Note: Resting in NAD. Feels weak. Had SOB earlier when she was moved. Intake & Output 05/27/17 05/28/17 05/29/17 05/30/17 23:59 23:59 23:59 23:59 Intake Total 168 488 350 800 Output Total 1000 500 850 Balance -832 -12 -500 800 Weight 136 lb 7 oz 137 lb 9.6 oz 138 lb 6.4 oz 137 lb 6.4 oz Last Vital Signs Temp Pulse Resp BP Pulse Ox 97.4 F L 95 H 18 148/66 95 05/30/17 10:00 05/30/17 10:02 05/30/17 10:00 05/30/17 10:00 05/29/17 21:00 Active Medications Amlodipine Besylate (Norvasc -) 10 mg PO DAILY [facility] Last Admin: 05/30/17 10:03 Dose: 10 mg Apixaban (Eliquis -) 5 mg PO BID [facility] Digoxin (Lanoxin -) 0.125 mg PO DAILY [facility] Last Admin: 05/30/17 10:02 Dose: 0.125 mg Fluoxetine HCl (Prozac -) 10 mg PO DAILY [facility] Last Admin: 05/30/17 10:03 Dose: 10 mg Hydralazine HCl (Apresoline -) 10 mg PO BID [facility] Last Admin: 05/30/17 11:55 Dose: 10 mg CEFTRIAXONE 1 G/50 ML PREMIX (Ceftriaxone 1 Gm-D5w Bag) 50 mls @ 100 mls/hr IVPB DAILY [facility] Last Admin: 05/30/17 10:01 Dose: 100 mls/hr Immune Globulin (Gamunex-C) 25 gm IVPB Q24H [facility] Stop: 05/31/17 20:01 Last Admin: 05/29/17 21:15 Dose: 25 gm Insulin Aspart (Novolog Vial Sliding Scale -) 1 vial SQ Q6HPO [facility] PRN Reason: Protocol Last Admin: 05/30/17 11:54 Dose: 2 units Metoprolol Tartrate (Lopressor -) 37.5 mg PO BID [facility] Last Admin: 05/30/17 10:02 Dose: 37.5 mg Nystatin (Nystatin Oral Suspension -) 500,000 units PO Q6HPO [facility] Last Admin: 05/30/17 12:03 Dose: 500,000 units Nystatin (Nystop Powder -) 1 applic TP DAILY [facility] Ondansetron HCl (Zofran -) 8 mg PO Q8H PRN PRN Reason: NAUSEA Last Admin: 05/29/17 08:44 Dose: 8 mg Prednisone (Deltasone -) 40 mg PO DAILY [facility] Last Admin: 05/30/17 10:01 Dose: 40 mg Pyridostigmine [place] (Mestinon -) 60 mg PO TID [facility] Last Admin: 05/30/17 06:13 Dose: 60 mg Constitutional: Yes: NAD Eyes: Yes: WNL HENT: Yes: WNL Neck: Yes: WNL Cardiovascular: Yes: Pulse Irregular, S1, S2 Respiratory: Yes: Few scattered rhonchi Gastrointestinal: Yes: Normal Bowel Sounds, Soft Extremities: Yes: WNL Edema: No Labs: Laboratory Results - last 24 hr 05/29/17 05/29/17 05/29/17 16:50 18:52 19:10 WBC RBC Hgb Hct MCV MCH MCHC RDW Plt Count MPV PTT (Actin FS) Sodium Potassium Chloride Carbon Dioxide Anion Gap BUN Creatinine Creat Clearance w eGFR POC Glucometer 167 273 Random Glucose Calcium Phosphorus Magnesium Total Bilirubin AST ALT Alkaline Phosphatase Troponin I 0.33 H Total Protein Albumin 05/29/17 05/29/17 05/30/17 19:10 23:45 05:43 WBC RBC Hgb Hct MCV MCH MCHC RDW Plt Count MPV PTT (Actin FS) 88.8 H Sodium Potassium Chloride Carbon Dioxide Anion Gap BUN Creatinine Creat Clearance w eGFR POC Glucometer 163 139 Random Glucose Calcium Phosphorus Magnesium Total Bilirubin AST ALT Alkaline Phosphatase Troponin I Total Protein Albumin 05/30/17 05/30/17 05/30/17 06:00 06:00 06:00 WBC 13.7 H RBC 4.56 Hgb 13.5 Hct 40.9 MCV 89.7 MCH 29.7 MCHC 33.1 RDW 13.0 Plt Count 217 MPV 9.1 PTT (Actin FS) 97.0 H Sodium 146 H Potassium 3.8 Chloride 106 Carbon Dioxide 33 H Anion Gap 7 L BUN 15 Creatinine 0.7 Creat Clearance w eGFR > 60 POC Glucometer Random Glucose 142 H Calcium 8.1 L Phosphorus 3.3 D Magnesium 1.9 Total Bilirubin 0.2 D AST 46 H D ALT 49 D Alkaline Phosphatase 108 Troponin I Total Protein 8.2 D Albumin 2.9 L 11/09/17 11:53 WBC RBC Hgb Hct MCV MCH MCHC RDW Plt Count MPV PTT (Actin FS) Sodium Potassium Chloride Carbon Dioxide Anion Gap BUN Creatinine Creat Clearance w eGFR POC Glucometer 236 Random Glucose Calcium Phosphorus Magnesium Total Bilirubin AST ALT Alkaline Phosphatase Troponin I Total Protein Albumin Problem List - Problems (1) Shortness of breath Code(s): R06.02 - SHORTNESS OF BREATH (2) Acute hypercapnic respiratory failure Code(s): J96.02 - ACUTE RESPIRATORY FAILURE WITH HYPERCAPNIA Assessment/Plan Problem List - Problems (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
--- NOTE | 2017-05-30 16:37 | EKG ---
Test Reason : Blood Pressure : / mmHG Vent. Rate : 059 BPM Atrial Rate : 059 BPM P-R Int : 160 ms QRS Dur : 094 ms QT Int : 366 ms P-R-T Axes : 011 -08 185 degrees QTc Int : 362 ms SINUS BRADYCARDIA LEFT VENTRICULAR HYPERTROPHY WITH REPOLARIZATION ABNORMALITY ABNORMAL ECG WHEN COMPARED WITH ECG OF 28-MAY-2017 10:28, T WAVE INVERSION LESS EVIDENT IN INFERIOR LEADS Confirmed by KRZYSZTOF TREVIÑO, HOLLY ([id number]) on 05/30/2017 4:37:31 PM Referred By: EMERALD RANGEL DR Confirmed By:HOLLY BLANKENSHIP MD
--- NOTE | 2017-05-30 17:52 | PN ---
Progress Note (short form) - Note Progress Note: FU : day 4 IVIG feels stronger today was able to walk with PT speech a little more clear +nausea evel Of Consciousness: Yes: Alert, Oriented to Person, Oriented to Place, Oriented to Time Eyes: Yes: BEBE (Somewhat hypophonic) Dominant Hand: Right Mini Mental Exam: Awake, alert, follows all commands, Cranial Nerves II-XII Intact: slight dysconjugate gaze though EOMI, slight head drop, Gag: Present DTR's: 0 Left Achilles, 0 Right Achilles, 1+ Left Bicep, 1+ Right Bicep, 1+ Left Tricep, 1+ Right Tricep, 1+ Left Brachioradialis, 1+ Right Brachioradialis Babinski: Absent Response to light touch: Normal Response to pain prick: Normal Response to vibration: Normal Motor Strength: 5/5:weakness deltoid R >L 4/5 , TR R 4+/5, L 5/5, LE 5/5 Gait: Deferred Vital Signs Temperature 97.5 F L 05/30/17 14:10 Pulse Rate 56 L 05/30/17 14:10 Respiratory Rate 18 05/30/17 14:10 Blood Pressure 143/57 05/30/17 14:10 O2 Sat by Pulse Oximetry (%) 97 05/30/17 09:00 Assessment/Plan Pt. with hx. of MG x1 year, stable on Mestinon 60mg tid since her last Myasthenic crisis in 02/04. She now presents with diarrhea x 2 weeks-though she states may have started even bf being on mestinon( will consider tapering dose when she is more stable) new onset Afib appears to have MG exacerbation , more bulbar ; ? related to underlying infection On IVIG day #4/5 on prednisone 40mg poqd ( DM , watch sugars)-- will do slow taper over month consider GI consult for diarhea, ? esophageal issue beyond MG Dr Simons
--- NOTE | 2017-05-30 20:01 | PN ---
Teaching Attending Note Name of Resident: Addie Caro ATTENDING PHYSICIAN STATEMENT I saw and evaluated the patient. I reviewed the resident's note and discussed the case with the resident. I agree with the resident's findings and plan as documented. SUBJECTIVE: Patient feels better with no acute distress. OBJECTIVE: Vital Signs Temperature 98.1 F 05/30/17 18:00 Pulse Rate 67 05/30/17 18:00 Respiratory Rate 18 05/30/17 18:00 Blood Pressure 164/66 05/30/17 18:00 O2 Sat by Pulse Oximetry (%) 95 05/30/17 17:15 CBCD WBC 13.7 K/mm3 (4.0-10.0) H 05/30/17 06:00 RBC 4.56 M/mm3 (3.60-5.2) 05/30/17 06:00 Hgb 13.5 GM/dL (10.7-15.3) 05/30/17 06:00 Hct 40.9 % (32.4-45.2) 05/30/17 06:00 MCV 89.7 fl (80-96) 05/30/17 06:00 MCHC 33.1 g/dl (32.0-36.0) 05/30/17 06:00 RDW 13.0 % (11.6-15.6) 05/30/17 06:00 Plt Count 217 K/MM3 (134-434) 05/30/17 06:00 MPV 9.1 fl (7.5-11.1) 05/30/17 06:00 CMP Sodium 146 mmol/L (136-145) H 05/30/17 06:00 Potassium 3.8 mmol/L (3.5-5.1) 05/30/17 06:00 Chloride 106 mmol/L (98-107) 05/30/17 06:00 Carbon Dioxide 33 mmol/L (21-32) H 05/30/17 06:00 Anion Gap 7 (8-16) L 05/30/17 06:00 BUN 15 mg/dL (7-18) 05/30/17 06:00 Creatinine 0.7 mg/dL (0.55-1.02) 05/30/17 06:00 Creat Clearance w eGFR > 60 (>60) 05/30/17 06:00 Random Glucose 142 mg/dL (74-106) H 05/30/17 06:00 Calcium 8.1 mg/dL (8.5-10.1) L 05/30/17 06:00 Total Bilirubin 0.2 mg/dL (0.2-1.0) D 05/30/17 06:00 AST 46 U/L (15-37) H D 05/30/17 06:00 ALT 49 U/L (12-78) D 05/30/17 06:00 Alkaline Phosphatase 108 U/L (45-117) 05/30/17 06:00 Total Protein 8.2 g/dl (6.4-8.2) D 05/30/17 06:00 Albumin 2.9 g/dl (3.4-5.0) L 05/30/17 06:00 CARDIAC ENZYMES Creatine Kinase 67 IU/L (26-192) 05/29/17 12:15 Troponin I 0.33 ng/ml (0.00-0.05) H 05/29/17 19:10 Current Medications Generic Name Dose Route Start Last Admin Trade Name Amy PRN Reason Stop Dose Admin Amlodipine Besylate 10 mg 05/28/17 10:00 05/30/17 10:03 Norvasc - PO 10 mg DAILY THANH Administration Apixaban 5 mg 05/30/17 22:00 Eliquis - PO BID THANH Digoxin 0.125 mg 05/28/17 10:00 05/30/17 10:02 Lanoxin - PO 0.125 mg DAILY THANH Administration Fluoxetine HCl 10 mg 05/27/17 10:00 05/30/17 10:03 Prozac - PO 10 mg DAILY THANH Administration Hydralazine HCl 10 mg 05/30/17 09:15 05/30/17 11:55 Apresoline - PO 10 mg BID THANH Administration CEFTRIAXONE 1 G/50 ML PREMIX 50 mls @ 100 mls/hr 05/27/17 15:00 05/30/17 10: 01 Ceftriaxone 1 Gm-D5w Bag IVPB 100 mls/hr DAILY THANH Administration Immune Globulin 25 gm 05/27/17 20:00 05/29/17 21:15 Gamunex-C IVPB 05/31/17 20:01 25 gm Q24H THANH Administration Insulin Aspart 1 vial 05/27/17 18:00 05/30/17 17:14 Novolog Vial Sliding Scale - SQ Not Given Q6HPO [facility] Protocol Metoprolol Tartrate 37.5 mg 05/28/17 18:20 05/30/17 10:02 Lopressor - PO 37.5 mg BID THANH Administration Nystatin 500,000 units 05/29/17 18:00 05/30/17 17:58 Nystatin Oral Suspension - PO 500,000 units Q6HPO THANH Administration Nystatin 1 applic 05/30/17 11:00 05/30/17 13:22 Nystop Powder - TP 1 applic DAILY THANH Administration Ondansetron HCl 8 mg 05/29/17 08:09 05/29/17 08:44 Zofran - PO 8 mg Q8H PRN Administration NAUSEA Prednisone 40 mg 05/29/17 12:45 05/30/17 10:01 Deltasone - PO 40 mg DAILY THANH Administration Pyridostigmine [place] 60 mg 05/26/17 14:00 05/30/17 16:20 Mestinon - PO 60 mg TID THANH Administration Home Medications Medication Instructions Recorded Amlodipine Besylate/Benazepril 1 cap PO BID 05/24/17 [Lotrel 10-20 mg Capsule] Amoxicillin/Potassium Clav 1 each PO DAILY 05/24/17 [Augmentin 875-125 Tablet] Fluoxetine HCl 10 mg PO DAILY 05/24/17 Hydralazine HCl 10 mg PO BID 05/24/17 Metformin HCl [Glucophage] 500 mg PO BID 05/24/17 Pantoprazole Sodium 40 mg PO DAILY 05/24/17 Potassium Chloride 10 meq PO DAILY 05/24/17 Pyridostigmine [Mestinon] 60 mg PO TID 05/24/17 Rosuvastatin [Crestor -] 10 mg PO DAILY 05/24/17 PE: per resident's note ASSESSMENT AND PLAN: Patient is a 86 y/o lady with h/o HTN, DM , recent diagnosis of Myasthenia Gravis , hyperlipidemia who presented with difficulty swallowing and SOB . Now with irregular heart rate # Acute Myasthenia gravis Crisis on pyridostigmine continue , on IVIG daily x 4 /5 days, added Prednisone 40mg po daily per [facility]. # New onset AFib: rate controlled, back to sinus now, continue BB and digoxin as per cardiology for VR control. [id number] sore of 5,On Eliquis now , discontinued heparin gtt. # Acute heart failure : due to RVR. , ECHo withion NL limit . No need to diuress further, patient is Euvolemic. Echocardiogram 05/27/2017: Normal LV systolic function. No regional wall motion abnormalities. Normal RV. No significant valvular abnormalities. # NSTEMI due to demand ischemia in the setting of rapid A fib . No ST changes. Troponin is slightly elevated today. # s/p Acute hypoxic hypercapnic respiratory failure due to MG crisis on Bipap prn. On IVIG continue # HTN Uncontrolled on BB to 37.5 BID, will monitor , will resume her home hydralazine # Leukocytosis : has a recent UTI which was partially treated as out pt . On IV antibiotic continue, Neg C diff, so culture is negative , cont empiric CTX # Difficulty with swallowing , will get [facility] speech therapist to evaluate the patient. DVT Px: Nathan
[2017-05-30] MEDS: IMMUNE GLOBULIN (IgG) 20 GM VIAL IVPB SCH (20:21)
[2017-05-30] MEDS: APIXABAN 5 MG TABLET PO SCH (21:58)
[2017-05-31] MEDS: INSULIN SLIDING SCALE (NOVOLOG) 1 VIAL SQ SCH ×5 (00:15→23:22)
[2017-05-31] MEDS ORDERED: ONDANSETRON 4 MG TABLET PO PRN (03:58)
[2017-05-31] MEDS: PYRIDOSTIGMINE BROMIDE 60 MG TABLET PO SCH ×3 (06:10→21:15)
[2017-05-31] MEDS: NYSTATIN 500,000 UNITS/5 ML SUSPENSION PO SCH ×4 (06:10→23:10)
[2017-05-31 07:21] LABS: MCH 30.1 pg (25.7-33.7); MCHC 33.4 g/dl (32.0-36.0); MEAN CELL VOLUME 90.1 fl (80-96); MEAN PLT VOLUME 9.1 fl (7.5-11.1); PLATELET COUNT 221 K/MM3 (134-434); RDW 12.9 % (11.6-15.6); WHITE BLOOD COUNT 14.1 K/mm3 (4.0-10.0)
[2017-05-31 08:12] LABS: ALBUMIN 2.7 g/dl (3.4-5.0); ALK PHOS 107 U/L (45-117); ANION GAP 3 (8-16); BILIRUBIN,TOTAL 0.6 mg/dL (0.2-1.0); CALCIUM 8.5 mg/dL (8.5-10.1); CO2 37 mmol/L (21-32); CREATININE 0.7 mg/dL (0.55-1.02); GLUCOSE,RANDOM 141 mg/dL (74-106); SGOT/AST 167 U/L (15-37); SGPT/ALT 150 U/L (12-78); TOT PROT 8.5 g/dl (6.4-8.2)
[2017-05-31] MEDS ORDERED: PT OWN MED DRAWER 7, Y5N ONE ×2 (09:05→21:05)
[2017-05-31] MEDS: predniSONE 20 MG TABLET (UD) PO SCH (09:08)
[2017-05-31] MEDS: DIGOXIN 0.125 MG TABLET (FP) PO SCH (09:08)
--- NOTE | 2017-05-31 09:08 | PN ---
Progress Note (short form) - Note Progress Note: FU : day 4 IVIG -- elevated LFTS feels stronger was able to walk with PT yesterday, this AM had diarrhea speech a little more clear +nausea evel Of Consciousness: Yes: Alert, Oriented to Person, Oriented to Place, Oriented to Time Eyes: Yes: BEBE (Somewhat hypophonic) Dominant Hand: Right Mini Mental Exam: Awake, alert, follows all commands, Cranial Nerves II-XII Intact: slight dysconjugate gaze though EOMI, slight head drop, Gag: Present DTR's: 0 Left Achilles, 0 Right Achilles, 1+ Left Bicep, 1+ Right Bicep, 1+ Left Tricep, 1+ Right Tricep, 1+ Left Brachioradialis, 1+ Right Brachioradialis Babinski: Absent Response to light touch: Normal Response to pain prick: Normal Response to vibration: Normal Motor Strength: 5/5:weakness deltoid R >L 4/5 , TR R 4+/5, L 5/5, LE 5/5 Gait: Deferred Vital Signs Temperature 98.2 F 05/31/17 04:47 Pulse Rate 58 L 05/31/17 04:47 Respiratory Rate 21 05/31/17 04:47 Blood Pressure 166/76 05/31/17 04:47 O2 Sat by Pulse Oximetry (%) 97 05/30/17 21:00 CBCD WBC 14.1 K/mm3 (4.0-10.0) H 05/31/17 05:19 RBC 4.41 M/mm3 (3.60-5.2) 05/31/17 05:19 Hgb 13.3 GM/dL (10.7-15.3) 05/31/17 05:19 Hct 39.8 % (32.4-45.2) 05/31/17 05:19 MCV 90.1 fl (80-96) 05/31/17 05:19 MCHC 33.4 g/dl (32.0-36.0) 05/31/17 05:19 RDW 12.9 % (11.6-15.6) 05/31/17 05:19 Plt Count 221 K/MM3 (134-434) 05/31/17 05:19 MPV 9.1 fl (7.5-11.1) 05/31/17 05:19 CMP Sodium 141 mmol/L (136-145) 05/31/17 05:19 Potassium 3.8 mmol/L (3.5-5.1) 05/31/17 05:19 Chloride 101 mmol/L (98-107) 05/31/17 05:19 Carbon Dioxide 37 mmol/L (21-32) H 05/31/17 05:19 Anion Gap 3 (8-16) L 05/31/17 05:19 BUN 15 mg/dL (7-18) 05/31/17 05:19 Creatinine 0.7 mg/dL (0.55-1.02) 05/31/17 05:19 Creat Clearance w eGFR > 60 (>60) 05/31/17 05:19 Calcium 8.5 mg/dL (8.5-10.1) 05/31/17 05:19 Total Bilirubin 0.6 mg/dL (0.2-1.0) D 05/31/17 05:19 AST 167 U/L (15-37) H D 05/31/17 05:19 ALT 150 U/L (12-78) H D 05/31/17 05:19 Alkaline Phosphatase 107 U/L (45-117) 05/31/17 05:19 Total Protein 8.5 g/dl (6.4-8.2) H 05/31/17 05:19 Albumin 2.7 g/dl (3.4-5.0) L 05/31/17 05:19 Assessment/Plan Pt. with hx. of MG x1 year, stable on Mestinon 60mg tid since her last Myasthenic crisis in 02/04. She now presents with diarrhea x 2 weeks-though she states may have started even bf being on mestinon( will consider tapering dose when she is more stable) new onset Afib appears to have MG exacerbation , more bulbar ; ? related to underlying infection On IVIG day #4/5--given elevated LFTS will DC IVIG ( ? cause) on prednisone 40mg poqd ( DM , watch sugars)-- will do slow taper over month , she will follow with outpt [facility] at [facility] reduce mestinon 30TID -- ? diarhea cause FU LFTS Dr Simons
[2017-05-31] MEDS: amLODIPine BESYLATE 10 MG TABLET (FP) PO SCH (09:09)
[2017-05-31] MEDS: CEFTRIAXONE 1 G/50 ML PREMIX 50 ML IVPB SCH (09:09)
[2017-05-31] MEDS: APIXABAN 5 MG TABLET PO SCH ×2 (09:09→21:14)
[2017-05-31] MEDS: hydrALAZINE HCL 10 MG TABLET PO SCH ×2 (09:09→21:14)
[2017-05-31] MEDS: METOPROLOL TARTRATE 25 MG TABLET (FP) PO SCH ×2 (09:12→21:14)
[2017-05-31] MEDS: FLUoxetine HCL 10 MG CAPSULE (FP) PO SCH (09:14)
--- NOTE | 2017-05-31 10:09 | PN ---
Physical Exam: SUBJECTIVE: Patient seen and examined. Pt reports needing to use bipap when she feels upset/anxious. Pt reports having diarrhea last night, which caused her to feel upset, which caused her to have to use the bipap. Pt reports no difficulty swallowing and no nausea today. Pt denies fever, chills, chest pain , abdominal pain. No events overnight. OBJECTIVE: Vital Signs Period Temp Pulse Resp BP Sys/Coulter Pulse Ox Last 24 Hr 97.4 F-98.2 F 52-95 18-21 143-166/53-76 95-97 GENERAL: The patient is awake, alert, and fully oriented, mildly anxious. On nasal cannula this morning. HEAD: Normal with no signs of trauma. ENT: Thrush almost entirely cleared. Moist mucous membranes. LUNGS: Breath sounds equal, clear to auscultation bilaterally, no wheezes, no crackles, no accessory muscle use. HEART: Regular rate and rhythm, +S1/S2. ABDOMEN: Soft, nontender, nondistended, normoactive bowel sounds, no guarding, no rebound, no masses. EXTREMITIES: Warm, well-perfused, no edema. PSYCH: Normal mood, normal affect. SKIN: Warm, dry, normal turgor, no rashes or lesions noted Laboratory Results - last 24 hr 05/30/17 05/30/17 05/30/17 06:00 11:53 17:13 WBC RBC Hgb Hct MCV MCH MCHC RDW Plt Count MPV PTT (Actin FS) Sodium 146 H Potassium 3.8 Chloride 106 Carbon Dioxide 33 H Anion Gap 7 L BUN 15 Creatinine 0.7 Creat Clearance w eGFR > 60 POC Glucometer 236 178 Random Glucose 142 H Calcium 8.1 L Phosphorus 3.3 D Magnesium 1.9 Total Bilirubin 0.2 D AST 46 H D ALT 49 D Alkaline Phosphatase 108 Total Protein 8.2 D Albumin 2.9 L 05/30/17 05/31/17 05/31/17 22:24 05:19 05:19 WBC 14.1 H RBC 4.41 Hgb 13.3 Hct 39.8 MCV 90.1 MCH 30.1 MCHC 33.4 RDW 12.9 Plt Count 221 MPV 9.1 PTT (Actin FS) 27.8 D Sodium Potassium Chloride Carbon Dioxide Anion Gap BUN Creatinine Creat Clearance w eGFR POC Glucometer 169 Random Glucose Calcium Phosphorus Magnesium Total Bilirubin AST ALT Alkaline Phosphatase Total Protein Albumin 05/31/17 05/31/17 05:19 05:45 WBC RBC Hgb Hct MCV MCH MCHC RDW Plt Count MPV PTT (Actin FS) Sodium 141 Potassium 3.8 Chloride 101 Carbon Dioxide 37 H Anion Gap 3 L BUN 15 Creatinine 0.7 Creat Clearance w eGFR > 60 POC Glucometer 137 Random Glucose 141 H Calcium 8.5 Phosphorus Magnesium Total Bilirubin 0.6 D AST 167 H D ALT 150 H D Alkaline Phosphatase 107 Total Protein 8.5 H Albumin 2.7 L Active Medications Generic Name Dose Route Start Last Admin Trade Name Freq PRN Reason Stop Dose Admin Amlodipine Besylate 10 mg 05/28/17 10:00 05/31/17 09:09 Norvasc - PO 10 mg DAILY THANH Administration Apixaban 5 mg 05/30/17 22:00 05/31/17 09:09 Eliquis - PO 5 mg BID THANH Administration Digoxin 0.125 mg 05/28/17 10:00 05/31/17 09:08 Lanoxin - PO 0.125 mg DAILY THANH Administration Fluoxetine HCl 10 mg 05/27/17 10:00 05/31/17 09:14 Prozac - PO 10 mg DAILY THANH Administration Hydralazine HCl 10 mg 05/30/17 09:15 05/31/17 09:09 Apresoline - PO 10 mg BID THANH Administration CEFTRIAXONE 1 G/50 ML PREMIX 50 mls @ 100 mls/hr 05/27/17 15:00 05/31/17 09: 09 Ceftriaxone 1 Gm-D5w Bag IVPB 100 mls/hr DAILY THANH Administration Immune Globulin 25 gm 05/27/17 20:00 05/30/17 20:21 Gamunex-C IVPB 05/31/17 20:01 25 gm Q24H THANH Administration Insulin Aspart 1 vial 05/27/17 18:00 05/31/17 06:23 Novolog Vial Sliding Scale - SQ Not Given Q6HPO [facility] Protocol Metoprolol Tartrate 37.5 mg 05/28/17 18:20 05/31/17 09:12 Lopressor - PO 37.5 mg BID THANH Administration Nystatin 500,000 units 05/29/17 18:00 05/31/17 06:10 Nystatin Oral Suspension - PO 500,000 units Q6HPO THANH Administration Nystatin 1 applic 05/30/17 11:00 05/30/17 13:22 Nystop Powder - TP 1 applic DAILY THANH Administration Ondansetron HCl 8 mg 05/31/17 03:58 Zofran - PO Q8H PRN NAUSEA Prednisone 40 mg 05/29/17 12:45 05/31/17 09:08 Deltasone - PO 40 mg DAILY THANH Administration Pyridostigmine [place] 60 mg 05/26/17 14:00 05/31/17 06:10 Mestinon - PO 60 mg TID THANH Administration ASSESSMENT/PLAN: 86yo F with PMH of myesthenia gravis, DM, htn, hld, presents with diarrhea x 2 weeks, found to have new onset afib. 1) new onset afib possibly 2/2 myesthenia crisis - heart rate now controlled - Digoxin D/Ronni per Cardiology - Metoprolol decreased to 25mg PO BID - avoid Cardizem 2/2 myesthenia gravis - continue Eliquis 5mg po BID started 2) acute heart failure, in the setting of afib with RVR - no need to diurese further as pt is euvolemic - daily wts - strict I&O's - watch for volume depletion 3) hypoxic hypercapnic respiratory failure likely 2/2 myesthenia crisis - continue bipap prn 4) Myesthenia Gravis - Pyridostigmine reduced to 30mg TID 2/2 diarrhea - continue Prednisone - hyperglycemia likely 2/2 Prednisone - IVIG D/Ronni - Neurology following 5) leukocytosis - stable - blood culture (-) x 96 hrs - Day 5 of IV Cetriaxone 6) difficulty swallowing - improved - oral thrush -> continue Nystatin swish and swallow - seen by Speech Therapy -> rec continue puree diet with nectar thick liquids -> MBS scheduled for today to assess if diet can be upgraded 7) htn - continue Norvasc and Hydralazine - Lopressor reduced to 25mg po BID 8) DM - Novolog SSI - BGMs 9) FEN - Fluids: encouraged po intake of thickened liquids - Electrolytes: continue to monitor - Nutrition: puree with [place] Thick Liquids per Speech Therapy rec 10) Prophylaxis - DVT ppx with Eliquis - deconditioning ppx with PT Consult Visit type - Emergency Visit Emergency Visit: Yes ED Registration Date: 05/24/17 Care time: The patient presented to the Emergency Department on the above date and was hospitalized for further evaluation of their emergent condition. - New Patient This patient is new to me today: No - Critical Care Critical Care patient: No
[2017-05-31] MEDS ORDERED: METOPROLOL TARTRATE 25 MG TABLET (FP) PO SCH (10:30)
[2017-05-31] MEDS: NYSTATIN POWDER 100,000 UNITS/GM - 15 GM TOPICAL POWDER TP SCH (10:39)
--- NOTE | 2017-05-31 10:48 | PN ---
Progress Note, [employer] - Note Progress Note: Selected Entries 05/30/17 05/30/17 05/30/17 01:00 05:00 10:00 Breakfast Lunch Supper Temperature 98.3 F 98.5 F 97.4 F L 05/30/17 05/30/17 05/30/17 10:41 14:10 15:08 Breakfast 25% Lunch 25% Supper Temperature 97.5 F L 05/30/17 05/30/17 05/30/17 18:00 19:30 20:49 Breakfast Lunch Supper 25% Temperature 98.1 F 97.9 F 05/31/17 05/31/17 05/31/17 02:00 04:47 10:00 Breakfast Lunch Supper Temperature 97.8 F 98.2 F 98.3 F Laboratory Tests 05/30/17 05/31/17 06:00 05:19 WBC 13.7 H 14.1 H Pt reports diarrhea last night,did not sleep well. MBS to upgrade diet to most liberal diet pt can tolerate. Case reviewed with staff.
--- NOTE | 2017-05-31 10:48 | PN ---
Progress Note, Physician Chief Complaint: Patient was seen again for sinus bradycardia. Tele record reviewed. Mild sinus bradycardia with short pauses. No recurrent atrial fibrillation. Patient appears comfortable at the time of exam. She had diarrhea last night. She still feels weak. No SOB, chest pain, palpitation or dizziness. History of Present Illness: 86 year old woman with a PMHx of myasthenia gravis, MDD, HTN, and hyperlipidemia presented with diarrhea for 2 weeks with weight loss. Reports adrenal mass on ct abd in past. Was transferred to MICU for dyspnea and myasthenia. Noted to be in new afib with RVR. No chest pain or palpitations but dyspnea worsening after receiving diltiazem. She received digoxin IV loading and metoprolol. VR control improved. Her troponin is trending up, likely secondary to demand ischemia. She was spontaneously cardioverted to sinus rhythm. She remains in sinus with bradycardia and short pauses while on Metoprolol 37.5 mg BID. Echocardiogram 05/27/2017: Normal LV systolic function. No regional wall motion abnormalities. Normal RV. No significant valvular abnormalities. - Current Medication List Current Medications: Active Medications Amlodipine Besylate (Norvasc -) 10 mg PO DAILY [facility] Last Admin: 05/31/17 09:09 Dose: 10 mg Apixaban (Eliquis -) 5 mg PO BID [facility] Last Admin: 05/31/17 09:09 Dose: 5 mg Digoxin (Lanoxin -) 0.125 mg PO DAILY [facility] Last Admin: 05/31/17 09:08 Dose: 0.125 mg Fluoxetine HCl (Prozac -) 10 mg PO DAILY [facility] Last Admin: 05/31/17 09:14 Dose: 10 mg Hydralazine HCl (Apresoline -) 10 mg PO BID [facility] Last Admin: 05/31/17 09:09 Dose: 10 mg CEFTRIAXONE 1 G/50 ML PREMIX (Ceftriaxone 1 Gm-D5w Bag) 50 mls @ 100 mls/hr IVPB DAILY [facility] Last Admin: 05/31/17 09:09 Dose: 100 mls/hr Immune Globulin (Gamunex-C) 25 gm IVPB Q24H [facility] Stop: 05/31/17 20:01 Last Admin: 05/30/17 20:21 Dose: 25 gm Insulin Aspart (Novolog Vial Sliding Scale -) 1 vial SQ Q6HPO [facility] PRN Reason: Protocol Last Admin: 05/31/17 06:23 Dose: Not Given Metoprolol Tartrate (Lopressor -) 25 mg PO BID [facility] Nystatin (Nystatin Oral Suspension -) 500,000 units PO Q6HPO [facility] [place] Last Admin: 05/31/17 06:10 Dose: 500,000 units Nystatin (Nystop Powder -) 1 applic TP DAILY [facility] Last Admin: 05/30/17 13:22 Dose: 1 applic Ondansetron HCl (Zofran -) 8 mg PO Q8H PRN PRN Reason: NAUSEA Prednisone (Deltasone -) 40 mg PO DAILY [facility] Last Admin: 05/31/17 09:08 Dose: 40 mg Pyridostigmine [place] (Mestinon -) 60 mg PO TID [facility] Last Admin: 05/31/17 06:10 Dose: 60 mg - Objective Vital Signs: Vital Signs Temperature 98.3 F 05/31/17 10:00 Pulse Rate 69 05/31/17 10:00 Respiratory Rate 18 05/31/17 10:00 Blood Pressure 148/58 05/31/17 10:00 O2 Sat by Pulse Oximetry (%) 95 05/31/17 09:00 Constitutional: Yes: Well Nourished, No Distress, Calm Eyes: Yes: Conjunctiva Clear, EOM Intact HENT: Yes: Atraumatic, Normocephalic Neck: Yes: Supple, Trachea Midline Cardiovascular: Yes: Regular Rate and Rhythm, Bradycardia Respiratory: Yes: Regular, CTA Bilaterally, On Nasal O2 Gastrointestinal: Yes: Normal Bowel Sounds, Soft ...Rectal Exam: Yes: Deferred Edema: No Peripheral Pulses WNL: Yes Labs: CBC, BMP 05/31/17 05:19 05/31/17 05:19 INR, PTT INR 0.88 (0.82-1.09) 05/26/17 10:35 Assessment/Plan 86 year old woman with a PMHx of myasthenia gravis, MDD, HTN, and hyperlipidemia presented with diarrhea for 2 weeks with weight loss. Reports adrenal mass on ct abd in past. Was transferred to MICU for dyspnea and myasthenia. Noted to be in new afib with RVR. No chest pain or palpitations but dyspnea worsening after receiving diltiazem. She received digoxin IV loading and metoprolol. VR control improved. Her troponin is trending up, likely secondary to demand ischemia. She was spontaneously cardioverted to sinus rhythm. She remains in sinus with bradycardia and short pauses while on Metoprolol 37.5 mg BID. Echocardiogram 05/27/2017: Normal LV systolic function. No regional wall motion abnormalities. Normal RV. No significant valvular abnormalities. -Atrial fibrillation: Spontaneously cardioverted to sinus rhythm. Remains in sinus with bradycardia and short pauses while on Metoprolol 37.5 mg BID May decrease metoprolol 25 to mg BID. May discontinue Digoxin. (Digoxin does not prevent recurrent atrial fibrillation ). Continue Eliquis 5 mg BID for CVA prevention ([id number] Score = 3). Please call us for reconsult as needed.
--- NOTE | 2017-05-31 10:57 | PN ---
Progress Note, Physician History of Present Illness: pulmonary alert,no distress,-dyspnea, NIF -16,VC 550 - Current Medication List Current Medications: Active Medications Amlodipine Besylate (Norvasc -) 10 mg PO DAILY [facility] Last Admin: 05/31/17 09:09 Dose: 10 mg Apixaban (Eliquis -) 5 mg PO BID [facility] Last Admin: 05/31/17 09:09 Dose: 5 mg Digoxin (Lanoxin -) 0.125 mg PO DAILY [facility] Last Admin: 05/31/17 09:08 Dose: 0.125 mg Fluoxetine HCl (Prozac -) 10 mg PO DAILY [facility] Last Admin: 05/31/17 09:14 Dose: 10 mg Hydralazine HCl (Apresoline -) 10 mg PO BID [facility] Last Admin: 05/31/17 09:09 Dose: 10 mg CEFTRIAXONE 1 G/50 ML PREMIX (Ceftriaxone 1 Gm-D5w Bag) 50 mls @ 100 mls/hr IVPB DAILY [facility] Last Admin: 05/31/17 09:09 Dose: 100 mls/hr Immune Globulin (Gamunex-C) 25 gm IVPB Q24H [facility] Stop: 05/31/17 20:01 Last Admin: 05/30/17 20:21 Dose: 25 gm Insulin Aspart (Novolog Vial Sliding Scale -) 1 vial SQ Q6HPO [facility] PRN Reason: Protocol Last Admin: 05/31/17 06:23 Dose: Not Given Metoprolol Tartrate (Lopressor -) 25 mg PO BID [facility] Nystatin (Nystatin Oral Suspension -) 500,000 units PO Q6HPO [facility] Last Admin: 05/31/17 06:10 Dose: 500,000 units Nystatin (Nystop Powder -) 1 applic TP DAILY [facility] Last Admin: 05/30/17 13:22 Dose: 1 applic Ondansetron HCl (Zofran -) 8 mg PO Q8H PRN PRN Reason: NAUSEA Prednisone (Deltasone -) 40 mg PO DAILY [facility] Last Admin: 05/31/17 09:08 Dose: 40 mg Pyridostigmine [place] (Mestinon -) 60 mg PO TID [facility] Last Admin: 05/31/17 06:10 Dose: 60 mg - Objective Vital Signs: Vital Signs Temperature 98.3 F 05/31/17 10:00 Pulse Rate 69 05/31/17 10:00 Respiratory Rate 18 05/31/17 10:00 Blood Pressure 148/58 05/31/17 10:00 O2 Sat by Pulse Oximetry (%) 95 05/31/17 09:00 Constitutional: Yes: Calm, Thin Eyes: Yes: WNL HENT: Yes: WNL Neck: Yes: WNL Cardiovascular: Yes: Pulse Irregular, S1, S2 Respiratory: Yes: CTA Bilaterally Gastrointestinal: Yes: Normal Bowel Sounds, Soft Extremities: Yes: WNL Edema: No Labs: CBC, BMP 05/31/17 05:19 05/31/17 05:19 INR, PTT INR 0.88 (0.82-1.09) 05/26/17 10:35 Problem List - Problems (1) Shortness of breath Code(s): R06.02 - SHORTNESS OF BREATH (2) Acute hypercapnic respiratory failure Code(s): J96.02 - ACUTE RESPIRATORY FAILURE WITH HYPERCAPNIA Assessment/Plan Problem List - Problems (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
--- NOTE | 2017-05-31 11:13 | PN ---
Teaching Attending Note Name of Resident: Addie Caro ATTENDING PHYSICIAN STATEMENT I saw and evaluated the patient. I reviewed the resident's note and discussed the case with the resident. I agree with the resident's findings and plan as documented. SUBJECTIVE: Feels tired today with no acute distress. Had a continuous diarrhea last night and made her very tired. OBJECTIVE: Vital Signs Temperature 98.3 F 05/31/17 10:00 Pulse Rate 69 05/31/17 10:00 Respiratory Rate 18 05/31/17 10:00 Blood Pressure 148/58 05/31/17 10:00 O2 Sat by Pulse Oximetry (%) 95 05/31/17 09:00 CBCD WBC 14.1 K/mm3 (4.0-10.0) H 05/31/17 05:19 RBC 4.41 M/mm3 (3.60-5.2) 05/31/17 05:19 Hgb 13.3 GM/dL (10.7-15.3) 05/31/17 05:19 Hct 39.8 % (32.4-45.2) 05/31/17 05:19 MCV 90.1 fl (80-96) 05/31/17 05:19 MCHC 33.4 g/dl (32.0-36.0) 05/31/17 05:19 RDW 12.9 % (11.6-15.6) 05/31/17 05:19 Plt Count 221 K/MM3 (134-434) 05/31/17 05:19 MPV 9.1 fl (7.5-11.1) 05/31/17 05:19 CMP Sodium 141 mmol/L (136-145) 05/31/17 05:19 Potassium 3.8 mmol/L (3.5-5.1) 05/31/17 05:19 Chloride 101 mmol/L (98-107) 05/31/17 05:19 Carbon Dioxide 37 mmol/L (21-32) H 05/31/17 05:19 Anion Gap 3 (8-16) L 05/31/17 05:19 BUN 15 mg/dL (7-18) 05/31/17 05:19 Creatinine 0.7 mg/dL (0.55-1.02) 05/31/17 05:19 Creat Clearance w eGFR > 60 (>60) 05/31/17 05:19 Random Glucose 141 mg/dL (74-106) H 05/31/17 05:19 Calcium 8.5 mg/dL (8.5-10.1) 05/31/17 05:19 Total Bilirubin 0.6 mg/dL (0.2-1.0) D 05/31/17 05:19 AST 167 U/L (15-37) H D 05/31/17 05:19 ALT 150 U/L (12-78) H D 05/31/17 05:19 Alkaline Phosphatase 107 U/L (45-117) 05/31/17 05:19 Total Protein 8.5 g/dl (6.4-8.2) H 05/31/17 05:19 Albumin 2.7 g/dl (3.4-5.0) L 05/31/17 05:19 CARDIAC ENZYMES Creatine Kinase 67 IU/L (26-192) 05/29/17 12:15 Troponin I 0.33 ng/ml (0.00-0.05) H 05/29/17 19:10 Current Medications Generic Name Dose Route Start Last Admin Trade Name Shawq PRN Reason Stop Dose Admin Amlodipine Besylate 10 mg 05/28/17 10:00 05/31/17 09:09 Norvasc - PO 10 mg DAILY THANH Administration Apixaban 5 mg 05/30/17 22:00 05/31/17 09:09 Eliquis - PO 5 mg BID [facility] Administration Digoxin 0.125 mg 05/28/17 10:00 05/31/17 09:08 Lanoxin - PO 0.125 mg DAILY THANH Administration Fluoxetine HCl 10 mg 05/27/17 10:00 05/31/17 09:14 Prozac - PO 10 mg DAILY THANH Administration Hydralazine HCl 10 mg 05/30/17 09:15 05/31/17 09:09 Apresoline - PO 10 mg BID THANH Administration Insulin Aspart 1 vial 05/27/17 18:00 05/31/17 06:23 Novolog Vial Sliding Scale - SQ Not Given Q6HPO [facility] Protocol Metoprolol Tartrate 25 mg 05/31/17 10:30 Lopressor - PO BID THANH Nystatin 500,000 units 05/29/17 18:00 05/31/17 06:10 Nystatin Oral Suspension - PO 500,000 units Q6HPO THANH Administration Nystatin 1 applic 05/30/17 11:00 05/30/17 13:22 Nystop Powder - TP 1 applic DAILY THANH Administration Prednisone 40 mg 05/29/17 12:45 05/31/17 09:08 Deltasone - PO 40 mg DAILY THANH Administration Pyridostigmine [place] 30 mg 05/31/17 11:09 Mestinon - PO TID [facility] Home Medications Medication Instructions Recorded Amlodipine Besylate/Benazepril 1 cap PO BID 05/24/17 [Lotrel 10-20 mg Capsule] Amoxicillin/Potassium Clav 1 each PO DAILY 05/24/17 [Augmentin 875-125 Tablet] Metformin HCl [Glucophage] 500 mg PO BID 05/24/17 Pyridostigmine [Mestinon] 60 mg PO TID 05/24/17 RX: Fluoxetine HCl 10 mg PO DAILY 05/24/17 RX: Hydralazine HCl 10 mg PO BID 05/24/17 RX: Pantoprazole Sodium 40 mg PO DAILY 05/24/17 RX: Potassium Chloride 10 meq PO DAILY 05/24/17 Rosuvastatin [Crestor -] 10 mg PO DAILY 05/24/17 PE: per resident's note ASSESSMENT AND PLAN: Patient is a 86 y/o lady with h/o HTN, DM , recent diagnosis of Myasthenia Gravis , hyperlipidemia who presented with difficulty swallowing and SOB . Now with irregular heart rate # New onset AFib: rate controlled, back to sinus now, continue BB and digoxin as per cardiology for VR control. [id number] sore of 5,On Eliquis now , discontinued heparin gtt. # Acute Myasthenia gravis Crisis on pyridostigmine , on IVIG daily x 4/5 days, since patient is having diarrhea and feeling nauseas , will decrease the dose to 30mg tid from 60mg as per discussion with neurologist and also will discontinue IVIG since LFTs are elevated discussed with , all the drugs that go through liver are discontinued , Also on Prednisone per [facility]uro. needs to be tapered as a long course, 40mg x 1 week, 30mg x1wk, 20mg x1wk , 20mg x1 week, 10mg x 1 week and 5mg x 1week, upon discharge patient needs to follow with neurologist within a week period. # Acute heart failure : due to RVR. , ECHo within NL limit . No need to diuress further, patient is Euvolemic. Echocardiogram 05/27/2017: Normal LV systolic function. No regional wall motion abnormalities. Normal RV. No significant valvular abnormalities. # NSTEMI due to demand ischemia in the setting of rapid A fib . No ST changes. Troponin is slightly elevated today. # s/p Acute hypoxic hypercapnic respiratory failure due to MG crisis on Bipap prn. # HTN Uncontrolled on BB to 25mg BID, will monitor , will resume her home hydralazine # Leukocytosis : has a recent UTI which was partially treated as out pt . On IV antibiotic continue, Neg C diff, so culture is negative , cont empiric CTX # Difficulty with swallowing , will get [facility] speech therapist to evaluate the patient. DVT Px: Eliquis Possible discharge to rehab in am
--- NOTE | 2017-05-31 11:52 | EKG ---
Test Reason : Blood Pressure : / mmHG Vent. Rate : 103 BPM Atrial Rate : 103 BPM P-R Int : 214 ms QRS Dur : 088 ms QT Int : 284 ms P-R-T Axes : 049 -01 267 degrees QTc Int : 372 ms SINUS TACHYCARDIA WITH 1ST DEGREE A-V BLOCK MINIMAL VOLTAGE CRITERIA FOR LVH, MAY BE NORMAL VARIANT ABNORMAL ECG Confirmed by HALINA NUNO MD ([id number]) on 05/31/2017 11:52:29 AM Referred By: Confirmed By:HALINA NUNO MD
--- NOTE | 2017-05-31 17:05 | PN ---
Progress Note, Physician History of Present Illness: OOB in chair Swallowing better No c/o fever/ chills Afebrile WBC improved - Current Medication List Current Medications: Active Medications Amlodipine Besylate (Norvasc -) 10 mg PO DAILY [facility] Last Admin: 05/31/17 09:09 Dose: 10 mg Apixaban (Eliquis -) 5 mg PO BID [facility] Last Admin: 05/31/17 09:09 Dose: 5 mg Fluoxetine HCl (Prozac -) 10 mg PO DAILY [facility] Last Admin: 05/31/17 09:14 Dose: 10 mg Hydralazine HCl (Apresoline -) 10 mg PO BID [facility] Last Admin: 05/31/17 09:09 Dose: 10 mg Insulin Aspart (Novolog Vial Sliding Scale -) 1 vial SQ Q6HPO [facility] PRN Reason: Protocol Last Admin: 05/31/17 11:50 Dose: 2 units Metoprolol Tartrate (Lopressor -) 25 mg PO BID [facility] Nystatin (Nystatin Oral Suspension -) 500,000 units PO Q6HPO [facility] Last Admin: 05/31/17 12:39 Dose: 500,000 units Nystatin (Nystop Powder -) 1 applic TP DAILY [facility] Last Admin: 05/31/17 10:39 Dose: 1 applic Prednisone (Deltasone -) 40 mg PO DAILY [facility] Last Admin: 05/31/17 09:08 Dose: 40 mg Pyridostigmine [place] (Mestinon -) 30 mg PO TID [facility] Last Admin: 05/31/17 14:37 Dose: 30 mg - Objective Vital Signs: Vital Signs Temperature 98 F 05/31/17 13:57 Pulse Rate 62 05/31/17 13:57 Respiratory Rate 18 05/31/17 13:57 Blood Pressure 131/67 05/31/17 13:57 O2 Sat by Pulse Oximetry (%) 96 05/31/17 14:18 Constitutional: Yes: Obese Eyes: Yes: Conjunctiva Clear Cardiovascular: Yes: Regular Rate and Rhythm, S1, S2 Respiratory: Yes: Diminished Gastrointestinal: Yes: Normal Bowel Sounds, Soft, Abdomen, Obese. No: Tenderness Labs: CBC, BMP 05/31/17 05:19 05/31/17 05:19 INR, PTT INR 0.88 (0.82-1.09) 05/26/17 10:35 Assessment/Plan Acute exacerbation, Myasthenia Gravis ? Secondary to infection ( gastroenteritis) Acute gastroenteritis Leukocytosis improved Off antibiotics Observe
[2017-06-01] MEDS: NYSTATIN 500,000 UNITS/5 ML SUSPENSION PO SCH ×3 (06:25→17:42)
[2017-06-01] MEDS: INSULIN SLIDING SCALE (NOVOLOG) 1 VIAL SQ SCH ×3 (06:25→17:43)
[2017-06-01] MEDS: PYRIDOSTIGMINE BROMIDE 60 MG TABLET PO SCH ×3 (06:26→21:32)
[2017-06-01 07:35] LABS: MCH 29.7 pg (25.7-33.7); MCHC 33.4 g/dl (32.0-36.0); MEAN CELL VOLUME 88.9 fl (80-96); MEAN PLT VOLUME 9.5 fl (7.5-11.1); PLATELET COUNT 217 K/MM3 (134-434); RDW 12.9 % (11.6-15.6); WHITE BLOOD COUNT 15.7 K/mm3 (4.0-10.0)
[2017-06-01] MEDS ORDERED: INSULIN (NOVOLOG) ASPART 100 UNITS/ML 10ML VIAL ONE (08:00)
[2017-06-01 08:09] LABS: ALBUMIN 2.6 g/dl (3.4-5.0); ANION GAP 2 (8-16); CALCIUM 8.5 mg/dL (8.5-10.1); CO2 39 mmol/L (21-32); CREATININE 0.6 mg/dL (0.55-1.02); GLUCOSE,RANDOM 149 mg/dL (74-106); SGOT/AST 181 U/L (15-37); SGPT/ALT 214 U/L (12-78)
[2017-06-01 08:11] LABS: ALK PHOS 107 U/L (45-117); BILIRUBIN,TOTAL 0.8 mg/dL (0.2-1.0); TOT PROT 7.8 g/dl (6.4-8.2)
[2017-06-01] MEDS ORDERED: PT OWN MED DRAWER 7, Y5N ONE ×3 (09:18→21:31)
[2017-06-01] MEDS: hydrALAZINE HCL 10 MG TABLET PO SCH ×2 (09:24→21:30)
[2017-06-01] MEDS: METOPROLOL TARTRATE 25 MG TABLET (FP) PO SCH ×2 (09:24→21:30)
[2017-06-01] MEDS: FLUoxetine HCL 10 MG CAPSULE (FP) PO SCH (09:24)
[2017-06-01] MEDS: amLODIPine BESYLATE 10 MG TABLET (FP) PO SCH (09:24)
[2017-06-01] MEDS: predniSONE 20 MG TABLET (UD) PO SCH (09:24)
[2017-06-01] MEDS: APIXABAN 5 MG TABLET PO SCH ×2 (09:25→21:30)
[2017-06-01] MEDS: NYSTATIN POWDER 100,000 UNITS/GM - 15 GM TOPICAL POWDER TP SCH (09:25)
--- NOTE | 2017-06-01 13:11 | PN ---
Physical Exam: SUBJECTIVE: Patient seen and examined Patient is comfortable with no acute distress. no nausea or vomiting, saturating well. OBJECTIVE: Vital Signs Temperature 98.5 F 06/01/17 10:00 Pulse Rate 86 06/01/17 10:00 Respiratory Rate 18 06/01/17 10:00 Blood Pressure 137/65 06/01/17 10:00 O2 Sat by Pulse Oximetry (%) 99 06/01/17 11:25 GENERAL: The patient is awake, alert, and fully oriented, in no acute distress. HEAD: Normal with no signs of trauma. EYES: PERRL, extraocular movements intact, sclera anicteric, conjunctiva clear. ENT: Ears normal, oropharynx clear without exudates, moist mucous membranes. NECK: Trachea midline, full range of motion, supple. LUNGS: Breath sounds equal, clear to auscultation bilaterally, no wheezes, no crackles, no accessory muscle use. HEART: Regular rate and rhythm, S1, S2 positive , ELVIA 3/6 no rub or gallop. ABDOMEN: Soft, nontender, nondistended, normoactive bowel sounds, no guarding, no rebound, no hepatosplenomegaly, no masses. EXTREMITIES: 2+ pulses, warm, well-perfused, no edema. NEUROLOGICAL: Cranial nerves II through XII grossly intact. Normal speech, gait not observed. PSYCH: Normal mood, normal affect. SKIN: Warm, dry, normal turgor, no rashes or lesions noted CBCD WBC 15.7 K/mm3 (4.0-10.0) H 06/01/17 06:00 RBC 4.45 M/mm3 (3.60-5.2) 06/01/17 06:00 Hgb 13.2 GM/dL (10.7-15.3) 06/01/17 06:00 Hct 39.6 % (32.4-45.2) 06/01/17 06:00 MCV 88.9 fl (80-96) 06/01/17 06:00 MCHC 33.4 g/dl (32.0-36.0) 06/01/17 06:00 RDW 12.9 % (11.6-15.6) 06/01/17 06:00 Plt Count 217 K/MM3 (134-434) 06/01/17 06:00 MPV 9.5 fl (7.5-11.1) 06/01/17 06:00 CMP Sodium 142 mmol/L (136-145) 06/01/17 06:00 Potassium 3.6 mmol/L (3.5-5.1) 06/01/17 06:00 Chloride 101 mmol/L (98-107) 06/01/17 06:00 Carbon Dioxide 39 mmol/L (21-32) H 06/01/17 06:00 Anion Gap 2 (8-16) L 06/01/17 06:00 BUN 20 mg/dL (7-18) H D 06/01/17 06:00 Creatinine 0.6 mg/dL (0.55-1.02) 06/01/17 06:00 Creat Clearance w eGFR > 60 (>60) 06/01/17 06:00 Random Glucose 149 mg/dL (74-106) H 06/01/17 06:00 Calcium 8.5 mg/dL (8.5-10.1) 06/01/17 06:00 Total Bilirubin 0.8 mg/dL (0.2-1.0) D 06/01/17 06:00 AST 181 U/L (15-37) H 06/01/17 06:00 ALT 214 U/L (12-78) H D 06/01/17 06:00 Alkaline Phosphatase 107 U/L (45-117) 06/01/17 06:00 Total Protein 7.8 g/dl (6.4-8.2) 06/01/17 06:00 Albumin 2.6 g/dl (3.4-5.0) L 06/01/17 06:00 CARDIAC ENZYMES Creatine Kinase 67 IU/L (26-192) 05/29/17 12:15 Troponin I 0.33 ng/ml (0.00-0.05) H 05/29/17 19:10 Home Medication List Medication Instructions Recorded Confirmed Type Amlodipine Besylate/Benazepril 1 cap PO BID 05/24/17 05/24/17 History [Lotrel 10-20 mg Capsule] Amoxicillin/Potassium Clav 1 each PO DAILY 05/24/17 05/24/17 History [Augmentin 875-125 Tablet] Fluoxetine HCl 10 mg PO DAILY 05/24/17 05/24/17 History Hydralazine HCl 10 mg PO BID 05/24/17 05/24/17 History Metformin HCl [Glucophage] 500 mg PO BID 05/24/17 05/24/17 History Pantoprazole Sodium 40 mg PO DAILY 05/24/17 05/24/17 History Potassium Chloride 10 meq PO DAILY 05/24/17 05/24/17 History Pyridostigmine [Mestinon] 60 mg PO TID 05/24/17 05/24/17 History Rosuvastatin [Crestor -] 10 mg PO DAILY 05/24/17 05/24/17 History Active Medications Generic Name Dose Route Start Last Admin Trade Name Amy PRN Reason Stop Dose Admin Amlodipine Besylate 10 mg 05/28/17 10:00 06/01/17 09:24 Norvasc - PO 10 mg DAILY THANH Administration Apixaban 5 mg 05/30/17 22:00 06/01/17 09:25 Eliquis - PO 5 mg BID THANH Administration Fluoxetine HCl 10 mg 05/27/17 10:00 06/01/17 09:24 Prozac - PO 10 mg DAILY THANH Administration Hydralazine HCl 10 mg 05/30/17 09:15 06/01/17 09:24 Apresoline - PO 10 mg BID THANH Administration Insulin Aspart 1 vial 05/27/17 18:00 06/01/17 06:25 Novolog Vial Sliding Scale - SQ Not Given Q6HPO [facility] Protocol Metoprolol Tartrate 25 mg 05/31/17 22:00 06/01/17 09:24 Lopressor - PO 25 mg BID THANH Administration Nystatin 500,000 units 05/29/17 18:00 06/01/17 06:25 Nystatin Oral Suspension - PO 500,000 units Q6HPO [facility]AN[facility] Administration Nystatin 1 applic 05/30/17 11:00 06/01/17 09:25 Nystop Powder - TP 1 applic DAILY THANH Administration Prednisone 40 mg 05/29/17 12:45 06/01/17 09:24 Deltasone - PO 40 mg DAILY THANH Administration Pyridostigmine [place] 30 mg 05/31/17 11:09 06/01/17 06:26 Mestinon - PO 30 mg TID THANH Administration Patient is a 86 y/o lady with h/o HTN, DM , recent diagnosis of Myasthenia Gravis , hyperlipidemia who presented with difficulty swallowing and SOB . Now with irregular heart rate A/P: # New onset AFib: rate controlled, back to sinus now, continue BB and digoxin as per cardiology for VR control. [id number] sore of 5,On Eliquis now , discontinued heparin gtt. # s/p Acute Myasthenia gravis Crisis on pyridostigmine , s/p IVIG 4/5 days, decreased the dose of Pysostigmine since patient was having diarrhea S/e of physostigmine. # Elevated LFTs continues , discontinued IVIG, and also patient received Augmentin as an outpatient prior to hospital admission that can cause elevated LFTs. per to taper prednisone very slowly 40mg x 1 week, 30mg x1wk , 20mg x1wk, 20mg x1 week, 10mg x 1 week and 5mg x 1week, upon discharge patient needs to follow with neurologist within a week period. will follow LFTs if trending down then will discharge the patient for rehab. # Acute heart failure : due to RVR. , ECHo within NL limit . No need to diuress further, patient is Euvolemic. Echocardiogram 05/27/2017: Normal LV systolic function. No regional wall motion abnormalities. Normal RV. No significant valvular abnormalities. # NSTEMI due to demand ischemia in the setting of rapid A fib . No ST changes. Troponin is slightly elevated today. # s/p Acute hypoxic hypercapnic respiratory failure due to MG crisis on Bipap prn. # HTN Uncontrolled on BB to 25mg BID, will monitor , will resume her home hydralazine # Leukocytosis : has a recent UTI which was partially treated as out pt . On IV antibiotic continue, Neg C diff, so culture is negative , cont empiric CTX # Difficulty with swallowing , will get [facility] speech therapist to evaluate the patient. DVT Px: Eliquis Possible discharge to rehab in am Visit type - Emergency Visit Emergency Visit: Yes ED Registration Date: 05/24/17 Care time: The patient presented to the Emergency Department on the above date and was hospitalized for further evaluation of their emergent condition. - New Patient This patient is new to me today: No - Critical Care Critical Care patient: No
--- NOTE | 2017-06-01 14:19 | PN ---
Progress Note (short form) - Note Progress Note: FU : improved strength and speech completed -day 4/ IVIG -- elevated LFTS ,and stopped no diarrhea evel Of Consciousness: Yes: Alert, Oriented to Person, Oriented to Place, Oriented to Time Eyes: Yes: BEBE (Somewhat hypophonic) Dominant Hand: Right Mini Mental Exam: Awake, alert, follows all commands, Cranial Nerves II-XII Intact: slight dysconjugate gaze though EOMI, slight head drop, Gag: Present DTR's: 0 Left Achilles, 0 Right Achilles, 1+ Left Bicep, 1+ Right Bicep, 1+ Left Tricep, 1+ Right Tricep, 1+ Left Brachioradialis, 1+ Right Brachioradialis Babinski: Absent Response to light touch: Normal Response to pain prick: Normal Response to vibration: Normal Motor Strength: 5/5:weakness deltoid R >L 4/5 , TR R 4+/5, L 5/5, LE 5/5 Gait: Deferred Vital Signs Temperature 98.5 F 06/01/17 10:00 Pulse Rate 86 06/01/17 10:00 Respiratory Rate 18 06/01/17 10:00 Blood Pressure 137/65 06/01/17 10:00 O2 Sat by Pulse Oximetry (%) 99 06/01/17 11:25 CBCD WBC 14.1 K/mm3 (4.0-10.0) H 05/31/17 05:19 RBC 4.41 M/mm3 (3.60-5.2) 05/31/17 05:19 Hgb 13.3 GM/dL (10.7-15.3) 05/31/17 05:19 Hct 39.8 % (32.4-45.2) 05/31/17 05:19 MCV 90.1 fl (80-96) 05/31/17 05:19 MCHC 33.4 g/dl (32.0-36.0) 05/31/17 05:19 RDW 12.9 % (11.6-15.6) 05/31/17 05:19 Plt Count 221 K/MM3 (134-434) 05/31/17 05:19 MPV 9.1 fl (7.5-11.1) 05/31/17 05:19 CMP Sodium 141 mmol/L (136-145) 05/31/17 05:19 Potassium 3.8 mmol/L (3.5-5.1) 05/31/17 05:19 Chloride 101 mmol/L (98-107) 05/31/17 05:19 Carbon Dioxide 37 mmol/L (21-32) H 05/31/17 05:19 Anion Gap 3 (8-16) L 05/31/17 05:19 BUN 15 mg/dL (7-18) 05/31/17 05:19 Creatinine 0.7 mg/dL (0.55-1.02) 05/31/17 05:19 Creat Clearance w eGFR > 60 (>60) 05/31/17 05:19 Calcium 8.5 mg/dL (8.5-10.1) 05/31/17 05:19 Total Bilirubin 0.6 mg/dL (0.2-1.0) D 05/31/17 05:19 AST 167 U/L (15-37) H D 05/31/17 05:19 ALT 150 U/L (12-78) H D 05/31/17 05:19 Alkaline Phosphatase 107 U/L (45-117) 05/31/17 05:19 Total Protein 8.5 g/dl (6.4-8.2) H 05/31/17 05:19 Albumin 2.7 g/dl (3.4-5.0) L 05/31/17 05:19 Assessment/Plan Pt. with hx. of MG x1 year, stable on Mestinon 60mg tid since her last Myasthenic crisis in 02/04. She now presents with diarrhea x 2 weeks-though she states may have started even bf being on mestinon( will consider tapering dose when she is more stable) new onset Afib appears to have MG exacerbation , more bulbar ; ? related to underlying infection completed IVIG day #4/5--given elevated LFTS IVIG stopped ( ? cause) on prednisone 40mg poqd ( DM , watch sugars)-- will do slow taper over month , she will follow with outpt [facility] at [facility] reduced mestinon 30TID -- ? diarhea cause doing better , awaiting LFTS to correct then rehab Dr Simons
--- NOTE | 2017-06-01 15:04 | PN ---
Progress Note (short form) - Note Progress Note: PULMONARY States breathing is better. Ambulated yesterday. Last Vital Signs Temp Pulse Resp BP Pulse Ox 98.5 F 86 18 137/65 98 06/01/17 10:00 06/01/17 10:00 06/01/17 10:00 06/01/17 10:00 06/01/17 14:00 Gen: NAD in chair Heart: RRR Lung: decreased breath sounds at the bases Abd: soft, nontender Ext: no edema CBC, BMP 06/01/17 06:00 06/01/17 06:00 Active Medications Amlodipine Besylate (Norvasc -) 10 mg PO DAILY [facility] Last Admin: 06/01/17 09:24 Dose: 10 mg Apixaban (Eliquis -) 5 mg PO BID [facility] Last Admin: 06/01/17 09:25 Dose: 5 mg Fluoxetine HCl (Prozac -) 10 mg PO DAILY [facility] Last Admin: 06/01/17 09:24 Dose: 10 mg Hydralazine HCl (Apresoline -) 10 mg PO BID [facility] Last Admin: 06/01/17 09:24 Dose: 10 mg Insulin Aspart (Novolog Vial Sliding Scale -) 1 vial SQ Q6HPO [facility] PRN Reason: Protocol Last Admin: 06/01/17 06:25 Dose: Not Given Metoprolol Tartrate (Lopressor -) 25 mg PO BID [facility] Last Admin: 06/01/17 09:24 Dose: 25 mg Nystatin (Nystatin Oral Suspension -) 500,000 units PO Q6HPO [facility] Last Admin: 06/01/17 06:25 Dose: 500,000 units Nystatin (Nystop Powder -) 1 applic TP DAILY [facility] Last Admin: 06/01/17 09:25 Dose: 1 applic Prednisone (Deltasone -) 40 mg PO DAILY [facility] Last Admin: 06/01/17 09:24 Dose: 40 mg Pyridostigmine [place] (Mestinon -) 30 mg PO TID [facility] Last Admin: 06/01/17 06:26 Dose: 30 mg A/P Acute Hypercapneic Respiratory Failure improving Myasthenia Gravis Exacerbation Atrial Fibrillation HTN DM Hyperlipidemia - continue mestinon - IVIG per neuro - will start prednisone taper back to 10mg daily - BiPAP as needed - O2 to keep SpO2 >90% - continue anticoagulation
--- NOTE | 2017-06-01 16:02 | CON.GI ---
Consult Consult Specialty:: Gastroenterology ( covering Dr. Littlejohn) Referred by:: Dr. Neville Reason for Consultation:: Abnormal LFTs - History of Present Illness Chief Complaint: Admitted for diarrhea but developed worsening mysthenia gravis History of Present Illness: 86F is admitted for diarrhea that arose after getting Cipro and later Augmentin for a UTI at [facility] and developed worsening myasthenia gravis. Her LFTs were normal on admission. She denies any h/o liver disease, transfusions, alcohol abuse or IVDA. She has since been exposed to IVIG, steroids, zofran, Ceftriazone among others. Her stool cultures and C diff are negative. She has never had a colonoscopy and does not want one. She denies abdominal pain. 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: Other (Myasthenia gravis) Cardio/Vascular: Yes: Aortic Stenosis (mild aortic sclerosis but loud murmur), HTN Pulmonary: Yes: Other (MG) Gastrointestinal: Yes: Other (umbilical hernia) Renal/: Yes: UTI Psych: No: Addictions Musculoskeletal: Yes: Other (MG) Endocrine: Yes: Diabetes Mellitus - Past Surgical History Past Surgical History: Yes: Appendectomy, Cholecystectomy - Alcohol/Substance Use Hx Alcohol Use: Yes (rare gin and tonic and beer) History of Substance Use: reports: None - Smoking History Smoking history: Never smoked - Social History Usual Living Arrangement: Alone ADL: Independent Place of : [facility] History of Recent Travel: No Home Medications - Allergies Allergies/Adverse Reactions: Allergies Allergy/AdvReac Type Severity Reaction Status Date / Time No Known Allergies Allergy Verified 05/24/17 12:13 - Home Medications Home Medications: Ambulatory Orders Amlodipine Besylate/Benazepril [Lotrel 10-20 mg Capsule] 1 cap PO BID 05/24/17 Amoxicillin/Potassium Clav [Augmentin 875-125 Tablet] 1 each PO DAILY 05/24/17 Fluoxetine HCl 10 mg PO DAILY 05/24/17 Hydralazine HCl 10 mg PO BID 05/24/17 Metformin HCl [Glucophage] 500 mg PO BID 05/24/17 Pantoprazole Sodium 40 mg PO DAILY 05/24/17 Potassium Chloride 10 meq PO DAILY 05/24/17 Pyridostigmine [Mestinon] 60 mg PO TID 05/24/17 Rosuvastatin [Crestor -] 10 mg PO DAILY 05/24/17 Family Disease History - Family Disease History Family Disease History: Heart Disease: Father ( 65 of [place]), CA: Mother ( 57 cervical ca) Review of Systems - Review of Systems Constitutional: reports: Weakness Eyes: reports: Blurred Vision HENT: reports: No Symptoms Neck: reports: No Symptoms Cardiovascular: reports: No Symptoms Respiratory: reports: No Symptoms Gastrointestinal: reports: Diarrhea Genitourinary: reports: Burning, Frequency Musculoskeletal: reports: No Symptoms Neurological: reports: No Symptoms Physical Exam-GI Vital Signs: Vital Signs Temperature 98.2 F 06/01/17 14:20 Pulse Rate 65 06/01/17 14:20 Respiratory Rate 18 06/01/17 14:20 Blood Pressure 124/52 06/01/17 14:20 O2 Sat by Pulse Oximetry (%) 98 06/01/17 14:00 CBC,CMP WBC 15.7 K/mm3 (4.0-10.0) H 06/01/17 06:00 RBC 4.45 M/mm3 (3.60-5.2) 06/01/17 06:00 Hgb 13.2 GM/dL (10.7-15.3) 06/01/17 06:00 Hct 39.6 % (32.4-45.2) 06/01/17 06:00 MCV 88.9 fl (80-96) 06/01/17 06:00 MCH 29.7 pg (25.7-33.7) 06/01/17 06:00 MCHC 33.4 g/dl (32.0-36.0) 06/01/17 06:00 RDW 12.9 % (11.6-15.6) 06/01/17 06:00 Plt Count 217 K/MM3 (134-434) 06/01/17 06:00 MPV 9.5 fl (7.5-11.1) 06/01/17 06:00 Total Counted 100 05/27/17 06:10 Neutrophils % No Result Required. 05/27/17 06:10 Neutrophils % (Manual) 79 % (42.8-82.8) 05/27/17 06:10 Lymphocytes % No Result Required. 05/27/17 06:10 Lymphocytes % (Manual) 15 % (8-40) 05/27/17 06:10 Monocytes % 4.7 % (3.8-10.2) 05/26/17 10:35 Monocytes % (Manual) 6 % (3.8-10.2) 05/27/17 06:10 Eosinophils % 0.0 % (0-4.5) D 05/26/17 10:35 Basophils % 0.5 % (0-2.0) 05/26/17 10:35 Platelet Estimate Adequate (NORMAL) 05/27/17 06:10 Sodium 142 mmol/L (136-145) 06/01/17 06:00 Potassium 3.6 mmol/L (3.5-5.1) 06/01/17 06:00 Chloride 101 mmol/L (98-107) 06/01/17 06:00 Carbon Dioxide 39 mmol/L (21-32) H 06/01/17 06:00 Anion Gap 2 (8-16) L 06/01/17 06:00 BUN 20 mg/dL (7-18) H D 06/01/17 06:00 Creatinine 0.6 mg/dL (0.55-1.02) 06/01/17 06:00 Creat Clearance w eGFR > 60 (>60) 06/01/17 06:00 POC Glucometer 158 UNITS (80-120) 06/01/17 06:23 Random Glucose 149 mg/dL (74-106) H 06/01/17 06:00 Lactic Acid 1.5 mmol/L (0.4-2.0) 05/26/17 13:45 Calcium 8.5 mg/dL (8.5-10.1) 06/01/17 06:00 Phosphorus 3.3 mg/dL (2.5-4.9) D 05/30/17 06:00 Magnesium 1.9 mg/dL (1.8-2.4) 05/30/17 06:00 Total Bilirubin 0.8 mg/dL (0.2-1.0) D 06/01/17 06:00 AST 181 U/L (15-37) H 06/01/17 06:00 ALT 214 U/L (12-78) H D 06/01/17 06:00 Alkaline Phosphatase 107 U/L (45-117) 06/01/17 06:00 Creatine Kinase 67 IU/L (26-192) 05/29/17 12:15 Troponin I 0.33 ng/ml (0.00-0.05) H 05/29/17 19:10 B-Natriuretic Peptide 1445.67 pg/ml (5-450) H 05/27/17 09:45 Total Protein 7.8 g/dl (6.4-8.2) 06/01/17 06:00 Albumin 2.6 g/dl (3.4-5.0) L 06/01/17 06:00 TSH 1.23 uIU/ml (0.358-3.74) 05/27/17 09:45 Current Medications Generic Name Dose Route Start Last Admin Trade Name Shawq PRN Reason Stop Dose Admin Amlodipine Besylate 10 mg 05/28/17 10:00 06/01/17 09:24 Norvasc - PO 10 mg DAILY THANH Administration Apixaban 5 mg 05/30/17 22:00 06/01/17 09:25 Eliquis - PO 5 mg BID THANH Administration Fluoxetine HCl 10 mg 05/27/17 10:00 06/01/17 09:24 Prozac - PO 10 mg DAILY THANH Administration Hydralazine HCl 10 mg 05/30/17 09:15 06/01/17 09:24 Apresoline - PO 10 mg BID THANH Administration Insulin Aspart 1 vial 05/27/17 18:00 06/01/17 15:05 Novolog Vial Sliding Scale - SQ Not Given Q6HPO [facility] Protocol Metoprolol Tartrate 25 mg 05/31/17 22:00 06/01/17 09:24 Lopressor - PO 25 mg BID THANH Administration Nystatin 500,000 units 05/29/17 18:00 06/01/17 15:08 Nystatin Oral Suspension - PO 500,000 units Q6HPO THANH Administration Nystatin 1 applic 05/30/17 11:00 06/01/17 09:25 Nystop Powder - TP 1 applic DAILY THANH Administration Prednisone 40 mg 05/29/17 12:45 06/01/17 09:24 Deltasone - PO 40 mg DAILY THANH Administration Pyridostigmine [place] 30 mg 05/31/17 11:09 06/01/17 15:08 Mestinon - PO 30 mg TID THANH Administration Constitutional: Yes: No Distress Eyes: Yes: Conjunctiva Clear HENT: Yes: Normocephalic Neck: Yes: Supple Cardiovascular: Yes: Regular Rate and Rhythm, Murmur (3/3 early systolic murmur at the base with radiation into carotids) Respiratory: Yes: CTA Bilaterally Gastrointestinal Inspection: Yes: Hernia (nontender umbilical hernia), Scars ( healed oblique RUQ and vertical right suprapubic incisions) ...Auscultate: Yes: Normoactive Bowel Sounds ...Palpate: Yes: Soft, Other (nontender) ...Rectal Exam: Yes: Guaiac Negative, Sphincter Tone Normal Neurological: Yes: Alert, Oriented Labs: CBC, BMP 06/01/17 06:00 06/01/17 06:00 INR, PTT INR 0.88 (0.82-1.09) 05/26/17 10:35 Microbiology 05/24/17 13:21 Stool Clostridium difficile Antigen (SHANNAN) - Final 05/24/17 13:21 Stool Clostridium difficile Toxin Assay - Final 05/24/17 13:05 Stool Gram Stain - Final 05/24/17 07:40 Stool Salmonella/Shigella Culture - Final 05/24/17 07:40 Stool Escherichia coli 0157 Culture - Final NO GROWTH OF SALMONELLA OR SHIGELLA SPECIES OBTAINED NO GROWTH OF CAMPYLOBACTER SPECIES OBTAINED NO GROWTH OF YERSINIA SPECIES OBTAINED NO GROWTH OF VIBRIO SPECIES OBTAINED NO GROWTH OF E COLI 0157 OBTAINED Laboratory Tests 05/24/17 05/30/17 05/31/17 13:12 06:00 05:19 WBC Hgb Plt Count Total Bilirubin 0.3 Alkaline Phosphatase 94 AST 26 46 H D 167 H D ALT 26 49 D 150 H D Albumin 06/01/17 06/01/17 06:00 06:00 WBC 15.7 H Hgb 13.2 Plt Count 217 Total Bilirubin 0.8 D Alkaline Phosphatase 107 AST 181 H ALT 214 H D Albumin 2.6 L Problem List - Problems (1) Abnormal LFTs (liver function tests) Assessment/Plan: I suspect that the rising LFTs reflect DILI ( drug induced liver injury) with Augmentin being the primary suspect. Agree with stopping Ceftrizone and IVIG. Will order sonogram imaging to exclude biliary tract disease and cirrhosis. Await liver studies. Discussed case with Dr Hawley. Dr Littlejohn will return on 06/03 Code(s): R79.89 - OTHER SPECIFIED ABNORMAL FINDINGS OF BLOOD CHEMISTRY (2) Diarrhea Assessment/Plan: Will order FUA to exclude a fecal impaction with paradoxical diarrhea as well as stool for WBCs. May need to reconsider colonoscopy if diarrhea persists Code(s): R19.7 - DIARRHEA, UNSPECIFIED Qualifiers: Diarrhea type: unspecified type
[2017-06-02] MEDS: NYSTATIN 500,000 UNITS/5 ML SUSPENSION PO SCH ×4 (00:46→17:22)
[2017-06-02] MEDS: INSULIN SLIDING SCALE (NOVOLOG) 1 VIAL SQ SCH ×5 (00:46→22:11)
[2017-06-02] MEDS: PYRIDOSTIGMINE BROMIDE 60 MG TABLET PO SCH ×3 (06:07→22:23)
[2017-06-02 09:02] LABS: ALBUMIN 2.7 g/dl (3.4-5.0); ALK PHOS 112 U/L (45-117); ANION GAP 11 (8-16); BILIRUBIN,DIRECT 0.3 mg/dL (0.0-0.2); BILIRUBIN,TOTAL 0.8 mg/dL (0.2-1.0); CALCIUM 8.2 mg/dL (8.5-10.1); CO2 33 mmol/L (21-32); CREATININE 0.6 mg/dL (0.55-1.02); GLUCOSE,RANDOM 141 mg/dL (74-106); SGOT/AST 185 U/L (15-37); SGPT/ALT 246 U/L (12-78); TOT PROT 7.5 g/dl (6.4-8.2)
[2017-06-02] MEDS ORDERED: PT OWN MED DRAWER 7, Y5N ONE (09:09)
[2017-06-02 09:48] LABS: BASOPHIL 0.2 % (0-2.0); EOSINOPHIL 0.4 % (0-4.5); MCH 29.1 pg (25.7-33.7); MCHC 33.4 g/dl (32.0-36.0); MEAN CELL VOLUME 87.2 fl (80-96); MEAN PLT VOLUME 9.9 fl (7.5-11.1); NEUTROPHILS 65.5 % (42.8-82.8); PLATELET COUNT 215 K/MM3 (134-434)
[2017-06-02] MEDS: APIXABAN 5 MG TABLET PO SCH ×2 (09:56→22:12)
[2017-06-02] MEDS: METOPROLOL TARTRATE 25 MG TABLET (FP) PO SCH ×2 (09:56→22:12)
[2017-06-02] MEDS: hydrALAZINE HCL 10 MG TABLET PO SCH ×2 (09:56→22:12)
[2017-06-02] MEDS: predniSONE 20 MG TABLET (UD) PO SCH (09:56)
[2017-06-02] MEDS: amLODIPine BESYLATE 10 MG TABLET (FP) PO SCH (09:56)
[2017-06-02] MEDS: NYSTATIN POWDER 100,000 UNITS/GM - 15 GM TOPICAL POWDER TP SCH (09:57)
[2017-06-02] MEDS: FLUoxetine HCL 10 MG CAPSULE (FP) PO SCH (09:57)
--- NOTE | 2017-06-02 12:21 | PN ---
GI Progress Note Subjective: GI NOte ( covering Dr Littlejohn): The transaminases appear to be plateauing. I discussed my suspicion that these are related to the Augmentin or IVIG exposures with her nephew Mr. Calix. Brooke's diarrhea is subsiding. Sonogram reveals no masses, cirrhosis or bile duct dilation. - Objective Vital Signs: Vital Signs Temperature 98 F 06/02/17 10:00 Pulse Rate 70 06/02/17 10:00 Respiratory Rate 18 06/02/17 10:00 Blood Pressure 133/64 06/02/17 10:00 O2 Sat by Pulse Oximetry (%) 98 06/02/17 11:47 Laboratory Tests 06/02/17 06/02/17 06/02/17 06:15 06:15 06:15 WBC 17.0 H Hgb 12.9 Hct 38.7 Plt Count 215 BUN 23 H Creatinine 0.6 Ferritin 420.621 H Total Bilirubin 0.8 Direct Bilirubin 0.3 H AST 185 H ALT 246 H Alkaline Phosphatase 112 Albumin 2.7 L Constitutional: Calm ...Auscultate: Yes: Normoactive Bowel Sounds ...Palpate: Yes: Soft, Other (nontender) Labs: CBC, BMP 06/02/17 06:15 06/02/17 06:15 INR, PTT INR 0.88 (0.82-1.09) 05/26/17 10:35 Problem List - Problems (1) Abnormal LFTs (liver function tests) Assessment/Plan: Elevated LFTs most likely reflect reflect DILI due to Augmentin, Ceftrizone or IVIG. Sonogram reveals no evidence of cirrhosis, obstruction or liver masses. Dr Littlejohn will return on 06/03 Code(s): R79.89 - OTHER SPECIFIED ABNORMAL FINDINGS OF BLOOD CHEMISTRY (2) Diarrhea Code(s): R19.7 - DIARRHEA, UNSPECIFIED Qualifiers: Diarrhea type: unspecified type Qualified Code(s): R19.7 - Diarrhea, unspecified
--- NOTE | 2017-06-02 12:33 | PN ---
Progress Note (short form) - Note Progress Note: Patient is feeling better with no acute distress, comfortable, no further diarrhea, no shortnessof breath, no headache. back to her NL self. Vital Signs Temperature 98 F 06/02/17 10:00 Pulse Rate 70 06/02/17 10:00 Respiratory Rate 18 06/02/17 10:00 Blood Pressure 133/64 06/02/17 10:00 O2 Sat by Pulse Oximetry (%) 98 06/02/17 11:47 GENERAL: The patient is awake, alert, and fully oriented, in no acute distress. HEAD: Normal with no signs of trauma. EYES: PERRL, extraocular movements intact, sclera anicteric, conjunctiva clear. ENT: Ears normal, oropharynx clear without exudates, moist mucous membranes. NECK: Trachea midline, full range of motion, supple. LUNGS: Breath sounds equal, clear to auscultation bilaterally, no wheezes, no crackles, no accessory muscle use. HEART: Regular rate and rhythm, S1, S2 positive, ELVIA 2/6 , no rub or gallop. ABDOMEN: Soft, nontender, nondistended, normoactive bowel sounds, no guarding, no rebound, no hepatosplenomegaly, no masses. EXTREMITIES: 2+ pulses, warm, well-perfused, no edema. NEUROLOGICAL: Cranial nerves II through XII grossly intact. Normal speech, gait not observed. PSYCH: Normal mood, normal affect. SKIN: Warm, dry, normal turgor, no rashes or lesions noted CBCD WBC 17.0 K/mm3 (4.0-10.0) H 06/02/17 06:15 RBC 4.44 M/mm3 (3.60-5.2) 06/02/17 06:15 Hgb 12.9 GM/dL (10.7-15.3) 06/02/17 06:15 Hct 38.7 % (32.4-45.2) 06/02/17 06:15 MCV 87.2 fl (80-96) 06/02/17 06:15 MCHC 33.4 g/dl (32.0-36.0) 06/02/17 06:15 RDW 13.0 % (11.6-15.6) 06/02/17 06:15 Plt Count 215 K/MM3 (134-434) 06/02/17 06:15 MPV 9.9 fl (7.5-11.1) 06/02/17 06:15 CMP Sodium 141 mmol/L (136-145) 06/02/17 06:15 Potassium 3.4 mmol/L (3.5-5.1) L 06/02/17 06:15 Chloride 97 mmol/L (98-107) L 06/02/17 06:15 Carbon Dioxide 33 mmol/L (21-32) H 06/02/17 06:15 Anion Gap 11 (8-16) 06/02/17 06:15 BUN 23 mg/dL (7-18) H 06/02/17 06:15 Creatinine 0.6 mg/dL (0.55-1.02) 06/02/17 06:15 Creat Clearance w eGFR > 60 (>60) 06/02/17 06:15 Random Glucose 141 mg/dL (74-106) H 06/02/17 06:15 Calcium 8.2 mg/dL (8.5-10.1) L 06/02/17 06:15 Total Bilirubin 0.8 mg/dL (0.2-1.0) 06/02/17 06:15 AST 185 U/L (15-37) H 06/02/17 06:15 ALT 246 U/L (12-78) H 06/02/17 06:15 Alkaline Phosphatase 112 U/L (45-117) 06/02/17 06:15 Total Protein 7.5 g/dl (6.4-8.2) 06/02/17 06:15 Albumin 2.7 g/dl (3.4-5.0) L 06/02/17 06:15 CARDIAC ENZYMES Creatine Kinase 67 IU/L (26-192) 05/29/17 12:15 Troponin I 0.33 ng/ml (0.00-0.05) H 05/29/17 19:10 Current Medications Generic Name Dose Route Start Last Admin Trade Name Amy PRN Reason Stop Dose Admin Amlodipine Besylate 10 mg 05/28/17 10:00 06/02/17 09:56 Norvasc - PO 10 mg DAILY THANH Administration Apixaban 5 mg 05/30/17 22:00 06/02/17 09:56 Eliquis - PO 5 mg BID THANH Administration Fluoxetine HCl 10 mg 05/27/17 10:00 11/12/17 09:57 Prozac - PO 10 mg DAILY THANH Administration Hydralazine HCl 10 mg 05/30/17 09:15 06/02/17 09:56 Apresoline - PO 10 mg BID HTANH Administration Insulin Aspart 1 vial 05/27/17 18:00 06/02/17 12:06 Novolog Vial Sliding Scale - SQ 8 units Q6HPO THANH Administration Protocol Metoprolol Tartrate 25 mg 05/31/17 22:00 06/02/17 09:56 Lopressor - PO 25 mg BID THANH Administration Nystatin 500,000 units 05/29/17 18:00 06/02/17 12:06 Nystatin Oral Suspension - PO 500,000 units Q6HPO THANH Administration Nystatin 1 applic 05/30/17 11:00 06/02/17 09:57 Nystop Powder - TP 1 applic DAILY THANH Administration Prednisone 40 mg 05/29/17 12:45 06/02/17 09:56 Deltasone - PO 40 mg DAILY THANH Administration Pyridostigmine [place] 30 mg 05/31/17 11:09 06/02/17 06:07 Mestinon - PO 30 mg TID THANH Administration Home Medications Medication Instructions Recorded Amlodipine Besylate/Benazepril 1 cap PO BID 05/24/17 [Lotrel 10-20 mg Capsule] Amoxicillin/Potassium Clav 1 each PO DAILY 05/24/17 [Augmentin 875-125 Tablet] Fluoxetine HCl 10 mg PO DAILY 05/24/17 Hydralazine HCl 10 mg PO BID 05/24/17 Metformin HCl [Glucophage] 500 mg PO BID 05/24/17 Pantoprazole Sodium 40 mg PO DAILY 05/24/17 Potassium Chloride 10 meq PO DAILY 05/24/17 Pyridostigmine [Mestinon] 60 mg PO TID 05/24/17 Rosuvastatin [Crestor -] 10 mg PO DAILY 05/24/17 A/P: Patient is a 86 y/o lady with h/o HTN, DM , recent diagnosis of Myasthenia Gravis , hyperlipidemia who presented with difficulty swallowing and SOB . Now with irregular heart rate. # Elevated LFTs due to possible to Augmentin use recently or possible use of IVIG. will discontinue, GI consult consult appreciated. will trend the level. since is getting elevated. # New onset AFib: rate controlled, back to sinus now, continue BB and digoxin as per cardiology for VR control. [id number] sore of 5,On Eliquis now , discontinued heparin gtt. # Acute Myasthenia gravis Crisis on pysostigmine , dose was decreased to 30mg from 60mg since was having Diarrhea and GI symptoms ,s/p IVIG daily x 4/5 days, discussed with neurologist and also will discontinue IVIG since LFTs are elevated , all the drugs that go through liver were discontinued , Also on Prednisone per NEuro. needs long taper 40mg x 1 week, 30mg x1wk, 20mg x1wk, 20mg x1 week, 10mg x 1 week , upon discharge patient needs to follow with neurologist within a week period. # Acute heart failure : due to RVR. , ECHo within NL limit . No need to diuress further, patient is Euvolemic. Echocardiogram 05/27/2017: Normal LV systolic function. No regional wall motion abnormalities. Normal RV. No significant valvular abnormalities. # NSTEMI due to demand ischemia in the setting of rapid A fib . No ST changes. Troponin is slightly elevated today. # s/p Acute hypoxic hypercapnic respiratory failure due to MG crisis on Bipap prn. # HTN Uncontrolled on BB to 25mg BID, will monitor , will resume her home hydralazine # Leukocytosis : has a recent UTI which was partially treated as out pt . On IV antibiotic continue, Neg C diff, so culture is negative , cont empiric CTX # Difficulty with swallowing , will get [facility] speech therapist to evaluate the patient. DVT Px: Eliquis Visit type - Emergency Visit Emergency Visit: Yes ED Registration Date: 05/24/17 Care time: The patient presented to the Emergency Department on the above date and was hospitalized for further evaluation of their emergent condition. - New Patient This patient is new to me today: No - Critical Care Critical Care patient: No
--- NOTE | 2017-06-02 15:14 | PN ---
Progress Note (short form) - Note Progress Note: PULMONARY States breathing continues to improve. Last Vital Signs Temp Pulse Resp BP Pulse Ox 98.2 F 69 18 120/56 98 06/02/17 14:08 06/02/17 14:08 06/02/17 14:08 06/02/17 14:08 06/02/17 14:00 Gen: NAD in chair Heart: RRR Lung: decreased breath sounds at the bases Abd: soft, nontender Ext: no edema CBC, BMP 06/02/17 06:15 06/02/17 06:15 Active Medications Amlodipine Besylate (Norvasc -) 10 mg PO DAILY [facility] Last Admin: 06/02/17 09:56 Dose: 10 mg Apixaban (Eliquis -) 5 mg PO BID [facility] Last Admin: 06/02/17 09:56 Dose: 5 mg Fluoxetine HCl (Prozac -) 10 mg PO DAILY [facility] Last Admin: 06/02/17 09:57 Dose: 10 mg Hydralazine HCl (Apresoline -) 10 mg PO BID [facility] Last Admin: 06/02/17 09:56 Dose: 10 mg Insulin Aspart (Novolog Vial Sliding Scale -) 1 vial SQ Q6HPO [facility] PRN Reason: Protocol Last Admin: 06/02/17 12:06 Dose: 8 units Metoprolol Tartrate (Lopressor -) 25 mg PO BID [facility] Last Admin: 06/02/17 09:56 Dose: 25 mg Nystatin (Nystatin Oral Suspension -) 500,000 units PO Q6HPO [facility] Last Admin: 06/02/17 12:06 Dose: 500,000 units Nystatin (Nystop Powder -) 1 applic TP DAILY [facility] Last Admin: 06/02/17 09:57 Dose: 1 applic Prednisone (Deltasone -) 40 mg PO DAILY [facility] Last Admin: 06/02/17 09:56 Dose: 40 mg Pyridostigmine [place] (Mestinon -) 30 mg PO TID [facility] Last Admin: 06/02/17 14:31 Dose: 30 mg A/P Acute Hypercapneic Respiratory Failure improving Myasthenia Gravis Exacerbation Atrial Fibrillation HTN DM Hyperlipidemia - continue mestinon - IVIG per neuro - will start prednisone taper back to 10mg daily - BiPAP as needed - O2 to keep SpO2 >90% - continue anticoagulation
[2017-06-03] MEDS: INSULIN SLIDING SCALE (NOVOLOG) 1 VIAL SQ SCH ×4 (00:04→17:22)
[2017-06-03] MEDS: NYSTATIN 500,000 UNITS/5 ML SUSPENSION PO SCH ×4 (00:30→19:08)
[2017-06-03 06:11] LABS: SERUM IRON 204 ug/dL (27-139); TOTAL IRON BINDING CAPACITY < 221 ug/dL (250-450); UIBC < 17 ug/dL (118-369)
[2017-06-03] MEDS: PYRIDOSTIGMINE BROMIDE 60 MG TABLET PO SCH ×3 (06:41→21:20)
--- NOTE | 2017-06-03 07:59 | PN ---
Progress Note (short form) - Note Progress Note: Patient with MG, sp IVIG. On mestinon/prednisone taper. Strength is subjectively stable but patient eager to go to rehabilitation. Issue has been elevated liver enzymes, to be checked again today. Level Of Consciousness: Yes: Alert, Oriented to Person, Oriented to Place, Oriented to Time Eyes: Yes: BEBE Dominant Hand: Right Mini Mental Exam: Awake, alert, follows all commands, Cranial Nerves II-XII Intact: slight dysconjugate gaze though EOMI, Gag: Present DTR's: 0 Left Achilles, 0 Right Achilles, 1+ Left Bicep, 1+ Right Bicep, 1+ Left Tricep, 1+ Right Tricep, 1+ Left Brachioradialis, 1+ Right Brachioradialis Babinski: Absent Response to light touch: Normal Response to pain prick: Normal Response to vibration: Normal Motor Strength: 5/5:weakness deltoid R >L 4/5 , TR R 4+/5, L 5/5, LE 5/5 Plan: Check LFT's again today. Rehab when medically stable.
[2017-06-03 09:14] LABS: ALBUMIN 2.6 g/dl (3.4-5.0); ANION GAP 4 (8-16); BILIRUBIN,TOTAL 0.8 mg/dL (0.2-1.0); CALCIUM 8.5 mg/dL (8.5-10.1); CO2 37 mmol/L (21-32); CREATININE 0.9 mg/dL (0.55-1.02); GLUCOSE,RANDOM 298 mg/dL (74-106); SGOT/AST 174 U/L (15-37); SGPT/ALT 257 U/L (12-78); TOT PROT 7.1 g/dl (6.4-8.2)
[2017-06-03 09:15] LABS: ALK PHOS 113 U/L (45-117)
[2017-06-03] MEDS ORDERED: PT OWN MED DRAWER 7, Y5N ONE ×4 (09:16→15:38)
[2017-06-03] MEDS: FLUoxetine HCL 10 MG CAPSULE (FP) PO SCH (09:49)
[2017-06-03] MEDS: predniSONE 20 MG TABLET (UD) PO SCH (09:50)
[2017-06-03] MEDS: APIXABAN 5 MG TABLET PO SCH ×2 (09:51→21:16)
[2017-06-03] MEDS: amLODIPine BESYLATE 10 MG TABLET (FP) PO SCH (09:51)
[2017-06-03] MEDS: hydrALAZINE HCL 10 MG TABLET PO SCH ×2 (09:51→21:16)
[2017-06-03] MEDS: METOPROLOL TARTRATE 25 MG TABLET (FP) PO SCH ×2 (09:51→21:16)
--- NOTE | 2017-06-03 11:20 | PN ---
Progress Note, Physician History of Present Illness: pulmonary alert,nad,-sob,-cp,-cough - Current Medication List Current Medications: Active Medications Amlodipine Besylate (Norvasc -) 10 mg PO DAILY [facility] Last Admin: 06/03/17 09:51 Dose: 10 mg Apixaban (Eliquis -) 5 mg PO BID [facility] Last Admin: 06/03/17 09:51 Dose: 5 mg Fluoxetine HCl (Prozac -) 10 mg PO DAILY [facility] Last Admin: 06/03/17 09:49 Dose: 10 mg Hydralazine HCl (Apresoline -) 10 mg PO BID [facility] Last Admin: 06/03/17 09:51 Dose: 10 mg Insulin Aspart (Novolog Vial Sliding Scale -) 1 vial SQ Q6HPO [facility] PRN Reason: Protocol Last Admin: 06/03/17 06:40 Dose: Not Given Metoprolol Tartrate (Lopressor -) 25 mg PO BID [facility] Last Admin: 06/03/17 09:51 Dose: 25 mg Nystatin (Nystatin Oral Suspension -) 500,000 units PO Q6HPO [facility] Last Admin: 06/03/17 06:41 Dose: 500,000 units Nystatin (Nystop Powder -) 1 applic TP DAILY [facility] Last Admin: 06/02/17 09:57 Dose: 1 applic Prednisone (Deltasone -) 30 mg PO DAILY [facility] Last Admin: 06/03/17 09:50 Dose: 30 mg Pyridostigmine [place] (Mestinon -) 30 mg PO TID [facility] Last Admin: 06/03/17 06:41 Dose: 30 mg - Objective Vital Signs: Vital Signs Temperature 98.7 F 06/03/17 08:54 Pulse Rate 72 06/03/17 08:54 Respiratory Rate 16 06/03/17 08:54 Blood Pressure 110/51 06/03/17 08:54 O2 Sat by Pulse Oximetry (%) 98 06/03/17 09:00 Constitutional: Yes: Well Nourished, Calm Eyes: Yes: WNL HENT: Yes: WNL Neck: Yes: WNL Cardiovascular: Yes: Pulse Irregular, S1, S2 Respiratory: Yes: Diminished Gastrointestinal: Yes: Normal Bowel Sounds, Soft Extremities: Yes: WNL Edema: No Labs: CBC, BMP 06/02/17 06:15 06/03/17 08:30 INR, PTT INR 0.88 (0.82-1.09) 05/26/17 10:35 Problem List - Problems (1) Shortness of breath Code(s): R06.02 - SHORTNESS OF BREATH (2) Acute hypercapnic respiratory failure Code(s): J96.02 - ACUTE RESPIRATORY FAILURE WITH HYPERCAPNIA Assessment/Plan Problem List - Problems (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
[2017-06-03] MEDS: NYSTATIN POWDER 100,000 UNITS/GM - 15 GM TOPICAL POWDER TP SCH (11:24)
[2017-06-03] MEDS ORDERED: INSULIN (NOVOLOG) ASPART 100 UNITS/ML 10ML VIAL ONE (11:27)
[2017-06-03] MEDS ORDERED: POTASSIUM CHLORIDE TABS 20 MEQ TABLET.ER (FP) PO ONE (11:40)
--- NOTE | 2017-06-03 13:13 | PN ---
Progress Note, RECYCLE DRIVER - Note Progress Note: Based on MBS, chopped diet with 1-2 soft items and thin liquid recommended. Selected Entries 06/01/17 06/01/17 06/01/17 11:18 15:46 19:37 Breakfast 50% Lunch 50% Supper 75% Temperature 06/02/17 06/02/17 06/02/17 03:00 06:02 10:00 Breakfast Lunch Supper Temperature 98.1 F 98.4 F 98 F 06/02/17 06/02/17 06/02/17 14:08 14:09 17:00 Breakfast 50% Lunch 50% Supper Temperature 98.2 F 97.5 F L 06/02/17 06/02/17 06/03/17 19:09 21:00 01:00 Breakfast Lunch Supper 50% Temperature 97.8 F 97.9 F 06/03/17 06/03/17 05:00 08:54 Breakfast Lunch Supper Temperature 98.6 F 98.7 F Laboratory Tests 05/30/17 05/31/17 06/01/17 06:00 05:19 06:00 WBC 13.7 H 14.1 H 15.7 H 06/02/17 06:15 WBC 17.0 H Chpped and thin ordered and tolerating it well. Please add 1-2 soft items per tray that pt can easily chew.
[2017-06-03] MEDS ORDERED: HEPARIN NA (PORCINE) 5,000 UNITS/ML 1ML VIAL IVPUSH PRN ×2 (14:57)
--- NOTE | 2017-06-03 15:34 | PN ---
Physical Exam: SUBJECTIVE: Patient seen and examined. Pt feels lethargic today, but denies nausea, diarrhea, and difficulty swallowing. Pt moved off Telemetry. Pt reports not using the bipap for the last 2 nights. Pt trialed on no O2, satting 94-95%; pt will continue off nasal cannula for now. No events overnight. OBJECTIVE: Vital Signs Period Temp Pulse Resp BP Sys/Coulter Pulse Ox Last 24 Hr 97.5 F-98.7 F 49-72 16-20 110-152/51-70 98-98 GENERAL: The patient is awake, alert, and fully oriented, in no acute distress. HEAD: Normal with no signs of trauma. EYES: Extraocular movements intact, sclera anicteric, conjunctiva clear. No ptosis. ENT: Moist mucous membranes. NECK: Trachea midline, supple. LUNGS: Breath sounds equal, clear to auscultation bilaterally, no wheezes, no crackles, no accessory muscle use. HEART: Regular rate and rhythm, +S1/S2. ABDOMEN: Soft, nontender, nondistended. EXTREMITIES: Warm, well-perfused, no edema. NEUROLOGICAL: Normal speech, gait not observed. PSYCH: Normal mood, normal affect. SKIN: Warm, dry, normal turgor, no rashes or lesions noted Laboratory Results - last 24 hr 06/02/17 06/02/17 06/02/17 06:15 06:15 17:20 Sodium Potassium Chloride Carbon Dioxide Anion Gap BUN Creatinine Creat Clearance w eGFR POC Glucometer 211 Random Glucose Calcium Iron 204 H TIBC < 221 L Iron Saturation > 92 H Total Bilirubin AST ALT Alkaline Phosphatase Total Protein Albumin Hepatitis A IgM Ab Negative Hep Bs Antigen Negative Hep B Core IgM Ab Negative Hepatitis C Antibody 0.2 06/02/17 06/03/17 06/03/17 22:10 05:31 08:30 Sodium 137 Potassium 3.4 L Chloride 96 L Carbon Dioxide 37 H Anion Gap 4 L BUN 28 H D Creatinine 0.9 D Creat Clearance w eGFR 59.23 POC Glucometer 273 132 Random Glucose 298 H D Calcium 8.5 Iron TIBC Iron Saturation Total Bilirubin 0.8 AST 174 H ALT 257 H Alkaline Phosphatase 113 Total Protein 7.1 Albumin 2.6 L Hepatitis A IgM Ab Hep Bs Antigen Hep B Core IgM Ab Hepatitis C Antibody 06/03/17 11:25 Sodium Potassium Chloride Carbon Dioxide Anion Gap BUN Creatinine Creat Clearance w eGFR POC Glucometer 267 Random Glucose Calcium Iron TIBC Iron Saturation Total Bilirubin AST ALT Alkaline Phosphatase Total Protein Albumin Hepatitis A IgM Ab Hep Bs Antigen Hep B Core IgM Ab Hepatitis C Antibody Active Medications Generic Name Dose Route Start Last Admin Trade Name Freq PRN Reason Stop Dose Admin Amlodipine Besylate 10 mg 05/28/17 10:00 06/03/17 09:51 Norvasc - PO 10 mg DAILY THANH Administration Apixaban 5 mg 05/30/17 22:00 06/03/17 09:51 Eliquis - PO 5 mg BID THANH Administration Fluoxetine HCl 10 mg 06/04/17 10:00 Prozac - PO DAILY THANH Heparin Sodium (Porcine) 1,000 unit 06/03/17 14:57 Heparin - IVPUSH PRN PRN Heparin Heparin Sodium (Porcine) 5,000 unit 06/03/17 14:57 Heparin - IVPUSH PRN PRN Heparin Hydralazine HCl 10 mg 05/30/17 09:15 06/03/17 09:51 Apresoline - PO 10 mg BID THANH Administration Insulin Aspart 1 vial 05/27/17 18:00 06/03/17 11:37 Novolog Vial Sliding Scale - SQ 4 units Q6HPO THANH Administration Protocol Metoprolol Tartrate 25 mg 05/31/17 22:00 06/03/17 09:51 Lopressor - PO 25 mg BID THANH Administration Nystatin 500,000 units 05/29/17 18:00 06/03/17 11:36 Nystatin Oral Suspension - PO 500,000 units Q6HPO THANH Administration Nystatin 1 applic 05/30/17 11:00 06/03/17 11:24 Nystop Powder - TP 1 applic DAILY THANH Administration Prednisone 30 mg 06/03/17 10:00 06/03/17 09:50 Deltasone - PO 30 mg DAILY THANH Administration Pyridostigmine [place] 30 mg 05/31/17 11:09 06/03/17 06:41 Mestinon - PO 30 mg TID THANH Administration IMAGIN06/02/17 US Ab -> coarsened hepatic echo texture suggestive of hepatic steatosis. No significant intra- or extra-hepatic biliary ductal dilation. No hydronephrosis, normal size kidneys. ASSESSMENT/PLAN: 86yo F with PMH of myesthenia gravis, DM, htn, hld, presents with diarrhea x 2 weeks, found to have new onset afib. # transaminitis - likely 2/2 a combination of Augmentin prior to admission and IVIG (D/Ronni after 4th dose) - LFTs have essentially plateaued, continue to monitor # new onset afib possibly 2/2 myesthenia crisis - heart rate now controlled - continue Metoprolol and Eliquis - avoid Cardizem 2/2 myesthenia gravis # acute heart failure, in the setting of afib with RVR - no need to diurese further as pt is euvolemic - daily wts - strict I&O's - watch for volume depletion # Myesthenia Gravis - Pyridostigmine reduced to 30mg TID 2/2 diarrhea -> diarrhea is now improved - continue Prednisone - hyperglycemia likely 2/2 Prednisone - long course taper will be necessary - Neurology following # leukocytosis - blood culture (-) x 5 days - s/p 5 days of IV Cetriaxone, Ceftriaxone D/Ronni # hypokalemia - repleted with K-dur po 40meq - continue to monitor # htn - continue Norvasc, Hydralazine, and Lopressor # DM - Novolog SSI - BGMs # FEN - Fluids: encouraged po intake - Electrolytes: hypokalemia, continue to monitor - Nutrition: chopped with thin liquids # Prophylaxis - DVT ppx with Eliquis - deconditioning ppx with PT Consult Visit type - Emergency Visit Emergency Visit: Yes ED Registration Date: 05/24/17 Care time: The patient presented to the Emergency Department on the above date and was hospitalized for further evaluation of their emergent condition. - New Patient This patient is new to me today: No - Critical Care Critical Care patient: No
--- NOTE | 2017-06-03 16:49 | PN ---
Progress Note, Physician History of Present Illness: In good spirit, reports no nausea, vomiting, abdomain pain, fever, chills. - Current Medication List Current Medications: Active Medications Amlodipine Besylate (Norvasc -) 10 mg PO DAILY [facility] Last Admin: 06/03/17 09:51 Dose: 10 mg Apixaban (Eliquis -) 5 mg PO BID [facility] Last Admin: 06/03/17 09:51 Dose: 5 mg Fluoxetine HCl (Prozac -) 10 mg PO DAILY [facility] Hydralazine HCl (Apresoline -) 10 mg PO BID [facility] Last Admin: 06/03/17 09:51 Dose: 10 mg Insulin Aspart (Novolog Vial Sliding Scale -) 1 vial SQ Q6HPO [facility] PRN Reason: Protocol Last Admin: 06/03/17 11:37 Dose: 4 units Metoprolol Tartrate (Lopressor -) 25 mg PO BID [facility] Last Admin: 06/03/17 09:51 Dose: 25 mg Nystatin (Nystatin Oral Suspension -) 500,000 units PO Q6HPO [facility] Last Admin: 06/03/17 11:36 Dose: 500,000 units Nystatin (Nystop Powder -) 1 applic TP DAILY [facility] Last Admin: 06/03/17 11:24 Dose: 1 applic Prednisone (Deltasone -) 30 mg PO DAILY [facility] Last Admin: 06/03/17 09:50 Dose: 30 mg Pyridostigmine [place] (Mestinon -) 30 mg PO TID [facility] Last Admin: 06/03/17 15:33 Dose: 30 mg - Objective Vital Signs: Vital Signs Temperature 98.2 F 06/03/17 14:24 Pulse Rate 62 06/03/17 14:24 Respiratory Rate 18 06/03/17 14:24 Blood Pressure 117/56 06/03/17 14:24 O2 Sat by Pulse Oximetry (%) 98 06/03/17 09:00 Constitutional: Yes: Well Nourished, No Distress, Calm Eyes: Yes: Conjunctiva Clear HENT: Yes: Atraumatic Neck: Yes: Supple Gastrointestinal: Yes: Normal Bowel Sounds, Soft. No: Tenderness Labs: CBC, BMP 06/02/17 06:15 06/03/17 08:30 INR, PTT INR 0.88 (0.82-1.09) 05/26/17 10:35 CBCD WBC 17.0 K/mm3 (4.0-10.0) H 06/02/17 06:15 RBC 4.44 M/mm3 (3.60-5.2) 06/02/17 06:15 Hgb 12.9 GM/dL (10.7-15.3) 06/02/17 06:15 Hct 38.7 % (32.4-45.2) 06/02/17 06:15 MCV 87.2 fl (80-96) 06/02/17 06:15 MCHC 33.4 g/dl (32.0-36.0) 06/02/17 06:15 RDW 13.0 % (11.6-15.6) 06/02/17 06:15 Plt Count 215 K/MM3 (134-434) 06/02/17 06:15 MPV 9.9 fl (7.5-11.1) 06/02/17 06:15 CMP Sodium 137 mmol/L (136-145) 06/03/17 08:30 Potassium 3.4 mmol/L (3.5-5.1) L 06/03/17 08:30 Chloride 96 mmol/L (98-107) L 06/03/17 08:30 Carbon Dioxide 37 mmol/L (21-32) H 06/03/17 08:30 Anion Gap 4 (8-16) L 06/03/17 08:30 BUN 28 mg/dL (7-18) H D 06/03/17 08:30 Creatinine 0.9 mg/dL (0.55-1.02) D 06/03/17 08:30 Creat Clearance w eGFR 59.23 (>60) 06/03/17 08:30 Calcium 8.5 mg/dL (8.5-10.1) 06/03/17 08:30 Total Bilirubin 0.8 mg/dL (0.2-1.0) 06/03/17 08:30 AST 174 U/L (15-37) H 06/03/17 08:30 ALT 257 U/L (12-78) H 06/03/17 08:30 Alkaline Phosphatase 113 U/L (45-117) 06/03/17 08:30 Total Protein 7.1 g/dl (6.4-8.2) 06/03/17 08:30 Albumin 2.6 g/dl (3.4-5.0) L 06/03/17 08:30 Problem List - Problems (1) Hepatitis Code(s): K75.9 - INFLAMMATORY LIVER DISEASE, UNSPECIFIED (2) Abnormal LFTs (liver function tests) Code(s): R79.89 - OTHER SPECIFIED ABNORMAL FINDINGS OF BLOOD CHEMISTRY Assessment/Plan 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 Asymptomatic. Stop all nonessential medications daily hepatic panel may take up to 6 weeks to resolve
--- NOTE | 2017-06-03 20:34 | PN ---
Teaching Attending Note Name of Resident: Addie Caro ATTENDING PHYSICIAN STATEMENT I saw and evaluated the patient. I reviewed the resident's note and discussed the case with the resident. I agree with the resident's findings and plan as documented. SUBJECTIVE: Patient is feeling better with no acute distress. Liver enzymes are trending down now. OBJECTIVE: Vital Signs Temperature 98.2 F 06/03/17 18:38 Pulse Rate 62 06/03/17 18:38 Respiratory Rate 18 06/03/17 18:38 Blood Pressure 127/51 06/03/17 18:38 O2 Sat by Pulse Oximetry (%) 98 06/03/17 09:00 CBCD WBC 17.0 K/mm3 (4.0-10.0) H 06/02/17 06:15 RBC 4.44 M/mm3 (3.60-5.2) 06/02/17 06:15 Hgb 12.9 GM/dL (10.7-15.3) 06/02/17 06:15 Hct 38.7 % (32.4-45.2) 06/02/17 06:15 MCV 87.2 fl (80-96) 06/02/17 06:15 MCHC 33.4 g/dl (32.0-36.0) 06/02/17 06:15 RDW 13.0 % (11.6-15.6) 06/02/17 06:15 Plt Count 215 K/MM3 (134-434) 06/02/17 06:15 MPV 9.9 fl (7.5-11.1) 06/02/17 06:15 CMP Sodium 137 mmol/L (136-145) 06/03/17 08:30 Potassium 3.4 mmol/L (3.5-5.1) L 06/03/17 08:30 Chloride 96 mmol/L (98-107) L 06/03/17 08:30 Carbon Dioxide 37 mmol/L (21-32) H 06/03/17 08:30 Anion Gap 4 (8-16) L 06/03/17 08:30 BUN 28 mg/dL (7-18) H D 06/03/17 08:30 Creatinine 0.9 mg/dL (0.55-1.02) D 06/03/17 08:30 Creat Clearance w eGFR 59.23 (>60) 06/03/17 08:30 Random Glucose 298 mg/dL (74-106) H D 06/03/17 08:30 Calcium 8.5 mg/dL (8.5-10.1) 06/03/17 08:30 Total Bilirubin 0.8 mg/dL (0.2-1.0) 06/03/17 08:30 AST 174 U/L (15-37) H 06/03/17 08:30 ALT 257 U/L (12-78) H 06/03/17 08:30 Alkaline Phosphatase 113 U/L (45-117) 06/03/17 08:30 Total Protein 7.1 g/dl (6.4-8.2) 06/03/17 08:30 Albumin 2.6 g/dl (3.4-5.0) L 06/03/17 08:30 CARDIAC ENZYMES Creatine Kinase 67 IU/L (26-192) 05/29/17 12:15 Troponin I 0.33 ng/ml (0.00-0.05) H 05/29/17 19:10 Current Medications Generic Name Dose Route Start Last Admin Trade Name Amy PRN Reason Stop Dose Admin Amlodipine Besylate 10 mg 05/28/17 10:00 06/03/17 09:51 Norvasc - PO 10 mg DAILY THANH Administration Apixaban 5 mg 05/30/17 22:00 06/03/17 09:51 Eliquis - PO 5 mg BID THANH Administration Fluoxetine HCl 10 mg 06/04/17 10:00 Prozac - PO DAILY THANH Hydralazine HCl 10 mg 05/30/17 09:15 06/03/17 09:51 Apresoline - PO 10 mg BID THANH Administration Insulin Aspart 1 vial 05/27/17 18:00 06/03/17 17:22 Novolog Vial Sliding Scale - SQ 4 units Q6HPO THANH Administration Protocol Metoprolol Tartrate 25 mg 05/31/17 22:00 06/03/17 09:51 Lopressor - PO 25 mg BID THANH Administration Nystatin 500,000 units 05/29/17 18:00 06/03/17 19:08 Nystatin Oral Suspension - PO 500,000 units Q6HPO THANH Administration Nystatin 1 applic 05/30/17 11:00 06/03/17 11:24 Nystop Powder - TP 1 applic DAILY THANH Administration Prednisone 30 mg 06/03/17 10:00 06/03/17 09:50 Deltasone - PO 30 mg DAILY THANH Administration Pyridostigmine [place] 30 mg 05/31/17 11:09 06/03/17 15:33 Mestinon - PO 30 mg TID THANH Administration Home Medications Medication Instructions Recorded Amlodipine Besylate/Benazepril 1 cap PO BID 05/24/17 [Lotrel 10-20 mg Capsule] Amoxicillin/Potassium Clav 1 each PO DAILY 05/24/17 [Augmentin 875-125 Tablet] Fluoxetine HCl 10 mg PO DAILY 05/24/17 Hydralazine HCl 10 mg PO BID 05/24/17 Metformin HCl [Glucophage] 500 mg PO BID 05/24/17 Pantoprazole Sodium 40 mg PO DAILY 05/24/17 Potassium Chloride 10 meq PO DAILY 05/24/17 Pyridostigmine [Mestinon] 60 mg PO TID 05/24/17 Rosuvastatin [Crestor -] 10 mg PO DAILY 05/24/17 Laboratory Tests 05/24/17 05/30/17 05/31/17 13:12 06:00 05:19 Direct Bilirubin AST 26 46 H D 167 H D ALT 26 49 D 150 H D 06/01/17 06/02/17 06/03/17 06:00 06:15 08:30 Direct Bilirubin 0.3 H AST 181 H 185 H 174 H ALT 214 H D 246 H 257 H ASSESSMENT AND PLAN: Patient is a 86 y/o lady with h/o HTN, DM , recent diagnosis of Myasthenia Gravis , hyperlipidemia who presented with difficulty swallowing and SOB . Now with irregular heart rate. # Elevated LFTs due mild drug induced hepatitis to possible to Augmentin use recently or possibly due to IVIG which was discontinued after receiving 4/5 doses of IVIG, post discussion with , neurologist, GI consult appreciated. Patient will be discharged to Rehab. since the LFts are trending down now. may take up to 6 weeks to resolve. # New onset AFib: rate controlled, back to sinus now, continue BB and digoxin as per cardiology for VR control. [id number] sore of 5,On Eliquis continue , s/ p heparin gtt. # Acute Myasthenia gravis Crisis on physostigmine , dose was decreased to 30mg from 60mg since was having Diarrhea and GI symptoms ,s/p IVIG daily x 4/5 days, discussed with neurologist and also will discontinue IVIG since LFTs are elevated , all the drugs that go through liver were discontinued , Also on Prednisone per [facility]. needs long taper 40mg x 1 week, 30mg x1wk, 20mg x1wk, 20mg x1 week, 10mg x 1 week , upon discharge patient needs to follow with neurologist within a week period of the discharge. # Acute heart failure : due to RVR. , ECHo within NL limit . No need to diuress further, patient is Euvolemic. Echocardiogram 05/27/2017: Normal LV systolic function. No regional wall motion abnormalities. Normal RV. No significant valvular abnormalities. # NSTEMI due to demand ischemia in the setting of rapid A fib . No ST changes. Troponin is slightly elevated today. # s/p Acute hypoxic hypercapnic respiratory failure due to MG crisis on Bipap prn. # HTN controlled now continue BB, 25mg po BID, also continue home hydralazine # Leukocytosis : due to being on Steroid , also with hx of a recent UTI which was partially treated as out pt , s/p IV antibiotics. Neg C-diff, so culture is negative. # Swallowing evaluation was done by [facility] speech therapist. With recommendation of Chopped and thin ordered and tolerating it well. also recommend 1-2 soft items per tray that pt can easily chewed. DVT Px: Nathan
[2017-06-04] MEDS: INSULIN SLIDING SCALE (NOVOLOG) 1 VIAL SQ SCH ×3 (01:01→11:35)
[2017-06-04] MEDS: NYSTATIN 500,000 UNITS/5 ML SUSPENSION PO SCH ×3 (01:02→11:18)
[2017-06-04] MEDS: PYRIDOSTIGMINE BROMIDE 60 MG TABLET PO SCH (06:27)
[2017-06-04 07:24] LABS: MCH 29.2 pg (25.7-33.7); MCHC 33.6 g/dl (32.0-36.0); MEAN CELL VOLUME 86.7 fl (80-96); MEAN PLT VOLUME 9.5 fl (7.5-11.1); PLATELET COUNT 210 K/MM3 (134-434); RDW 12.7 % (11.6-15.6); WHITE BLOOD COUNT 17.2 K/mm3 (4.0-10.0)
[2017-06-04 08:11] LABS: ALBUMIN 2.7 g/dl (3.4-5.0); ANION GAP 9 (8-16); CALCIUM 8.1 mg/dL (8.5-10.1); CO2 34 mmol/L (21-32); CREATININE 0.9 mg/dL (0.55-1.02); GLUCOSE,RANDOM 143 mg/dL (74-106); SGOT/AST 122 U/L (15-37); SGPT/ALT 238 U/L (12-78)
[2017-06-04 08:13] LABS: ALK PHOS 107 U/L (45-117); BILIRUBIN,TOTAL 0.7 mg/dL (0.2-1.0); TOT PROT 7.1 g/dl (6.4-8.2)
[2017-06-04] MEDS ORDERED: PT OWN MED DRAWER 7, Y5N ONE (09:04)
[2017-06-04] MEDS ORDERED: FLUoxetine HCL 10 MG CAPSULE (FP) PO SCH (10:00)
[2017-06-04] MEDS: hydrALAZINE HCL 10 MG TABLET PO SCH (10:18)
[2017-06-04] MEDS: METOPROLOL TARTRATE 25 MG TABLET (FP) PO SCH (10:18)
[2017-06-04] MEDS: APIXABAN 5 MG TABLET PO SCH (10:18)
[2017-06-04] MEDS: predniSONE 20 MG TABLET (UD) PO SCH (10:18)
[2017-06-04] MEDS: NYSTATIN POWDER 100,000 UNITS/GM - 15 GM TOPICAL POWDER TP SCH (10:20)
--- NOTE | 2017-06-04 11:12 | PN ---
Progress Note, Physician History of Present Illness: In good spirit, reports no nausea, vomiting, abdomain pain, fever, chills. - Current Medication List Current Medications: Active Medications Amlodipine Besylate (Norvasc -) 10 mg PO DAILY [facility] Last Admin: 06/03/17 09:51 Dose: 10 mg Apixaban (Eliquis -) 5 mg PO BID [facility] Last Admin: 06/04/17 10:18 Dose: 5 mg Fluoxetine HCl (Prozac -) 10 mg PO DAILY [facility] Last Admin: 06/04/17 10:18 Dose: 10 mg Hydralazine HCl (Apresoline -) 10 mg PO BID [facility] Last Admin: 06/04/17 10:18 Dose: 10 mg Insulin Aspart (Novolog Vial Sliding Scale -) 1 vial SQ Q6HPO [facility] PRN Reason: Protocol Last Admin: 06/04/17 06:28 Dose: Not Given Metoprolol Tartrate (Lopressor -) 25 mg PO BID [facility] Last Admin: 06/04/17 10:18 Dose: 25 mg Nystatin (Nystatin Oral Suspension -) 500,000 units PO Q6HPO [facility] Last Admin: 06/04/17 06:28 Dose: 500,000 units Nystatin (Nystop Powder -) 1 applic TP DAILY [facility] Last Admin: 06/04/17 10:20 Dose: 1 applic Prednisone (Deltasone -) 30 mg PO DAILY [facility] Last Admin: 06/04/17 10:18 Dose: 30 mg Pyridostigmine [place] (Mestinon -) 30 mg PO TID [facility] Last Admin: 06/04/17 06:27 Dose: 30 mg - Objective Vital Signs: Vital Signs Temperature 97.5 F L 06/04/17 06:00 Pulse Rate 52 L 06/04/17 06:00 Respiratory Rate 18 06/04/17 06:00 Blood Pressure 141/62 06/04/17 06:00 O2 Sat by Pulse Oximetry (%) 96 06/04/17 01:15 Constitutional: Yes: Well Nourished, No Distress, Calm Eyes: Yes: Conjunctiva Clear Gastrointestinal: Yes: Normal Bowel Sounds, Soft. No: Tenderness, Vomiting Neurological: Yes: Alert, Oriented Labs: CBC, BMP 06/04/17 06:30 06/04/17 06:30 INR, PTT INR 0.88 (0.82-1.09) 05/26/17 10:35 CBCD WBC 17.2 K/mm3 (4.0-10.0) H 06/04/17 06:30 RBC 4.32 M/mm3 (3.60-5.2) 06/04/17 06:30 Hgb 12.6 GM/dL (10.7-15.3) 06/04/17 06:30 Hct 37.4 % (32.4-45.2) 06/04/17 06:30 MCV 86.7 fl (80-96) 06/04/17 06:30 MCHC 33.6 g/dl (32.0-36.0) 06/04/17 06:30 RDW 12.7 % (11.6-15.6) 06/04/17 06:30 Plt Count 210 K/MM3 (134-434) 06/04/17 06:30 MPV 9.5 fl (7.5-11.1) 06/04/17 06:30 CMP Sodium 139 mmol/L (136-145) 06/04/17 06:30 Potassium 4.2 mmol/L (3.5-5.1) D 06/04/17 06:30 Chloride 96 mmol/L (98-107) L 06/04/17 06:30 Carbon Dioxide 34 mmol/L (21-32) H 06/04/17 06:30 Anion Gap 9 (8-16) 06/04/17 06:30 BUN 29 mg/dL (7-18) H 06/04/17 06:30 Creatinine 0.9 mg/dL (0.55-1.02) 06/04/17 06:30 Creat Clearance w eGFR 59.23 (>60) 06/04/17 06:30 Calcium 8.1 mg/dL (8.5-10.1) L 06/04/17 06:30 Total Bilirubin 0.7 mg/dL (0.2-1.0) 06/04/17 06:30 AST 122 U/L (15-37) H D 06/04/17 06:30 ALT 238 U/L (12-78) H 06/04/17 06:30 Alkaline Phosphatase 107 U/L (45-117) 06/04/17 06:30 Total Protein 7.1 g/dl (6.4-8.2) 06/04/17 06:30 Albumin 2.7 g/dl (3.4-5.0) L 06/04/17 06:30 Problem List - Problems (1) Hepatitis Code(s): K75.9 - INFLAMMATORY LIVER DISEASE, UNSPECIFIED (2) Abnormal LFTs (liver function tests) Code(s): R79.89 - OTHER SPECIFIED ABNORMAL FINDINGS OF BLOOD CHEMISTRY Assessment/Plan 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 hepatic panel shows some improvement today. Asymptomatic. Stop all nonessential medications daily hepatic panel may take up to 6 weeks to resolve
[2017-06-04] MEDS: amLODIPine BESYLATE 10 MG TABLET (FP) PO SCH (11:18)
[2017-06-04 12:25] VITALS: BP 113/51; PULSE 65; TEMP 97.8
--- NOTE | 2017-06-04 12:46 | DS ---
Physical Exam: SUBJECTIVE: Patient seen and examined. Pt feeling well today. Pt reports one episode of diarrhea after dinner last night. Pt denies nausea, fever, chills, chest pain, abdominal pain. No events overnight. OBJECTIVE: Vital Signs Period Temp Pulse Resp BP Sys/Coulter Pulse Ox Last 24 Hr 97.5 F-98.6 F 52-62 18-18 117-148/51-74 96-96 PHYSICAL EXAM GENERAL: The patient is awake, alert, and fully oriented, in no acute distress. HEAD: Normal with no signs of trauma. EYES: Extraocular movements intact, sclera anicteric, conjunctiva clear. ENT: Moist mucous membranes. NECK: Trachea midline, supple. LUNGS: Breath sounds equal, clear to auscultation bilaterally, no wheezes, no crackles, no accessory muscle use. HEART: Persistent 3/6 systolic murmur, heard best in mitral region -> echo wnl. Regular rate and rhythm. ABDOMEN: Soft, nontender, nondistended, normoactive bowel sounds, no guarding, no rebound, no masses. EXTREMITIES: Warm, well-perfused, no edema. NEUROLOGICAL: Cranial nerves II through XII grossly intact. Normal speech, gait not observed. PSYCH: Normal mood, normal affect. SKIN: Warm, dry, normal turgor, no rashes or lesions noted. LABS Laboratory Results - last 24 hr 06/02/17 06/02/17 06/02/17 06:15 06:15 06:15 WBC RBC Hgb Hct MCV MCH MCHC RDW Plt Count MPV Sodium Potassium Chloride Carbon Dioxide Anion Gap BUN Creatinine Creat Clearance w eGFR POC Glucometer Random Glucose Calcium Total Bilirubin AST ALT Alkaline Phosphatase Total Protein Albumin YEFRI Screen Negative Hepatitis A IgM Ab Negative Hep Bs Antigen Negative Hep B Core IgM Ab Negative Hepatitis C Antibody 0.2 06/03/17 06/03/17 06/04/17 16:47 22:13 01:01 WBC RBC Hgb Hct MCV MCH MCHC RDW Plt Count MPV Sodium Potassium Chloride Carbon Dioxide Anion Gap BUN Creatinine Creat Clearance w eGFR POC Glucometer 262 264 179 Random Glucose Calcium Total Bilirubin AST ALT Alkaline Phosphatase Total Protein Albumin YEFRI Screen Hepatitis A IgM Ab Hep Bs Antigen Hep B Core IgM Ab Hepatitis C Antibody 06/04/17 06/04/17 06/04/17 06:27 06:30 06:30 WBC 17.2 H RBC 4.32 Hgb 12.6 Hct 37.4 MCV 86.7 MCH 29.2 MCHC 33.6 RDW 12.7 Plt Count 210 MPV 9.5 Sodium 139 Potassium 4.2 D Chloride 96 L Carbon Dioxide 34 H Anion Gap 9 BUN 29 H Creatinine 0.9 Creat Clearance w eGFR 59.23 POC Glucometer 141 Random Glucose 143 H D Calcium 8.1 L Total Bilirubin 0.7 AST 122 H D ALT 238 H Alkaline Phosphatase 107 Total Protein 7.1 Albumin 2.7 L YEFRI Screen Hepatitis A IgM Ab Hep Bs Antigen Hep B Core IgM Ab Hepatitis C Antibody 06/04/17 11:03 WBC RBC Hgb Hct MCV MCH MCHC RDW Plt Count MPV Sodium Potassium Chloride Carbon Dioxide Anion Gap BUN Creatinine Creat Clearance w eGFR POC Glucometer 235 Random Glucose Calcium Total Bilirubin AST ALT Alkaline Phosphatase Total Protein Albumin YEFRI Screen Hepatitis A IgM Ab Hep Bs Antigen Hep B Core IgM Ab Hepatitis C Antibody HOSPITAL COURSE: Date of Admission:05/24/17 Date of Discharge: 06/04/17 86yo F with PMH of myesthenia gravis, DM, htn, hld, presents with diarrhea x 2 weeks, found to have new onset afib. Pt treated for Myasthenia Gravis Crisis with 4 doses of IVIG and Prednisone. Pt to f/u with Neurology (Dr. Simons) regarding Prednisone taper (30mg x 1 week, 20mg x 1 week, 10mg x 1 week, 5mg x 1 week). Pt continued on her home medication of Pyridostigmine, however, dose was reduced to 30mg TID 2/2 persistent diarrhea and diarrhea improved after dose reduction. Prior to adm, pt took an Augmentin (does not recall how many doses). Pt experienced transaminitis, most likely 2/2 a combination of Augmentin prior to admission and IVIG (D/Ronni after 4th dose). LFTs were monitored and trending down prior to discharge. Pt found to have new onset afib possibly 2/2 myesthenia crisis. Pt started on Eliquis and Lopressor. Pt had leukocytosis, treated with empiric Ceftriaxone. Pt s/p 5 days of IV Ceftriaxone. 05/24/17 CXR -> no definite infiltrate 05/26/17 CXR -> increased congestive changes, prominent mayco 05/27/17 Echo -> normal Left venticular size and function 05/27/17 CXR -> slightly better inspiration, no other changes from prior 05/27/17 Renal US -> no hydronephrosis, normal size kidney, pyelonephritis cannot be ruled out. 05/29/17 CXR -> no acute chest process 05/31/17 MBS -> chopped diet with thin liquids 06/01/17 Ab xray -> no evidence of fecal retention or acute pathology 06/02/17 Ab US -> coarsened hepatic echo texture suggestive of hepatic steatosis. No significant intra- or extra-hepatic biliary ductal dilatation. No hydronephrosis, normal size kidney. Stool culture, c-diff, urine culture, all (-). Blood culture (-) x 5 days. 05/30/17 C-diff again (-). Pt followed by Speech Therapy, and cleared for chopped diet with thin liquids. Pt ambulated 60 feet with PT. Pt stable for discharge to SNF. Minutes to complete discharge: 35 Discharge Summary Reason For Visit: SOB, DIARRHEA, HYPOKALEMIA Condition: Improved - Instructions Diet, Activity, Other Instructions: You were treated for a Myasthenia Gravis Crisis which induced a new onset atrial fibrillation. You were taking Pyridostigmine (Mestinon) for your Myasthenia Gravis and you were experiencing frequent diarrhea. When the dose of Mestinon was decreased, your diarrhea resolved. You took Prednisone (a steroid) for your Myasthenia Gravis Crisis, and this medication will need to be tapered down over a long period of time. Follow-up with your Neurologist (Dr. Simons) regarding this taper. For your new onset atrial fibrillation you began taking Eliquis for anticoagulation, which you will need to continue taking indefinitely. Prednisone taper = 30mg daily x 7 days, 20mg daily x 7 days, 10mg daily x 7 days , 5mg daily x 7 days, then stop taking Prednisone. Please continue to take your medications as prescribed. Please continue to eat a soft/chopped diet with thin liquids. Please resume physical activity as tolerated. Please schedule a follow-up appointment with you Primary Care Doctor (Dr. Perez) within 1 week of leaving the hospital. Please schedule a follow-up appointment with your Neurologist (Dr. Simons) within 1 week of leaving the hospital. Please return to the hospital immediately if you experience persistent or increased difficulty breathing, weakness, or for any medical emergency. Referrals: Micky Perez [Primary Care Provider] - 1 Week Yonatan Simons DO [Staff Physician] - 1 Week Disposition: [facility] FACILITY - Home Medications Comprehensive Discharge Medication List: Ambulatory Orders Amlodipine Besylate/Benazepril [Lotrel 10-20 mg Capsule] 1 cap PO BID 05/24/17 Fluoxetine HCl 10 mg PO DAILY 05/24/17 Hydralazine HCl 10 mg PO BID 05/24/17 Metformin HCl [Glucophage] 500 mg PO BID 05/24/17 Pantoprazole Sodium 40 mg PO DAILY 05/24/17 Potassium Chloride 10 meq PO DAILY 05/24/17 Rosuvastatin [Crestor -] 10 mg PO DAILY 05/24/17 Apixaban [Eliquis -] 5 mg PO BID #60 tablet 06/04/17 Metoprolol Tartrate [Lopressor -] 25 mg PO BID #60 tablet 06/04/17 Prednisone See Taper PO ASDIR #46 tablet 06/04/17 Pyridostigmine [Mestinon -] 30 mg PO TID #90 tab 06/04/17 This patient is new to me today: No Emergency Visit: Yes ED Registration Date: 05/24/17 Care time: The patient presented to the Emergency Department on the above date and was hospitalized for further evaluation of their emergent condition. Critical Care patient: No - Discharge Referral Referred to [facility] Med P.C.: No
== END 2017-06-04 11:48 | DRG 56 ==
LOC: JER 12:07 → JERBED 19:16 → J5S 21:54 → J2W 05-26 10:10 → J4W 05-28 20:26 → J5S 06-03 13:41
PROVIDERS: ADMIT Internal Medicine; ATTEND Internal Medicine
PROC: 5A09557 Assistance with Respiratory Ventilation, Greater than 96 Consecutive Hours, Continuous Positive Airway Pressure (ICD-10-PCS; principal; 2017-05-24)
DX: G70.01 Myasthenia gravis with (acute) exacerbation (principal); J96.01 Acute respiratory failure with hypoxia; J96.02 Acute respiratory failure with hypercapnia; I21.4 Non-ST elevation (NSTEMI) myocardial infarction; I50.21 Acute systolic (congestive) heart failure; N39.0 Urinary tract infection, site not specified; I24.8 Other forms of acute ischemic heart disease; E87.2 Acidosis; I16.0 Hypertensive urgency; E87.6 Hypokalemia; E83.42 Hypomagnesemia; E11.9 Type 2 diabetes mellitus without complications; E78.5 Hyperlipidemia, unspecified; I48.91 Unspecified atrial fibrillation; D72.829 Elevated white blood cell count, unspecified; R74.0 Nonspecific elevation of levels of transaminase and lactic acid dehydrogenase [LDH]; K75.89 Other specified inflammatory liver diseases; R79.89 Other specified abnormal findings of blood chemistry; I11.0 Hypertensive heart disease with heart failure; R11.0 Nausea; E83.39 Other disorders of phosphorus metabolism; K52.9 Noninfective gastroenteritis and colitis, unspecified
CPT/HCPCS: 36415; 36600; 71010-TC; 74020-TC; 74230-TC; 76705-TC; 76775-TC; 80048; 80053; 80074; 80076; 81003; 81015; 82550; 82728; 82803; 83540; 83550; 83605; 83735; 83880; 84100; 84132; 84443; 84484; 85025; 85027; 85610; 85730; 86038; 86704; 86706; 86708; 86803; 87040; 87045; 87046; 87086; 87205; 87324; 87340; 87449; 92611-GN; 93005; 93010; 93306-TC; 94660; 97116-GP; 97161-GP; 99283-25; J1459; J1644